=== PATIENT | male | born 1945 | race Caucasian/White ===

== ENCOUNTER → 2016-12-31 | Outpatient (CLI) | payer MEDICARE ==
[2016-12-31 10:59] LABS: Basophils # (A) 0.1 k/uL (0-0.2); Basophils % (A) 1 %; CH 30.6; CHCM 34.5; Eosinophils # (A) 0.2 k/uL (0-0.7); Eosinophils % (A) 4 %; HDW 2.33; HGB 15.4 gm/dL (13.0-17.5); Luc # (Auto) 0.17; Luc % (Auto) 3; Lymphocytes # (A) 1.1 k/uL (1.0-4.8); Lymphocytes % (A) 19 %; MCH 30.5 pg (25.0-35.0); MCHC 34.2 g/dL (31.0-37.0); MCV 89.2 fL (80.0-100.0); Mean Platelet Volume 7.3; Monocytes # (A) 0.4 k/uL (0-1.0); Monocytes % (A) 7 %; Neutrophils # (A) 3.7 k/uL (1.3-7.7); Neutrophils % (A) 67 %; RBC 5.04 m/uL (4.30-5.90); RDW 12.9 % (11.5-15.5); WBC 5.6 k/uL (3.8-10.6); WBC (Perox) 5.95
[2016-12-31 11:05] LABS: ALT 33 U/L (21-72); AST 22 U/L (17-59); Alkaline Phosphatase 58 U/L (38-126); Anion Gap 9 mmol/L; Blood Urea Nitrogen 11 mg/dL (9-20); Calcium 10.1 mg/dL (8.4-10.2); Carbon Dioxide 31 mmol/L (22-30); Chloride 96 mmol/L (98-107); Cholesterol 110 mg/dL (<200); Glucose 114 mg/dL (74-99); HDL Cholesterol 57 mg/dL (40-60); Non-African American GFR(MDRD) >60 (>60 ml/min/1.73 sqM); Potassium 4.5 mmol/L (3.5-5.1); Sodium 136 mmol/L (137-145); Total Bilirubin 1.1 mg/dL (0.2-1.3); Total Protein 7.2 g/dL (6.3-8.2); Triglycerides 71 mg/dL (<150)
== END ==
LOC: LABWHC1 08:38
PROVIDERS: ATTEND Internal Medicine
DX: E78.5 Hyperlipidemia, unspecified (principal); I10 Essential (primary) hypertension
CPT/HCPCS: 36415; 80053; 80061; 84439; 84443; 85025

== ENCOUNTER → 2017-02-15 | Outpatient (CLI) | payer MEDICARE ==
--- NOTE | 2017-02-15 12:53 | FL ---
EXAMINATION: Cervical and Thoracic Esophagram DATE OF EXAM: 02/15/2017 10:35 AM CLINICAL INDICATION: 71-year-old male with trouble swallowing. History of stroke one year ago. Laryng ectomy for head and neck cancer 12 years ago. Patient with similar complaints one year ago status pos t dilatation of the cricopharyngeus and multiple Botox injections. COMPARISON: 03/25/2016 Total Fluoroscopy Time: 2.6 minutes FINDINGS: The patient has a stoma. A plastic cap is present overlying. There is a focal somewhat irregular fill ing defect seen at the level of the plastic button along the anterior wall of the cervical esophagus opposite the C7 level which warrants further evaluation with direct visualization. In addition, there is severe hypertrophy of the cricopharyngeus opposite the C4-C5 level. This result s in a relative obstruction causing prominent pooling of contrast in the hypopharyngeal region. Repea lorne swallows allows for gradual passage of contrast. The thoracic esophagus was evaluated with the contrast that was administered for the cervical portion and shows normal course and caliber without suspicious filling defect. The GE junction region is not well distended limiting its evaluation. Air-contrast and prone drinking for the thoracic esophagus w as not performed due to the relative obstruction. IMPRESSION: 1. Status post laryngectomy with a tracheal stoma. A plastic cap is present here. At the level of the cap, there is a focal filling defect along the anterior wall of the cervical esophagus which warrant s direct visualization. This could represent an area of chronic ulceration or scar tissue. Mass shoul d be excluded. 2. Severe cricopharyngeus hypertrophy causing relative obstruction even to the passage of thick bariu m causing progressive pooling in the hypopharynx. Repeated swallows allows for gradual clearance. 3. The thoracic esophagus appears grossly unremarkable. The GE junction region was not well evaluated due to the relative obstruction proximally.
== END | disposition home or self-care (01) ==
LOC: LABWHC1 09:20
PROVIDERS: ATTEND Otolaryngology Otolaryngic Allergy
DX: J39.2 Other diseases of pharynx (principal); R13.10 Dysphagia, unspecified; Z98.890 Other specified postprocedural states
CPT/HCPCS: 74220

== ENCOUNTER → 2018-03-02 | Outpatient (CLI) | payer MEDICARE ==
--- NOTE | 2018-03-02 16:16 | US ---
EXAMINATION TYPE: US venous doppler duplex LE RT DATE OF EXAM: 03/02/2018 4:00 PM COMPARISON: NONE CLINICAL HISTORY: I82.A21 CHR EMBOLISM AND THROMBOSIS OF RT AXILLARY. varicose veins in lower right l eg, no h/o dvt SIDE PERFORMED: Right TECHNIQUE: The lower extremity deep venous system is examined utilizing real time linear array sonog tomas with graded compression, doppler sonography and color-flow sonography. VESSELS IMAGED: External Iliac Vein (EIV) Common Femoral Vein Deep Femoral Vein Greater Saphenous Vein * Femoral Vein Popliteal Vein Small Saphenous Vein * Proximal Calf Veins (* superficial vessels) Grayscale, color doppler, spectral doppler imaging performed of the deep veins of the lower extremiti es. There is normal flow, compressibility, vascular waveforms. Right Leg: Appears negative for DVT IMPRESSION: No evidence for DVT at this time.
== END | disposition home or self-care (01) ==
LOC: RADUSWWP 15:36
PROVIDERS: ATTEND Family Medicine
DX: I82.421 Acute embolism and thrombosis of right iliac vein (principal)

== ENCOUNTER → 2018-12-08 | Outpatient (CLI) | payer MEDICARE ==
--- NOTE | 2018-12-08 16:04 | CT ---
EXAMINATION TYPE: CT chest w con DATE OF EXAM: 12/08/2018 COMPARISON: None HISTORY: 73-year-old male Hemoptysis. TECHNIQUE: Contiguous axial scanning of the chest after the administration of 100 mL of Isovue M300. Coronal/sagittal reconstructions performed. CT DLP: 537.4mGycm. Automatic exposure control utilized for a dose reduction. FINDINGS: Tracheostomy cannula is present. Heart upper limits of normal in size without pericardial effusion. Aorta normal caliber with conventional arch vessel branching anatomy. Large caliber to the main right and left pulmonary arteries 2.9 and 3.2 cm, respectively, suggesting underlying pulmonary hypertension. Prominent but nonenlarged left axillary lymph nodes measuring up t o 9 mm short axis. No thoracic lymphadenopathy by size criteria. Evaluation of the lungs shows medial biapical pleural parenchymal scarring possibly due to prior radi ation treatment. [id number] diffuse bronchial wall thickening is noted 7 mm right basilar pulmonary nodule, axial image 42. No consolidation or pleural effusion. Small hiatal hernia. Hypodense lesions in the right kidney probably represent cysts but are inadequat mandi characterized. 5 mm calculus nonobstructive in the upper pole of each kidney. Additional 7 mm gal lstone noted. 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 IMPRESSION: 1. Query prior radiation therapy to the neck given tracheostomy and some medial biapical fibrosis. 2. Mild to moderate diffuse bronchial wall thickening can be seen with bronchitis or asthma. 3. 7 mm right basilar pulmonary nodule. A 6-12 month and then an 18-24 month follow-up exams are bernardo mmended. 4. Nonobstructive nephrolithiasis and cholelithiasis. Small hiatal hernia.
== END ==
LOC: RADCTMAIN 13:10
PROVIDERS: ATTEND Family Medicine
DX: M79.89 Other specified soft tissue disorders (principal); K44.9 Diaphragmatic hernia without obstruction or gangrene; J98.8 Other specified respiratory disorders; R91.1 Solitary pulmonary nodule; Z92.3 Personal history of irradiation
CPT/HCPCS: 71260; Q9967

== ENCOUNTER 2019-04-12 22:30 | Emergency (ER) | payer MEDICARE ==
[2019-04-12] MEDS ORDERED: SODIUM CHLORIDE 0.9% 1,000 ML IV STA (22:44)
[2019-04-12] MEDS ORDERED: MORPHINE SULFATE 4 MG/ML SYRINGE IV STA (22:44)
--- NOTE | 2019-04-12 22:45 | ED ---
Abdominal Pain HPI - General Chief Complaint: Abdominal Pain Stated Complaint: Back Pain Source: patient, RN notes reviewed, old records reviewed Mode of arrival: ambulatory Limitations: no limitations - History of Present Illness Initial Comments: This is a 73-year-old male the ER for evaluation. Patient Brenning of back pain and right-sided flank pain. He has history of kidney stones feels 7. Nausea vomiting no diarrhea. No traumas. No fevers. No anterior abdominal pain. No modifying symptoms for pain. Symptoms on and off for a day MD Complaint: abdominal pain, flank pain (Right sided) -: days(s) Location: R flank Radiation: R flank Severity: moderate Quality: stabbing Consistency: intermittent Improves With: nothing Worsens With: nothing Associated Symptoms: nausea - Related Data Home Medications Medication Instructions Recorded Confirmed Cholecalciferol [Vitamin D3] 800 unit PO DAILY 01/27/16 04/12/19 Hydrochlorothiazide 12.5 mg PO DAILY 01/27/16 04/12/19 Levothyroxine Sodium [Synthroid] 88 mcg PO DAILY 01/27/16 04/12/19 Lisinopril [Prinivil] 5 mg PO DAILY 01/27/16 04/12/19 amLODIPine [Norvasc] 2.5 mg PO DAILY 01/27/16 04/12/19 Atorvastatin [Lipitor] 20 mg PO DAILY 04/12/19 04/12/19 Glycopyrrolate [Robinul] 1 mg PO DAILY 04/12/19 04/12/19 Previous Rx's Medication Instructions Recorded Aspirin EC [Ecotrin Low Dose] 81 mg PO DAILY #30 tablet. 01/30/16 Naproxen [Naprosyn] 500 mg PO Q12HR PRN #30 tab 04/13/19 Ondansetron Odt [Zofran ODT] 4 mg PO Q8HR PRN #10 tab 04/13/19 Allergies Allergy/AdvReac Type Severity Reaction Status Date / Time No Known Allergies Allergy Verified 04/12/19 23:05 Review of Systems ROS Statement: Those systems with pertinent positive or pertinent negative responses have been documented in the HPI. ROS Other: All systems not noted in ROS Statement are negative. Past Medical History Past Medical History: Cancer, Hypertension Additional Past Medical History / Comment(s): esophageal varices History of Any Multi-Drug Resistant Organisms: None Reported Additional Past Surgical History / Comment(s): Tracheostomy, dilation of esophageal varices. Past Anesthesia/Blood Transfusion Reactions: No Reported Reaction Past Psychological History: No Psychological Hx Reported Smoking Status: Former smoker Past Alcohol Use History: None Reported - Past Family History Father Family Medical History: No Reported History General Exam Limitations: no limitations General appearance: alert, in no apparent distress Head exam: Present: atraumatic, normocephalic, normal inspection Eye exam: Present: normal appearance, PERRL, EOMI. Absent: scleral icterus, conjunctival injection, periorbital swelling ENT exam: Present: normal exam, mucous membranes moist Neck exam: Present: normal inspection. Absent: tenderness, meningismus, lymphadenopathy Respiratory exam: Present: normal lung sounds bilaterally. Absent: respiratory distress, wheezes, rales, rhonchi, stridor Cardiovascular Exam: Present: regular rate, normal rhythm, normal heart sounds. Absent: systolic murmur, diastolic murmur, rubs, gallop, clicks GI/Abdominal exam: Present: soft, normal bowel sounds. Absent: distended, tenderness, guarding, rebound, rigid Extremities exam: Present: normal inspection, full ROM, normal capillary refill. Absent: tenderness, pedal edema, joint swelling, calf tenderness Back exam: Present: normal inspection Neurological exam: Present: alert, oriented X3, CN II-XII intact Psychiatric exam: Present: normal affect, normal mood Skin exam: Present: warm, dry, intact, normal color. Absent: rash Course Vital Signs 04/12/19 04/12/19 04/13/19 22:34 23:07 01:32 Temperature 98.1 F 98.3 F Pulse Rate 69 80 Respiratory 20 18 18 Rate Blood Pressure 177/81 140/74 O2 Sat by Pulse 95 97 Oximetry Medical Decision Making - Medical Decision Making 73 male the ER for evaluation of abdominal pain flank pain. Positive right-sided kidney stone, which she with pain control hydration, patient can be discharged - Lab Data Result diagrams: 04/12/19 22:54 04/12/19 22:54 Lab Results 04/12/19 04/12/19 04/12/19 Range/Units 22:54 22:54 22:54 WBC 14.4 H (3.8-10.6) k/uL RBC 4.87 (4.30-5.90) m/uL Hgb 14.6 (13.0-17.5) gm/dL Hct 43.2 (39.0-53.0) % MCV 88.8 (80.0-100.0) fL MCH 30.1 (25.0-35.0) pg MCHC 33.9 (31.0-37.0) g/dL RDW 13.3 (11.5-15.5) % Plt Count 251 (150-450) k/uL Neutrophils % 87 % Lymphocytes % 5 % Monocytes % 6 % Eosinophils % 1 % Basophils % 0 % Neutrophils # 12.4 H (1.3-7.7) k/uL Lymphocytes # 0.7 L (1.0-4.8) k/uL Monocytes # 0.9 (0-1.0) k/uL Eosinophils # 0.2 (0-0.7) k/uL Basophils # 0.0 (0-0.2) k/uL Sodium 135 L (137-145) mmol/L Potassium 3.7 (3.5-5.1) mmol/L Chloride 95 L (98-107) mmol/L Carbon Dioxide 27 (22-30) mmol/L Anion Gap 13 mmol/L BUN 16 (9-20) mg/dL Creatinine 1.20 (0.66-1.25) mg/dL Est GFR (CKD-EPI)AfAm 70 (>60 ml/min/1.73 sqM) Est GFR (CKD-EPI)NonAf 61 (>60 ml/min/1.73 sqM) Glucose 200 H (74-99) mg/dL Plasma Lactic Acid Uche 1.1 (0.7-2.0) mmol/L Calcium 9.7 (8.4-10.2) mg/dL Total Bilirubin 1.1 (0.2-1.3) mg/dL AST 26 (17-59) U/L ALT 24 (21-72) U/L Alkaline Phosphatase 75 (38-126) U/L Creatine Kinase 162 (55-170) U/L Total Protein 7.4 (6.3-8.2) g/dL Albumin 4.7 (3.5-5.0) g/dL Amylase 43 (30-110) U/L Lipase 46 (23-300) U/L Urine Color Urine Appearance (Clear) Urine pH (5.0-8.0) Ur Specific Leo (1.001-1.035) Urine Protein (Negative) Urine Glucose (UA) (Negative) Urine Ketones (Negative) Urine Blood (Negative) Urine Nitrite (Negative) Urine Bilirubin (Negative) Urine Urobilinogen (<2.0) mg/dL Ur Leukocyte Esterase (Negative) Urine RBC (0-5) /hpf Urine WBC (0-5) /hpf Ur Squamous Epith Cells (0-4) /hpf Urine Mucus (None) /hpf 04/12/19 Range/Units 23:28 WBC (3.8-10.6) k/uL RBC (4.30-5.90) m/uL Hgb (13.0-17.5) gm/dL Hct (39.0-53.0) % MCV (80.0-100.0) fL MCH (25.0-35.0) pg MCHC (31.0-37.0) g/dL RDW (11.5-15.5) % Plt Count (150-450) k/uL Neutrophils % % Lymphocytes % % Monocytes % % Eosinophils % % Basophils % % Neutrophils # (1.3-7.7) k/uL Lymphocytes # (1.0-4.8) k/uL Monocytes # (0-1.0) k/uL Eosinophils # (0-0.7) k/uL Basophils # (0-0.2) k/uL Sodium (137-145) mmol/L Potassium (3.5-5.1) mmol/L Chloride (98-107) mmol/L Carbon Dioxide (22-30) mmol/L Anion Gap mmol/L BUN (9-20) mg/dL Creatinine (0.66-1.25) mg/dL Est GFR (CKD-EPI)AfAm (>60 ml/min/1.73 sqM) Est GFR (CKD-EPI)NonAf (>60 ml/min/1.73 sqM) Glucose (74-99) mg/dL Plasma Lactic Acid Uche (0.7-2.0) mmol/L Calcium (8.4-10.2) mg/dL Total Bilirubin (0.2-1.3) mg/dL AST (17-59) U/L ALT (21-72) U/L Alkaline Phosphatase (38-126) U/L Creatine Kinase (55-170) U/L Total Protein (6.3-8.2) g/dL Albumin (3.5-5.0) g/dL Amylase (30-110) U/L Lipase (23-300) U/L Urine Color Yellow Urine Appearance Clear (Clear) Urine pH 7.0 (5.0-8.0) Ur Specific Leo 1.013 (1.001-1.035) Urine Protein Negative (Negative) Urine Glucose (UA) 1+ H (Negative) Urine Ketones Trace H (Negative) Urine Blood Small H (Negative) Urine Nitrite Negative (Negative) Urine Bilirubin Negative (Negative) Urine Urobilinogen <2.0 (<2.0) mg/dL Ur Leukocyte Esterase Negative (Negative) Urine RBC 79 H (0-5) /hpf Urine WBC 1 (0-5) /hpf Ur Squamous Epith Cells <1 (0-4) /hpf Urine Mucus Rare H (None) /hpf - Radiology Data Radiology results: report reviewed (CT of pelvis shows breath right-sided ureterolithiasis), image reviewed Disposition Clinical Impression: Kidney stone on right side Disposition: HOME SELF-CARE Condition: Good Instructions (If sedation given, give patient instructions): Kidney Stones (ED) Prescriptions: Naproxen [Naprosyn] 500 mg PO Q12HR PRN #30 tab PRN Reason: Pain Ondansetron Odt [Zofran ODT] 4 mg PO Q8HR PRN #10 tab PRN Reason: nausea/vomiting Is patient prescribed a controlled substance at d/c from ED?: No Referrals: Ester Dumont DO [Primary Care Provider] - 1-2 days
[2019-04-12 23:08] VITALS: RESP 18
[2019-04-12 23:34] LABS: Basophils % (A) 0 %; Eosinophils # (A) 0.2 k/uL (0-0.7); Eosinophils % (A) 1 %; HCT 43.2 % (39.0-53.0); HGB 14.6 gm/dL (13.0-17.5); Lymphocytes # (A) 0.7 k/uL (1.0-4.8); Lymphocytes % (A) 5 %; MCH 30.1 pg (25.0-35.0); MCHC 33.9 g/dL (31.0-37.0); MCV 88.8 fL (80.0-100.0); Mean Platelet Volume 6.4; Monocytes # (A) 0.9 k/uL (0-1.0); Monocytes % (A) 6 %; Neutrophils # (A) 12.4 k/uL (1.3-7.7); Neutrophils % (A) 87 %; Platelet Count 251 k/uL (150-450); RBC 4.87 m/uL (4.30-5.90); RDW 13.3 % (11.5-15.5); WBC 14.4 k/uL (3.8-10.6)
[2019-04-12 23:48] LABS: Appearance,Urine Clear (Clear); Bilirubin,Urine Negative (Negative); Blood,Urine Small (Negative); Color,Urine Yellow; Glucose,Urine (UA) 1+ (Negative); Ketones,Urine Trace (Negative); Leukocyte Esterase,Urine Negative (Negative); Mucus,Urine Rare /hpf; Nitrite,Urine Negative (Negative); Protein,Urine Negative (Negative); RBC,Urine 79 /hpf (0-5); Specific Gravity,Urine 1.013 (1.001-1.035); Squamous Epithelial Cell,Urine <1 /hpf (0-4); Urobilinogen,Urine <2.0 mg/dL (<2.0); WBC,Urine 1 /hpf (0-5)
[2019-04-12 23:55] LABS: Albumin 4.7 g/dL (3.5-5.0); Calcium 9.7 mg/dL (8.4-10.2); Potassium 3.7 mmol/L (3.5-5.1); Total Bilirubin 1.1 mg/dL (0.2-1.3); Total Protein 7.4 g/dL (6.3-8.2)
--- NOTE | 2019-04-13 00:40 | CT ---
EXAM: CT Abdomen and Pelvis With Intravenous Contrast CLINICAL HISTORY: Trauma TECHNIQUE: Axial computed tomography images of the abdomen and pelvis with intravenous contrast. CTDI is 0.085, 0.085, 10.1, 11.2 mGy and DLP is 888.5 mGy-cm. This CT exam was performed using one or more of the following dose reduction techniques: automated exposure control, adjustment of the mA and/or kV according to patient size, and/or use of iterative reconstruction technique. COMPARISON: No relevant prior studies available. FINDINGS: Lung bases: Unremarkable. No mass. No consolidation. ABDOMEN: Liver: Unremarkable. Gallbladder and bile ducts: Gallstones. Pancreas: Unremarkable. Spleen: Unremarkable. Adrenals: Unremarkable. Kidneys and ureters: 3 mm calculus within the proximal right ureter which causes mild hydronephrosis and delayed nephrogram. There are additional nonobstructing calculi and cysts within both kidneys. Stomach and bowel: Noninflamed colonic diverticulosis. PELVIS: Appendix: Appendix is unremarkable. Bladder: Unremarkable. Reproductive: Unremarkable as visualized. ABDOMEN and PELVIS: Intraperitoneal space: Unremarkable. Bones/joints: No acute fracture. No dislocation. Soft tissues: Unremarkable. Vasculature: Vascular calcifications. No abdominal aortic aneurysm. Lymph nodes: Unremarkable. IMPRESSION: 1. 3 mm calculus within the proximal right ureter which causes mild hydronephrosis and delayed nephrogram. 2. There are additional nonobstructing calculi and cysts within both kidneys.
[2019-04-13] MEDS ORDERED: ACET/COD 300 MG/30 MG STARTER PACK 6 TAB BTL PO STA (01:00)
[2019-04-13] MEDS ORDERED: TAMSULOSIN 0.4 MG CAP.ER.24H PO STA (01:00)
[2019-04-13] MEDS ORDERED: KETOROLAC 30 MG/ML 1 ML VIAL IVP STA (01:00)
[2019-04-13 01:35] VITALS: BP 140/74; PULSE 80; TEMP 98.3
== END 2019-04-13 01:35 | disposition home or self-care (01) ==
LOC: EC 22:30
DX: N20.0 Calculus of kidney (principal); I10 Essential (primary) hypertension; Z79.899 Other long term (current) drug therapy; Z79.890 Hormone replacement therapy; Z87.891 Personal history of nicotine dependence; Z85.9 Personal history of malignant neoplasm, unspecified
CPT/HCPCS: 36415; 80053; 82150; 82550; 83605; 83690; 85025; 81001; 87086; 74177; 99285; 96374; 96375; 96361; J2270; J1885

== ENCOUNTER → 2022-07-09 | Outpatient (CLI) | payer MEDICARE ==
[2022-07-09 14:28] LABS: Basophils # (A) 0.04 X 10*3/uL (0.00-0.10); Basophils % (A) 0.6 %; Eosinophils # (A) 0.12 X 10*3/uL (0.04-0.35); Eosinophils % (A) 1.8 %; HCT 45.3 % (39.6-50.0); HGB 15.5 g/dL (13.0-17.0); Immature Grans, Automated 0.1 %; Lymphocytes # (A) 1.57 X 10*3/uL (0.90-5.00); Lymphocytes % (A) 23.5 %; MCH 30.9 pg (27.0-32.0); MCHC 34.2 g/dL (32.0-37.0); MCV 90.4 fL (80.0-97.0); Mean Platelet Volume 9.4 fL (9.5-12.2); Monocytes # (A) 0.76 X 10*3/uL (0.20-1.00); Monocytes % (A) 11.4 %; NRBC Per 100 WBC 0 /100 WBCS (0.0-0.0); Neutrophils # (A) 4.18 X 10*3/uL (1.80-7.70); Neutrophils % (A) 62.6 %; Platelet Count 257 X 10*3/uL (140-440); RBC 5.01 X 10*6/uL (4.40-5.60); RDW 13.3 % (11.5-14.5); WBC 6.68 X 10*3/uL (4.50-10.00)
[2022-07-09 14:37] LABS: Anion Gap 9.3 mmol/L (10.00-18.00); Carbon Dioxide 28.7 mmol/L (20.0-27.5)
== END | disposition home or self-care (01) ==
LOC: LABPAT 11:00
PROVIDERS: ATTEND Orthopaedic Surgery
DX: Z01.812 Encounter for preprocedural laboratory examination (principal); G56.01 Carpal tunnel syndrome, right upper limb
CPT/HCPCS: 36415; 80051; 85025

== ENCOUNTER 2022-07-23 14:16 | Day surgery (SDC) | payer MEDICARE ==
[2022-07-22 13:12] VITALS: BMI 27.3
--- NOTE | 2022-07-23 02:21 | HP ---
HISTORY AND PHYSICAL DATE OF SURGERY: 07/23/2022. HISTORY OF PRESENT ILLNESS: Noé Lima is a 76-year-old patient, seen with progressive symptomatic right carpal tunnel syndrome. After treatment options have been discussed with him, he elected to proceed with decompression of right median nerve. Consent regarding the procedure was obtained. PAST MEDICAL HISTORY: Hypertension, hypothyroidism. PAST SURGICAL HISTORY: Tracheostomy and facial surgery. DAILY MEDICATIONS: 1. Hydrochlorothiazide. 2. Lisinopril. 3. Synthroid. 4. Amlodipine. 5. Atorvastatin. ALLERGIES: None reported. SOCIAL HISTORY: He denies tobacco use. PHYSICAL EVALUATION OF THE RIGHT HAND: He has a positive carpal compression and carpal Tinel's exacerbating numbness and tingling throughout the median nerve distribution. There is some early thenar atrophy of the muscle. There is good perfusion distally with a good radial pulse present. RADIOGRAPHS: Reveal some diffuse osteoarthritic changes. A previous EMG reveals severe carpal tunnel syndrome. IMPRESSION: 1. Right carpal tunnel syndrome. 2. Hypertension. 3. Hypothyroidism. PLAN: Decompression of right median nerve. MMODL / IJN: [id number] /
[~2022-07-23 14:16] MED LIST: DEXAMETHASONE SOD PHOSPHATE 4 MG/ML 1 ML VIAL IV ONE; HYDROmorphone 0.5 MG/0.5 ML SYRINGE IVP PRN; LACTATED RINGERS 1,000 ML IV SCH; LIDOCAINE 1% (10MG/ML) FOR IV START INTRADERMA PRN; MIDAZOLAM 2 MG/2 ML VIAL IV PRN; ONDANSETRON 4 MG/2 ML VIAL IVP ONE
[2022-07-23 15:30] VITALS: RESP 16; TEMP 98.2
[2022-07-23 15:49] LABS: Glucose,Whole Blood 105 mg/dL (70-110)
[2022-07-23] MEDS ORDERED: MIDAZOLAM 2 MG/2 ML VIAL ONE (16:41)
[2022-07-23] MEDS ORDERED: PROPOFOL 10 MG/ML 20 ML VIAL IV ONE (16:41)
[2022-07-23] MEDS ORDERED: fentaNYL (PF) 50 MCG/ML 2 ML AMP ONE (16:41)
[2022-07-23] MEDS ORDERED: BUPIVACAINE (PF) 0.25% 30 ML VIAL SQ ONE (16:56)
--- NOTE | 2022-07-23 17:15 | P.OP ---
Date of Procedure: 07/23/22 Preoperative Diagnosis: Right carpal tunnel syndrome Postoperative Diagnosis: Right carpal tunnel syndrome Procedure(s) Performed: Decompression right median nerve Anesthesia: MAC, local Surgeon: Alfie Joseph Estimated Blood Loss (ml): 0 Pathology: none sent Condition: stable Disposition: PACU Indications for Procedure: 76-year-old gentleman seen with symptomatic right carpal tunnel syndrome. After treatment options were discussed, he elected to proceed with decompression right median nerve. Operative Findings: See description of procedure Description of Procedure: Patient was taken to the operative suite. He received preoperative IV antibiotics. Well-padded tourniquet placed proximal right upper extremity. The right upper extremity was prepped and draped in the normal sterile orthopedic fashion. He received IV sedation by the department of anesthesia. The proposed incision site was infiltrated with 10 mL of quarter percent plain Marcaine. Once sufficient local analgesia was noted we elevated the extremity and insufflated tourniquet to 250. I now made an incision beginning at the distal volar wrist crease extending distally approximately 3 cm in line with the fourth metacarpal sharply through skin. We dissected down through the palmar fascia to the transverse carpal ligament. I now made a small incision through the central portion of the transverse carpal ligament. I completely released proximally and distally with blunt Metzenbaums. I noted complete release of the transverse carpal ligament and good decompression of the nerve. We had good hemostasis. We applied sterile dressings. The tourniquet was released and immediate capillary refill noted. Web roll and a loose Coban were applied. Patient was awakened and transferred to recovery stable condition having tolerated well.
[2022-07-23 18:08] VITALS: BP 158/80; PULSE 60
== END 2022-07-23 17:50 | disposition home or self-care (01) ==
LOC: OR 14:16
PROVIDERS: ATTEND Orthopaedic Surgery
DX: G56.01 Carpal tunnel syndrome, right upper limb (principal); I10 Essential (primary) hypertension; E03.9 Hypothyroidism, unspecified; Z93.0 Tracheostomy status; Z98.890 Other specified postprocedural states; Z85.89 Personal history of malignant neoplasm of other organs and systems; Z79.890 Hormone replacement therapy; Z79.899 Other long term (current) drug therapy; Z86.73 Personal history of transient ischemic attack (TIA), and cerebral infarction without residual deficits
CPT/HCPCS: 64721; J2250; J1100; J0690; J2405; J3010; J2704

== ENCOUNTER → 2023-05-28 | Outpatient (CLI) | payer MEDICARE ==
--- NOTE | 2023-05-28 11:59 | MR ---
EXAMINATION TYPE: MR brain wo con DATE OF EXAM: 05/28/2023 COMPARISON: CT brain 01/28/2016 HISTORY: Dizziness. TECHNIQUE: T1-weighted sagittal, T2, FLAIR, and diffusion axial, and T2 coronal coronal views of the brain are submitted. FINDINGS: There is no evidence of acute ischemia. There is any area of encephalomalacia involving the right parietal temporal lobe compatible ischemia. Adjacent increased signal FLAIR imaging likely on the basis of reactive iliopsoas. There is scattered an mild areas of abnormal signal within the deep white matter most typical of barrington te microvascular ischemia. There is moderate sinusitis and bilateral mild chronic mastoiditis. Orbits are symmetric. There appears to be signal within the distal right ICA signal void suggestive of chronic thrombosis. Craniocervical junction is maintained. Sella turcica are normal. Moderate generalized degenerative ch lia. IMPRESSION: 1. No acute intracranial process moderate generalized degenerative change in areas of remote ischemia \encephalomalacia. 2. Moderate changes of chronic sinusitis. 3. Mild bilateral mastoiditis. 4. 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
== END | disposition home or self-care (01) ==
LOC: RADMRIMAIN 10:20
PROVIDERS: ATTEND Family Medicine
DX: J32.9 Chronic sinusitis, unspecified (principal); I63.341 Cerebral infarction due to thrombosis of right cerebellar artery; H70.13 Chronic mastoiditis, bilateral; R42 Dizziness and giddiness
CPT/HCPCS: 70551

== ENCOUNTER 2023-12-17 01:17 | Inpatient (IN) | payer MEDICARE ==
--- NOTE | 2023-12-17 01:45 | ED ---
Fever HPI - General Chief Complaint: Altered Mental Status Stated Complaint: FALL Time Seen by Provider: 12/17/23 01:27 Source: EMS, RN notes reviewed, old records reviewed Mode of arrival: EMS Limitations: altered mental status - History of Present Illness Initial Comments: This is a 78-year-old male to the ER for evaluation of fever. Patient has morgan re fever here in the emergency room. Not feeling well cough and congestion for unknown amount time. Patient is unable to provide history secondary to inability to speak MD Complaint: fever, malaise, weakness -: hour(s) Temperature Source: subjective Associated Symptoms: chills, rigors Treatments Prior to Arrival: none - Related Data Home Medications Medication Instructions Recorded Confirmed Levothyroxine Sodium [Synthroid] 88 mcg PO DAILY 01/27/16 12/17/23 Glycopyrrolate [Robinul] 2 mg PO TID 04/12/19 12/17/23 Cholecalciferol [Vitamin D3 (25 25 mcg PO DAILY 12/17/23 12/17/23 Mcg = 1000 Iu)] Cyclobenzaprine [Flexeril] 5 mg PO TID 12/17/23 12/17/23 Previous Rx's Medication Instructions Recorded Aspirin EC [Ecotrin Low Dose] 81 mg PO DAILY #30 tablet. 01/30/16 Atorvastatin [Lipitor] 40 mg PO HS tab 12/19/23 cefTRIAXone [Rocephin] 2 gm IVPB Q12HR each 12/19/23 Allergies Allergy/AdvReac Type Severity Reaction Status Date / Time No Known Allergies Allergy Verified 12/17/23 08:00 Review of Systems ROS Statement: Those systems with pertinent positive or pertinent negative responses have been documented in the HPI. ROS Other: All systems not noted in ROS Statement are negative. Past Medical History Past Medical History: Cancer, Hypertension Additional Past Medical History / Comment(s): esophageal varices History of Any Multi-Drug Resistant Organisms: None Reported Additional Past Surgical History / Comment(s): Tracheostomy, dilation of esophageal varices. Past Anesthesia/Blood Transfusion Reactions: No Reported Reaction Past Psychological History: No Psychological Hx Reported Smoking Status: Former smoker - Past Family History Father Family Medical History: No Reported History, Unable to Obtain General Exam Limitations: altered mental status General appearance: alert, in no apparent distress Head exam: Present: atraumatic, normocephalic, normal inspection Eye exam: Present: normal appearance, PERRL, EOMI. Absent: scleral icterus, conjunctival injection, periorbital swelling ENT exam: Present: normal exam, mucous membranes moist Neck exam: Present: normal inspection. Absent: tenderness, meningismus, lymphadenopathy Respiratory exam: Present: normal lung sounds bilaterally. Absent: respiratory distress, wheezes, rales, rhonchi, stridor Cardiovascular Exam: Present: regular rate, normal rhythm, normal heart sounds. Absent: systolic murmur, diastolic murmur, rubs, gallop, clicks GI/Abdominal exam: Present: soft, normal bowel sounds. Absent: distended, te nderness, guarding, rebound, rigid Extremities exam: Present: normal inspection, full ROM, normal capillary refill. Absent: tenderness, pedal edema, joint swelling, calf tenderness Back exam: Present: normal inspection Neurological exam: Present: alert, oriented X3, CN II-XII intact Psychiatric exam: Present: normal affect, normal mood Skin exam: Present: warm, dry, intact, normal color. Absent: rash Course Vital Signs 12/17/23 12/17/23 12/17/23 01:23 02:04 03:00 Temperature 101.6 F H Pulse Rate 124 H 122 H 102 H Respiratory 18 20 24 Rate Blood Pressure 147/81 154/91 124/70 O2 Sat by Pulse 94 L 94 L 92 L Oximetry 12/17/23 12/17/23 12/17/23 05:00 06:40 08:20 Temperature 98.7 F 98.1 F Pulse Rate 95 92 Respiratory 26 H 22 Rate Blood Pressure 111/72 O2 Sat by Pulse 90 L Oximetry 12/17/23 12/17/23 12/17/23 08:30 08:40 08:50 Temperature Pulse Rate 85 92 Respiratory 9 L 15 35 H Rate Blood Pressure O2 Sat by Pulse Oximetry 12/17/23 12/17/23 12/17/23 09:00 09:10 09:20 Temperature Pulse Rate 86 90 90 Respiratory 32 H 9 L 24 Rate Blood Pressure O2 Sat by Pulse Oximetry 12/17/23 12/17/23 12/17/23 09:30 09:40 09:50 Temperature 98.4 F Pulse Rate 89 91 Respiratory 29 H 33 H 18 Rate Blood Pressure 127/82 O2 Sat by Pulse 92 L Oximetry 12/17/23 12/17/2324 10:00 10:10 10:20 Temperature Pulse Rate 92 89 105 H Respiratory 16 36 H 19 Rate Blood Pressure 127/82 127/82 127/82 O2 Sat by Pulse Oximetry 12/17/23 12/17/23 12/17/23 10:30 10:40 10:50 Temperature Pulse Rate 89 95 Respiratory 23 28 H 23 Rate Blood Pressure 127/82 127/82 127/82 O2 Sat by Pulse Oximetry 12/17/23 12/17/23 12/17/23 11:00 11:10 11:20 Temperature Pulse Rate 100 103 H 96 Respiratory 22 25 H 22 Rate Blood Pressure 127/82 127/82 O2 Sat by Pulse Oximetry 12/17/23 12/17/23 12/17/23 11:30 11:40 11:50 Temperature Pulse Rate 107 H Respiratory 35 H Rate Blood Pressure 127/82 127/82 127/82 O2 Sat by Pulse Oximetry 12/17/23 12/17/23 12/17/23 12:00 12:11 12:20 Temperature Pulse Rate Respiratory Rate Blood Pressure 127/82 127/82 127/82 O2 Sat by Pulse Oximetry 12/17/23 12/17/23 12/17/23 12:30 12:40 12:42 Temperature 98.4 F Pulse Rate Respiratory Rate Blood Pressure 127/82 127/82 O2 Sat by Pulse Oximetry 12/17/23 12/17/23 12/17/23 12:50 13:00 13:10 Temperature Pulse Rate Respiratory Rate Blood Pressure 127/82 127/82 127/82 O2 Sat by Pulse Oximetry 12/17/23 12/17/23 12/17/23 13:20 13:30 13:40 Temperature Pulse Rate Respiratory Rate Blood Pressure 127/82 127/82 127/82 O2 Sat by Pulse Oximetry 12/17/23 12/17/23 12/17/23 13:50 14:00 14:09 Temperature 101.6 F H Pulse Rate 95 Respiratory 26 H Rate Blood Pressure 127/82 127/82 166/95 O2 Sat by Pulse 92 L Oximetry - Reevaluation(s) Reevaluation #1: 12/17/23 01:45 Medical records reviewed Reevaluation #2: Patient symptoms are improved here in the ER with improved vital signs, symptom control Reevaluation #3: Patient informed of results and questions answered Reevaluation #4: Was pt. sent in by a medical professional or institution (, PA, [employer], urgent care, hospital, or senior care...) When possible be specific @ -no Did you speak to anyone other than the patient for history (EMS, parent, family, police, friend...)? What history was obtained from this source @ -no Did you review nursing and triage notes (agree or disagree)? Why? @ -agree Are old charts reviewed (outside hosp., previous admission, EMS record, old EKG, old radiological studies, urgent care reports/EKG's, senior care records)? Report findings @ -yes Differential Diagnosis (chest pain, altered mental status, abdominal pain women, abdominal pain men, vaginal bleeding, weakness, fever, dyspnea, syncope, headache, dizziness, GI bleed, back pain, seizure, CVA, palpatations, mental health, musculoskeletal)? @ -prior EKG interpreted by me (3pts min.). @ -yes X-rays interpreted by me (1pt min.). @ -yes negative for acute disease CT interpreted by me (1pt min.). @ -no U/S interpreted by me (1pt. min.). @ -no What testing was considered but not performed or refused? (CT, X-rays, U/S, l abs)? Why? @ -none What meds were considered but not given or refused? Why? @ -none Did you discuss the management of the patient with other professionals (professionals i.e. , [facility], [employer], lab, RT, psych nurse, social media marketer, family living educator, teacher, community reinvestment act officer, case monitor)? Give summary @ -no Was smoking cessation discussed for >3mins.? @ -no Was critical care preformed (if so, how long)? @ -yes31 Were there social determinants of health that impacted care today? How? (Homelessness, low income, unemployed, alcoholism, drug addiction, transportation, low edu. Level, literacy, decrease access to med. care, long term, rehab)? @ -none Was there de-escalation of care discussed even if they declined (Discuss DNR or withdrawal of care, Hospice)? DNR status @ -no What co-morbidities impacted this encounter? (DM, HTN, Smoking, COPD, CAD, Cancer, CVA, ARF, Chemo, Hep., AIDS, mental health diagnosis, sleep apnea, morbid obesity)? @ -none Was patient admitted / discharged? Hospital course, mention meds given and route, prescriptions, significant lab abnormalities, going to OR and other pertinent info. @ - 78 male to be admitted with a fall, multiple falls tonight with fever and weakness. Likely cause of sepsis. No cause of fever found, patient will be admitted for IV antibiotics and further evaluation of severe weakness persisting and increasing weakness Admitted Undiagnosed new problem with uncertain prognosis? @ -no Drug Therapy requiring intensive monitoring for toxicity (Heparin, Nitro, Insulin, Cardizem)? @ -no Were any procedures done? @ -no Diagnosis/symptom? @ -Fever, weakness, suspect underlying pneumonia Acute, or Chronic, or Acute on Chronic? @ -Acute Uncomplicated (without systemic symptoms) or Complicated (systemic symptoms)? @ -Complicated Side effects of treatment? @ -no Exacerbation, Progression, or Severe Exacerbation? @ -exacerbation Poses a threat to life or bodily function? How? (Chest pain, USA, PA, pneumonia, PE, COPD, DKA, ARF, appy, cholecystitis, CVA, Diverticulitis, Homicidal, Suicidal, threat to staff... and all critical care pts) @ -yes Reevaluation #5: Differential Fever: Pneumonia, viral URI, endocarditis, myocarditis, pericarditis, otitis, sinusitis, peritonsillar Abscess, retropharyngeal Abscess, epiglottitis, peritonitis, appendicitis, Chrissy cystitis, diverticulitis, hepatitis, colitis, UTI, PID, TOA, pyelonephritis, prostatitis, epididymitis, meningitis, encephalitis, pulmonary embolism, CVA, thyroid storm, pancreatitis, adrenal crisis, cavernous sinus thrombosis, this is not meant to be an all-inclusive list. - Consultations Consultation #1: Spoke with admitting physicians who agreed to admit this patient Procedures - Sepsis Sepsis Focused Exam #1 Time Sepsis Criteria Met: 04:00 Sepsis Focused Exam Date: 12/17/23 Sepsis Focused Exam Time: 07:00 Sepsis Focused Exam Complete: Yes Vital Signs & RN Notes Reviewed: Yes Capillary Refill: < 2 Seconds: Fingers, Toes Peripheral Pulses: Normal: Radial (R), Radial (L), Posterior Tibialis (R), Posterior Tibialis (L), Dorsalis Pedis (R), Dorsalis Pedis (L) Skin Color: Normal for Patient, Ashsara Respiratory Exam: normal lung sounds Cardiovascular Exam: tachycardia Medical Decision Making - Medical Decision Making 78 male to be admitted with a fall, multiple falls tonight with fever and weakness. No cause of fever found, patient will be admitted for IV antibiotics and further evaluation of severe weakness persisting and increasing weakness - Lab Data Result diagrams: 12/20/23 04:11 12/20/23 04:11 Lab Results 12/17/23 12/17/23 12/17/23 Range/Units 01:48 01:48 01:48 WBC 13.8 H (3.8-10.6) k/uL RBC 4.07 L (4.30-5.90) m/uL Hgb 12.2 L (13.0-17.5) gm/dL Hct 35.5 L (39.0-53.0) % MCV 87.3 (80.0-100.0) fL MCH 30.0 (25.0-35.0) pg MCHC 34.4 (31.0-37.0) g/dL RDW 13.0 (11.5-15.5) % Plt Count 320 (150-450) k/uL MPV 8.3 Neutrophils % 91 % Lymphocytes % 1 % Monocytes % 7 % Eosinophils % 0 % Basophils % 0 % Neutrophils # 12.6 H (1.3-7.7) k/uL Lymphocytes # 0.2 L (1.0-4.8) k/uL Monocytes # 0.9 (0-1.0) k/uL Eosinophils # 0.0 (0-0.7) k/uL Basophils # 0.0 (0-0.2) k/uL Sample Site ABG pH (7.35-7.45) ABG pCO2 (35-45) mmHg ABG pO2 (83-108) mmHg ABG HCO3 (21-25) mmol/L ABG Total CO2 (19-24) mmol/L ABG O2 Saturation (94-97) % ABG Base Excess mmol/L Mohinder Test FiO2 % Sodium 130 L (137-145) mmol/L Potassium 4.3 (3.5-5.1) mmol/L Chloride 96 L (98-107) mmol/L Carbon Dioxide 21 L (22-30) mmol/L Anion Gap 13 mmol/L BUN 16 (9-20) mg/dL Creatinine 0.81 (0.66-1.25) mg/dL Est GFR (CKD-EPI)AfAm >90 (>60 ml/min/1.73 sqM) Est GFR (CKD-EPI)NonAf 86 (>60 ml/min/1.73 sqM) Glucose 223 H (74-99) mg/dL POC Glucose (mg/dL) (70-110) mg/dL POC Glu Kitchen Assistant ID Lactic Ac Sepsis Rflx Plasma Lactic Acid [place]che (0.7-2.0) mmol/L Calcium 8.8 (8.4-10.2) mg/dL Phosphorus 2.9 (2.5-4.5) mg/dL Magnesium 1.9 (1.6-2.3) mg/dL Total Bilirubin 1.3 (0.2-1.3) mg/dL AST 88 H (17-59) U/L ALT 135 H (4-49) U/L Alkaline Phosphatase 113 (38-126) U/L Ammonia (<30) umol/L Total Protein 7.2 (6.3-8.2) g/dL Albumin 3.7 (3.5-5.0) g/dL Procalcitonin (0.02-0.09) ng/mL Urine Color Light Yellow Urine Appearance Clear (Clear) Urine pH 5.5 (5.0-8.0) Ur Specific [place] 1.014 (1.001-1.035) Urine Protein Trace H (Negative) Urine Glucose (UA) 1+ H (Negative) Urine Ketones 1+ H (Negative) Urine Blood Trace H (Negative) Urine Nitrite Negative (Negative) Urine Bilirubin Negative (Negative) Urine Urobilinogen <2.0 (<2.0) mg/dL Ur Leukocyte Esterase Negative (Negative) Urine RBC 4 (0-5) /hpf Urine WBC 6 H (0-5) /hpf Ur Squamous Epith Cells <1 (0-4) /hpf Urine Bacteria Rare H (None) /hpf Hyaline Casts 13 H (0-2) /lpf Urine Mucus Rare H (None) /hpf Influenza Type A (PCR) (Not Detectd) Influenza Type B (PCR) (Not Detectd) RSV (PCR) (Not Detectd) SARS-CoV-2 (PCR) (Not Detectd) 12/17/23 12/17/23 12/17/23 Range/Units 01:48 01:48 02:29 WBC (3.8-10.6) k/uL RBC (4.30-5.90) m/uL Hgb (13.0-17.5) gm/dL Hct (39.0-53.0) % MCV (80.0-100.0) fL MCH (25.0-35.0) pg MCHC (31.0-37.0) g/dL RDW (11.5-15.5) % Plt Count (150-450) k/uL MPV Neutrophils % % Lymphocytes % % Monocytes % % Eosinophils % % Basophils % % Neutrophils # (1.3-7.7) k/uL Lymphocytes # (1.0-4.8) k/uL Monocytes # (0-1.0) k/uL Eosinophils # (0-0.7) k/uL Basophils # (0-0.2) k/uL Sample Site ABG pH (7.35-7.45) ABG pCO2 (35-45) mmHg ABG pO2 (83-108) mmHg ABG HCO3 (21-25) mmol/L ABG Total CO2 (19-24) mmol/L ABG O2 Saturation (94-97) % ABG Base Excess mmol/L Mohinder Test FiO2 % Sodium (137-145) mmol/L Potassium (3.5-5.1) mmol/L Chloride (98-107) mmol/L Carbon Dioxide (22-30) mmol/L Anion Gap mmol/L BUN (9-20) mg/dL Creatinine (0.66-1.25) mg/dL Est GFR (CKD-EPI)AfAm (>60 ml/min/1.73 sqM) Est GFR (CKD-EPI)NonAf (>60 ml/min/1.73 sqM) Glucose (74-99) mg/dL POC Glucose (mg/dL) (70-110) mg/dL POC Glu Kitchen Assistant ID Lactic Ac Sepsis Rflx Y Plasma Lactic Acid Uche 3.2 H* (0.7-2.0) mmol/L Calcium (8.4-10.2) mg/dL Phosphorus (2.5-4.5) mg/dL Magnesium (1.6-2.3) mg/dL Total Bilirubin (0.2-1.3) mg/dL AST (17-59) U/L ALT (4-49) U/L Alkaline Phosphatase (38-126) U/L Ammonia (<30) umol/L Total Protein (6.3-8.2) g/dL Albumin (3.5-5.0) g/dL Procalcitonin (0.02-0.09) ng/mL Urine Color Urine Appearance (Clear) Urine pH (5.0-8.0) Ur Specific [place] (1.001-1.035) Urine Protein (Negative) Urine Glucose (UA) (Negative) Urine Ketones (Negative) Urine Blood (Negative) Urine Nitrite (Negative) Urine Bilirubin (Negative) Urine Urobilinogen (<2.0) mg/dL Ur Leukocyte Esterase (Negative) Urine RBC (0-5) /hpf Urine WBC (0-5) /hpf Ur Squamous Epith Cells (0-4) /hpf Urine Bacteria (None) /hpf Hyaline Casts (0-2) /lpf Urine Mucus (None) /hpf Influenza Type A (PCR) Not Detected (Not Detectd) Influenza Type B (PCR) Not Detected (Not Detectd) RSV (PCR) Not Detected (Not Detectd) SARS-CoV-2 (PCR) Not Detected (Not Detectd) 12/17/23 12/17/23 12/17/23 Range/Units 05:15 09:33 15:18 WBC (3.8-10.6) k/uL RBC (4.30-5.90) m/uL Hgb (13.0-17.5) gm/dL Hct (39.0-53.0) % MCV (80.0-100.0) fL MCH (25.0-35.0) pg MCHC (31.0-37.0) g/dL RDW (11.5-15.5) % Plt Count (150-450) k/uL MPV Neutrophils % % Lymphocytes % % Monocytes % % Eosinophils % % Basophils % % Neutrophils # (1.3-7.7) k/uL Lymphocytes # (1.0-4.8) k/uL Monocytes # (0-1.0) k/uL Eosinophils # (0-0.7) k/uL Basophils # (0-0.2) k/uL Sample Site ABG pH (7.35-7.45) ABG pCO2 (35-45) mmHg ABG pO2 (83-108) mmHg ABG HCO3 (21-25) mmol/L ABG Total CO2 (19-24) mmol/L ABG O2 Saturation (94-97) % ABG Base Excess mmol/L Mohinder Test FiO2 % Sodium (137-145) mmol/L Potassium (3.5-5.1) mmol/L Chloride (98-107) mmol/L Carbon Dioxide (22-30) mmol/L Anion Gap mmol/L BUN (9-20) mg/dL Creatinine (0.66-1.25) mg/dL Est GFR (CKD-EPI)AfAm (>60 ml/min/1.73 sqM) Est GFR (CKD-EPI)NonAf (>60 ml/min/1.73 sqM) Glucose (74-99) mg/dL POC Glucose (mg/dL) 189 H (70-110) mg/dL POC Glu Kitchen Assistant ID Roopa Castellano Lactic Ac Sepsis Rflx Plasma Lactic Acid Uche 1.5 (0.7-2.0) mmol/L Calcium (8.4-10.2) mg/dL Phosphorus (2.5-4.5) mg/dL Magnesium (1.6-2.3) mg/dL Total Bilirubin (0.2-1.3) mg/dL AST (17-59) U/L ALT (4-49) U/L Alkaline Phosphatase (38-126) U/L Ammonia (<30) umol/L Total Protein (6.3-8.2) g/dL Albumin (3.5-5.0) g/dL Procalcitonin 0.43 H (0.02-0.09) ng/mL Urine Color Urine Appearance (Clear) Urine pH (5.0-8.0) Ur Specific [place] (1.001-1.035) Urine Protein (Negative) Urine Glucose (UA) (Negative) Urine Ketones (Negative) Urine Blood (Negative) Urine Nitrite (Negative) Urine Bilirubin (Negative) Urine Urobilinogen (<2.0) mg/dL Ur Leukocyte Esterase (Negative) Urine RBC (0-5) /hpf Urine WBC (0-5) /hpf Ur Squamous Epith Cells (0-4) /hpf Urine Bacteria (None) /hpf Hyaline Casts (0-2) /lpf Urine Mucus (None) /hpf Influenza Type A (PCR) (Not Detectd) Influenza Type B (PCR) (Not Detectd) RSV (PCR) (Not Detectd) SARS-CoV-2 (PCR) (Not Detectd) 12/17/23 12/17/23 12/17/23 Range/Units 15:31 15:51 18:27 WBC (3.8-10.6) k/uL RBC (4.30-5.90) m/uL Hgb (13.0-17.5) gm/dL Hct (39.0-53.0) % MCV (80.0-100.0) fL MCH (25.0-35.0) pg MCHC (31.0-37.0) g/dL RDW (11.5-15.5) % Plt Count (150-450) k/uL MPV Neutrophils % % Lymphocytes % % Monocytes % % Eosinophils % % Basophils % % Neutrophils # (1.3-7.7) k/uL Lymphocytes # (1.0-4.8) k/uL Monocytes # (0-1.0) k/uL Eosinophils # (0-0.7) k/uL Basophils # (0-0.2) k/uL Sample Site rrad ABG pH 7.48 H (7.35-7.45) ABG pCO2 31 L (35-45) mmHg ABG pO2 67 L (83-108) mmHg ABG HCO3 23 (21-25) mmol/L ABG Total CO2 24 (19-24) mmol/L ABG O2 Saturation 94.0 (94-97) % ABG Base Excess -0.4 mmol/L Mohinder Test Yes FiO2 40 % Sodium (137-145) mmol/L Potassium (3.5-5.1) mmol/L Chloride (98-107) mmol/L Carbon Dioxide (22-30) mmol/L Anion Gap mmol/L BUN (9-20) mg/dL Creatinine (0.66-1.25) mg/dL Est GFR (CKD-EPI)AfAm (>60 ml/min/1.73 sqM) Est GFR (CKD-EPI)NonAf (>60 ml/min/1.73 sqM) Glucose (74-99) mg/dL POC Glucose (mg/dL) 184 H (70-110) mg/dL POC Glu Kitchen Assistant ID Yeni Miller Lactic Ac Sepsis Rflx Plasma Lactic Acid Uche (0.7-2.0) mmol/L Calcium (8.4-10.2) mg/dL Phosphorus (2.5-4.5) mg/dL Magnesium (1.6-2.3) mg/dL Total Bilirubin (0.2-1.3) mg/dL AST (17-59) U/L ALT (4-49) U/L Alkaline Phosphatase (38-126) U/L Ammonia 9 (<30) umol/L Total Protein (6.3-8.2) g/dL Albumin (3.5-5.0) g/dL Procalcitonin (0.02-0.09) ng/mL Urine Color Urine Appearance (Clear) Urine pH (5.0-8.0) Ur Specific [place] (1.001-1.035) Urine Protein (Negative) Urine Glucose (UA) (Negative) Urine Ketones (Negative) Urine Blood (Negative) Urine Nitrite (Negative) Urine Bilirubin (Negative) Urine Urobilinogen (<2.0) mg/dL Ur Leukocyte Esterase (Negative) Urine RBC (0-5) /hpf Urine WBC (0-5) /hpf Ur Squamous Epith Cells (0-4) /hpf Urine Bacteria (None) /hpf Hyaline Casts (0-2) /lpf Urine Mucus (None) /hpf Influenza Type A (PCR) (Not Detectd) Influenza Type B (PCR) (Not Detectd) RSV (PCR) (Not Detectd) SARS-CoV-2 (PCR) (Not Detectd) - EKG Data -: EKG Interpreted by Me (EKG is sinus tachycardia 117 OH 161 QRS 106 QTc 303) Critical Care Time Critical Care Time: Yes Total Critical Care Time: 31 Disposition Clinical Impression: Altered mental status, Fever, Weakness, Urinary retention, History of throat cancer, Sepsis, Pneumonia Disposition: ADMITTED IP TO THIS HOSP Condition: Fair Is patient prescribed a controlled substance at d/c from ED?: No Time of Disposition: 06:00
[2023-12-17] MEDS: ACETAMINOPHEN IV (For NPO) 1,000 MG in EMPTY BAG 1 BAG IVPB ONE (02:00)
[2023-12-17] MEDS: SODIUM CHLORIDE 0.9% 1,000 ML IV STA (02:01)
[2023-12-17] MEDS: SODIUM CHLORIDE 0.9% 500 ML 500 ML IV STA (02:01)
[2023-12-17 02:16] LABS: ALT 135 U/L (4-49); AST 88 U/L (17-59); African American GFR (CKD) >90 (>60 ml/min/1.73 sqM); Albumin 3.7 g/dL (3.5-5.0); Alkaline Phosphatase 113 U/L (38-126); Anion Gap 13 mmol/L; Blood Urea Nitrogen 16 mg/dL (9-20); Calcium 8.8 mg/dL (8.4-10.2); Carbon Dioxide 21 mmol/L (22-30); Chloride 96 mmol/L (98-107); Glucose 223 mg/dL (74-99); Magnesium 1.9 mg/dL (1.6-2.3); Non-African American GFR(CKD) 86 (>60 ml/min/1.73 sqM); Phosphorus 2.9 mg/dL (2.5-4.5); Sodium 130 mmol/L (137-145); Total Bilirubin 1.3 mg/dL (0.2-1.3); Total Protein 7.2 g/dL (6.3-8.2)
--- NOTE | 2023-12-17 02:21 | XR ---
EXAMINATION TYPE: XR chest 1V portable DATE OF EXAM: 12/17/2023 COMPARISON: Chest CT December 08, 2018 HISTORY: Chest pain TECHNIQUE: Single frontal view of the chest is obtained. FINDINGS: There is some chronic parenchymal changes bilaterally without suspicious focal air space o pacity, pleural effusion, or pneumothorax seen. Cardiomegaly is redemonstrated. Osseous structures ar e intact. IMPRESSION: Cardiomegaly without acute pulmonary process.
[2023-12-17 02:26] LABS: Potassium 4.3 mmol/L (3.5-5.1)
[2023-12-17 02:44] LABS: Basophils % (A) 0 %; Eosinophils % (A) 0 %; HCT 35.5 % (39.0-53.0); HGB 12.2 gm/dL (13.0-17.5); Lymphocytes # (A) 0.2 k/uL (1.0-4.8); Lymphocytes % (A) 1 %; MCHC 34.4 g/dL (31.0-37.0); MCV 87.3 fL (80.0-100.0); Mean Platelet Volume 8.3; Monocytes # (A) 0.9 k/uL (0-1.0); Monocytes % (A) 7 %; Neutrophils # (A) 12.6 k/uL (1.3-7.7); Neutrophils % (A) 91 %; Platelet Count 320 k/uL (150-450); RBC 4.07 m/uL (4.30-5.90); WBC 13.8 k/uL (3.8-10.6)
[2023-12-17] MEDS: IBUPROFEN IV 800 MG in SODIUM CHLORIDE 0.9% 250 ML IV ONE (02:45)
[2023-12-17 03:25] LABS: Appearance,Urine Clear (Clear); Bacteria,Urine Rare /hpf; Bilirubin,Urine Negative (Negative); Blood,Urine Trace (Negative); Color,Urine Light Yellow; Glucose,Urine (UA) 1+ (Negative); Hyaline Casts,Urine 13 /lpf (0-2); Ketones,Urine 1+ (Negative); Leukocyte Esterase,Urine Negative (Negative); Mucus,Urine Rare /hpf; Nitrite,Urine Negative (Negative); PH, Urine 5.5 (5.0-8.0); Protein,Urine Trace (Negative); RBC,Urine 4 /hpf (0-5); Specific Gravity,Urine 1.014 (1.001-1.035); Squamous Epithelial Cell,Urine <1 /hpf (0-4); Urobilinogen,Urine <2.0 mg/dL (<2.0); WBC,Urine 6 /hpf (0-5)
[2023-12-17] MEDS ORDERED: ONDANSETRON 4 MG/2 ML VIAL IVP PRN (06:05)
[2023-12-17] MEDS ORDERED: NALOXONE 0.4 MG/ML 1 ML VIAL IV PRN (06:05)
[2023-12-17] MEDS: AZITHROMYCIN 500 MG in SODIUM CHLORIDE 0.9% 250 ML IVPB STA (06:58)
[2023-12-17] MEDS: SODIUM CHLORIDE 0.9% 1,000 ML IV SCH (07:05)
[2023-12-17] MEDS: GLYCOPYRROLATE 1 MG TAB PO SCH (09:50)
[2023-12-17] MEDS: LISINOPRIL-HCTZ 20-25 MG 1 EACH TAB PO SCH (09:50)
[2023-12-17] MEDS: amLODIPine 5 MG TAB PO SCH (09:50)
[2023-12-17] MEDS: LEVOTHYROXINE 88 MCG TAB PO SCH (09:50)
--- NOTE | 2023-12-17 10:14 | P.CNPUL ---
History of Present Illness Consult date: 12/17/23 Requesting physician: James Betancur Reason for consult: dyspnea Chief complaint: Fever, weakness History of present illness: This is a 78-year-old male patient with a known history of hypertension, hypothyroidism, diabetes mellitus and previous throat cancer status post permanent tracheostomy tube placement. Proximally 1 week ago at [facility] he had undergone dilatation for esophageal stricture. Since that time he has not had a bowel movement and has had difficulty in urination. Yesterday he was having significant weakness and felt 2 times. He also was found to have a fever. Was brought in to the hospital here early this morning. White count 13.8. Hemoglobin 12.2. Sodium 130. Potassium 4.4. Bicarb 21. BUN 16. Creatinine 0.81. Glucose 223. Initial lactic acid 3.2, currently 1.5. AST 88. ALT 135. Urinalysis with trace protein 1+ glucose. 1+ ketones high WBCs and rare bacteria. Viral screen was negative. Chest x-ray revealed cardiomegaly but no acute cardiopulmonary process. He is seen today in consultation in the emergency department. He is currently sitting up on the stretcher. Awake and alert. Denies any worsening shortness of breath, cough or congestion. His main complaint was of a headache which seems to have improved. He has been initiated on ceftriaxone and azithromycin. Normal saline at 130 MLS per hour. He received 1500 mL of fluid resuscitation with normal saline. He received Tylenol for his fever and is currently afebrile. Hemodynamically stable. Maintaining O2 saturation in the 90s on room air. Review of Systems REVIEW OF SYSTEMS: CONSTITUTIONAL: Positive for generalized weakness, falls. Denies any recent significant weight loss or weight gain. EYES: Denies change in vision. EARS, NOSE, MOUTH, THROAT: Positive for headaches, denies sore throat. CARDIOVASCULAR: Denies chest pain, palpitations or syncopal episodes. RESPIRATORY: Denies shortness of breath, cough, congestion or hemoptysis. GASTROINTESTINAL: Positive for constipation, denies abdominal pain GENITOURINARY: Positive for urinary retention. MUSKULOSKELETAL: Denies pain, denies swelling. INTEGUMENTARY: Denies rash, denies eczema. NEUROLOGICAL: Denies recent memory loss, no recent seizure activity. PSYCHIATRIC: Denies anxiety, denies depression. HEMATOLOGIC/LYMPHATIC: Denies anemia, denies enlarged lymph nodes. Past Medical History Past Medical History: Cancer, Hypertension Additional Past Medical History / Comment(s): esophageal varices History of Any Multi-Drug Resistant Organisms: None Reported Additional Past Surgical History / Comment(s): Tracheostomy, dilation of esophageal varices. Past Anesthesia/Blood Transfusion Reactions: No Reported Reaction Past Psychological History: No Psychological Hx Reported Smoking Status: Former smoker - Past Family History Father Family Medical History: No Reported History, Unable to Obtain Medications and Allergies Home Medications Medication Instructions Recorded Confirmed Type Levothyroxine Sodium [Synthroid] 88 mcg PO DAILY 01/27/16 12/17/23 History amLODIPine [Norvasc] 5 mg PO DAILY 01/27/16 12/17/23 History Aspirin EC [Ecotrin Low Dose] 81 mg PO DAILY #30 tablet. 01/30/16 12/17/23 Rx Glycopyrrolate [Robinul] 2 mg PO TID 04/12/19 12/17/23 History Cholecalciferol [Vitamin D3 (25 25 mcg PO DAILY 12/17/23 12/17/23 History Mcg = 1000 Iu)] Cyclobenzaprine [Flexeril] 5 mg PO TID 12/17/23 12/17/23 History Hydrocodone/Acetaminophen 15 ml PO Q6H 12/17/23 12/17/23 History [Hydrocodone/Acetaminophen 7.5-325/15 ML] Ibuprofen [Motrin] 600 mg PO TID 12/17/23 12/17/23 History Lisinopril/Hydrochlorothiazide 1 tab PO DAILY 12/17/23 12/17/23 History [Zestoretic 20-25] Omeprazole [PriLOSEC] 40 mg PO DAILY 12/17/23 12/17/23 History Allergies Allergy/AdvReac Type Severity Reaction Status Date / Time No Known Allergies Allergy Verified 12/17/23 08:00 Physical Exam Vitals: Vital Signs Temp Pulse Resp BP Pulse Ox 12/17/23 09:50 98.4 F 92 16 127/82 92 L 12/17/23 06:40 98.1 F 12/17/23 05:00 98.7 F 95 26 H 111/72 90 L 12/17/23 03:00 102 H 24 124/70 92 L 12/17/23 02:04 122 H 20 154/91 94 L 12/17/23 01:23 101.6 F H 124 H 18 147/81 94 L Intake and Output 12/16/23 12/17/23 12/17/23 22:59 06:59 14:59 Output Total 300 200 Balance -300 -200 Output: Urine 300 200 Uretheral (Rizzo) 300 200 Other: Weight 63.503 kg GENERAL EXAM: Alert, pleasant, 78-year-old male, voicing responses, on room air, comfortable in no apparent distress. HEAD: Normocephalic. EYES: Normal reaction of pupils, equal size. NOSE: Clear with pink turbinates. THROAT: No erythema or exudates. NECK: No masses, no JVD. Tracheotomy in place. CHEST: No chest wall deformity. LUNGS: Equal air entry with no crackles, wheeze, rhonchi or dullness. CVS: S1 and S2 normal with no audible murmur, regular rhythm. ABDOMEN: No hepatosplenomegaly, normal bowel sounds, no guarding or rigidity. SPINE: No scoliosis or deformity SKIN: No rashes CENTRAL NERVOUS SYSTEM: No focal deficits, tone is normal in all 4 extremities. EXTREMITIES: There is no peripheral edema. No clubbing, no cyanosis. Peripheral pulses are intact. Results - Laboratory Findings CBC and BMP: 12/17/23 01:48 12/17/23 01:48 Abnormal lab findings: Abnormal Labs 12/17/23 12/17/23 12/17/23 01:48 01:48 01:48 WBC 13.8 H RBC 4.07 L Hgb 12.2 L Hct 35.5 L Neutrophils # 12.6 H Lymphocytes # 0.2 L Sodium 130 L Chloride 96 L Carbon Dioxide 21 L Glucose 223 H Plasma Lactic Acid Uche AST 88 H ALT 135 H Urine Protein Trace H Urine Glucose (UA) 1+ H Urine Ketones 1+ H Urine Blood Trace H Urine WBC 6 H Urine Bacteria Rare H Hyaline Casts 13 H Urine Mucus Rare H 12/17/23 01:48 WBC RBC Hgb Hct Neutrophils # Lymphocytes # Sodium Chloride Carbon Dioxide Glucose Plasma Lactic Acid Uche 3.2 H* AST ALT Urine Protein Urine Glucose (UA) Urine Ketones Urine Blood Urine WBC Urine Bacteria Hyaline Casts Urine Mucus - Diagnostic Findings Chest x-ray: image reviewed Assessment and Plan Assessment: Generalized weakness and falls of unclear etiology Febrile illness of unclear etiology, possible urinary tract infection Constipation Recent esophageal dilatation at [facility] 1 week ago History of throat cancer, remains with tracheotomy History of hypothyroidism Hypertension Diabetes mellitus Former smoker, mainly cigars Plan: The patient was seen and evaluated Chest x-ray, labs and medications reviewed Chest x-ray reveals no acute pulmonary process Stable and on room air Currently on ceftriaxone and azithromycin Check a procalcitonin Continue fluid resuscitation We will continue to follow and make further recommendations based on his clinical status I have personally seen and examined the patient, performed the documentation and the assessment and plan as written. Number of minutes spent on the visit: 20.
[2023-12-17] MEDS: PANTOPRAZOLE 40 MG/10 ML VIAL IVP SCH (13:43)
[2023-12-17 15:20] LABS: Glucose,Whole Blood 189 mg/dL (70-110)
[2023-12-17 15:34] LABS: Glucose,Whole Blood 184 mg/dL (70-110)
[2023-12-17 15:58] LABS: ABG Base Excess -0.4 mmol/L; ABG HCO3 23 mmol/L (21-25); ABG PCO2 31 mmHg (35-45); ABG PH 7.48 (7.35-7.45); ABG PO2 67 mmHg (83-108); ABG TCO2 24 mmol/L (19-24); Allen Test Performed? Yes
[2023-12-17] MEDS: polyethylene glycoL 3350 17 GM POWD.PACK PO SCH (16:34)
[2023-12-17] MEDS: PIPERACILLIN-TAZOBACTAM 3.375 GM in SODIUM CHLORIDE 0.9% 100 ML IVPB SCH (17:05)
[2023-12-17] MEDS: ACETAMINOPHEN IV (For NPO) 1,000 MG in EMPTY BAG 1 BAG IVPB PRN (17:57)
[2023-12-17] MEDS ORDERED: VANCOMYCIN IV PER PHARMACY 1 EACH MISC MISCELLANE PRN (18:12)
[2023-12-17] MEDS: FUROSEMIDE 10 MG/ML 4 ML VIAL IV STA (18:30)
[2023-12-17] MEDS: VANCOMYCIN 1,250 MG in SODIUM CHLORIDE 0.9% 250 ML IVPB SCH (19:00)
[2023-12-17 20:08] LABS: Glucose,Whole Blood 173 mg/dL (70-110)
[2023-12-17] MEDS: DILTIAZEM DRIP BOLUS FROM BAG 1 MG SOLN IV ONE (20:13)
[2023-12-17] MEDS: DILTIAZEM 125 MG in SODIUM CHLORIDE 0.9% 100 ML IV SCH (20:18)
[2023-12-17 20:33] LABS: ABG Base Excess -0.6 mmol/L; ABG HCO3 23 mmol/L (21-25); ABG PCO2 29 mmHg (35-45); ABG TCO2 24 mmol/L (19-24); Allen Test Performed? Yes
--- NOTE | 2023-12-17 20:35 | P.HPIM ---
History of Present Illness H&P Date: 12/17/23 Chief Complaint: fever, weakness Noé Lima is a 78 year old male with PMH of hypertension, hypothyroidism, diabetes mellitus and previous throat cancer s/p radiation and permanent tracheostomy. Approximately 1 week ago at [facility] he underwent EGD with dilation for his longstanding esophageal stricture. He has been constipated since this procedure and had been having difficulty urinating, but denies any fevers or respiratory issues earlier in the week. Pt's reports yesterday she noticed he fell two times and hit his head and was noted with fever at home so was brought in to the hospital. On presentation WBC 13.8 Hemoglobin 12.2, Na 130 K 4.4. BUN 16. Creatinine 0.81. Glucose 223. Initial lactic acid 3.2, currently 1.5. LFTs are unremarkable. Urinalysis with trace protein 1+ glucose. 1+ ketones high WBCs and rare bacteria. Viral screen was negative. Chest x-ray revealed cardiomegaly, no acute cardiopulmonary process. Pt currently denies chest pain, shortness of breath. Pt with increasing O2 requirements subsequently today, with 40% FiO2 via trach collar in addition to tachycardia. Review of Systems All systems: negative Constitutional: Reports fever, Reports lethargy, Reports malaise, Denies chills Eyes: denies blurred vision, denies pain Ears, nose, mouth and throat: Denies headache, Denies sore throat Cardiovascular: Denies chest pain, Denies shortness of breath Respiratory: Denies cough Gastrointestinal: Denies abdominal pain, Denies diarrhea, Denies nausea, Denies vomiting Musculoskeletal: Denies myalgias Integumentary: Denies pruritus, Denies rash Neurological: Denies numbness, Denies weakness Psychiatric: Denies anxiety, Denies depression Endocrine: Denies fatigue, Denies weight change Past Medical History Past Medical History: Cancer, Hypertension Additional Past Medical History / Comment(s): esophageal varices History of Any Multi-Drug Resistant Organisms: None Reported Additional Past Surgical History / Comment(s): Tracheostomy, dilation of esophageal varices. Past Anesthesia/Blood Transfusion Reactions: No Reported Reaction Past Psychological History: No Psychological Hx Reported Smoking Status: Former smoker - Past Family History Father Family Medical History: No Reported History, Unable to Obtain Medications and Allergies Home Medications Medication Instructions Recorded Confirmed Type Levothyroxine Sodium [Synthroid] 88 mcg PO DAILY 01/27/16 12/17/23 History amLODIPine [Norvasc] 5 mg PO DAILY 01/27/16 12/17/23 History Aspirin EC [Ecotrin Low Dose] 81 mg PO DAILY #30 tablet. 01/30/16 12/17/23 Rx Glycopyrrolate [Robinul] 2 mg PO TID 04/12/19 12/17/23 History Cholecalciferol [Vitamin D3 (25 25 mcg PO DAILY 12/17/23 12/17/23 History Mcg = 1000 Iu)] Cyclobenzaprine [Flexeril] 5 mg PO TID 12/17/23 12/17/23 History Hydrocodone/Acetaminophen 15 ml PO Q6H 12/17/23 12/17/23 History [Hydrocodone/Acetaminophen 7.5-325/15 ML] Ibuprofen [Motrin] 600 mg PO TID 12/17/23 12/17/23 History Lisinopril/Hydrochlorothiazide 1 tab PO DAILY 12/17/23 12/17/23 History [Zestoretic 20-25] Omeprazole [PriLOSEC] 40 mg PO DAILY 12/17/23 12/17/23 History Allergies Allergy/AdvReac Type Severity Reaction Status Date / Time No Known Allergies Allergy Verified 12/17/23 08:00 Physical Exam Vitals: Vital Signs Temp Pulse Pulse Resp BP BP Pulse Ox 12/17/23 20:04 111 H 97/65 10 L 12/17/23 19:25 99.2 F 32 L 28 H 111/77 91 L 12/17/23 18:45 98.4 F 91 L 12/17/23 17:48 100.3 F H 114 H 27 H 161/102 91 L 12/17/23 17:13 100.7 F H 123 H 34 H 12/17/23 15:10 12/17/23 14:48 100.5 F H 122 H 32 H 168/97 80 L 12/17/23 14:09 101.6 F H 95 26 H 166/95 92 L 12/17/23 12:42 98.4 F 12/17/23 09:50 98.4 F 92 16 127/82 92 L 12/17/23 06:40 98.1 F 12/17/23 05:00 98.7 F 95 26 H 111/72 90 L 12/17/23 03:00 102 H 24 124/70 92 L 12/17/23 02:04 122 H 20 154/91 94 L 12/17/23 01:23 101.6 F H 124 H 18 147/81 94 L FiO2 12/17/23 20:04 40 12/17/23 19:25 40 12/17/23 18:45 12/17/23 17:48 12/17/23 17:13 12/17/23 15:10 40 12/17/23 14:48 12/17/23 14:09 12/17/23 12:42 12/17/23 09:50 12/17/23 06:40 12/17/23 05:00 12/17/23 03:00 12/17/23 02:04 12/17/23 01:23 Intake and Output 12/17/23 12/17/23 12/17/23 06:59 14:59 22:59 Output Total 300 200 Balance -300 -200 Output: Urine 300 200 Uretheral (Rizzo) 300 200 Other: Voiding Method Indwelling Catheter Weight 63.503 kg Gen: well developed, well nourished male in mild distress. On RA HEENT: Trach collar in place. No JVD CV: RRR, no murmur Lungs: Normal effort, wheezing noted. No rales Abd: soft, nontender Ext: pulses 2+, no cynanosis, clubbing or edema Skin: warm and dry neuro: AAOx3, no focal deficit Results CBC & Chem 7: 12/17/23 01:48 12/17/23 01:48 Labs: Abnormal Lab Results - Last 24 Hours (Table) 12/17/23 12/17/23 12/17/23 Range/Units 01:48 01:48 01:48 WBC 13.8 H (3.8-10.6) k/uL RBC 4.07 L (4.30-5.90) m/uL Hgb 12.2 L (13.0-17.5) gm/dL Hct 35.5 L (39.0-53.0) % Neutrophils # 12.6 H (1.3-7.7) k/uL Lymphocytes # 0.2 L (1.0-4.8) k/uL ABG pH (7.35-7.45) ABG pCO2 (35-45) mmHg ABG pO2 (83-108) mmHg Sodium 130 L (137-145) mmol/L Chloride 96 L (98-107) mmol/L Carbon Dioxide 21 L (22-30) mmol/L Glucose 223 H (74-99) mg/dL POC Glucose (mg/dL) (70-110) mg/dL Plasma Lactic Acid Uche (0.7-2.0) mmol/L AST 88 H (17-59) U/L ALT 135 H (4-49) U/L Procalcitonin (0.02-0.09) ng/mL Urine Protein Trace H (Negative) Urine Glucose (UA) 1+ H (Negative) Urine Ketones 1+ H (Negative) Urine Blood Trace H (Negative) Urine WBC 6 H (0-5) /hpf Urine Bacteria Rare H (None) /hpf Hyaline Casts 13 H (0-2) /lpf Urine Mucus Rare H (None) /hpf 12/17/23 12/17/23 12/17/23 Range/Units 01:48 09:33 15:18 WBC (3.8-10.6) k/uL RBC (4.30-5.90) m/uL Hgb (13.0-17.5) gm/dL Hct (39.0-53.0) % Neutrophils # (1.3-7.7) k/uL Lymphocytes # (1.0-4.8) k/uL ABG pH (7.35-7.45) ABG pCO2 (35-45) mmHg ABG pO2 (83-108) mmHg Sodium (137-145) mmol/L Chloride (98-107) mmol/L Carbon Dioxide (22-30) mmol/L Glucose (74-99) mg/dL POC Glucose (mg/dL) 189 H (70-110) mg/dL Plasma Lactic Acid Uche 3.2 H* (0.7-2.0) mmol/L AST (17-59) U/L ALT (4-49) U/L Procalcitonin 0.43 H (0.02-0.09) ng/mL Urine Protein (Negative) Urine Glucose (UA) (Negative) Urine Ketones (Negative) Urine Blood (Negative) Urine WBC (0-5) /hpf Urine Bacteria (None) /hpf Hyaline Casts (0-2) /lpf Urine Mucus (None) /hpf 12/17/23 12/17/23 12/17/23 Range/Units 15:31 15:51 20:07 WBC (3.8-10.6) k/uL RBC (4.30-5.90) m/uL Hgb (13.0-17.5) gm/dL Hct (39.0-53.0) % Neutrophils # (1.3-7.7) k/uL Lymphocytes # (1.0-4.8) k/uL ABG pH 7.48 H (7.35-7.45) ABG pCO2 31 L (35-45) mmHg ABG pO2 67 L (83-108) mmHg Sodium (137-145) mmol/L Chloride (98-107) mmol/L Carbon Dioxide (22-30) mmol/L Glucose (74-99) mg/dL POC Glucose (mg/dL) 184 H 173 H (70-110) mg/dL Plasma Lactic Acid Uche (0.7-2.0) mmol/L AST (17-59) U/L ALT (4-49) U/L Procalcitonin (0.02-0.09) ng/mL Urine Protein (Negative) Urine Glucose (UA) (Negative) Urine Ketones (Negative) Urine Blood (Negative) Urine WBC (0-5) /hpf Urine Bacteria (None) /hpf Hyaline Casts (0-2) /lpf Urine Mucus (None) /hpf Assessment and Plan Plan: Severe sepsis, unknown source. Fever, tachycardia, elevated procalcitonin. Continue zosyn, add vancomycin. ID consultation. Obtain CT chest/abd/pelvis Constipation, consider fecal impaction. Miralax PO, consider enema Acute hypoxic respiratory failure, secondary to sepsis. Pulmonology consulted, continue glycopyrrolate for secretions History of throat cancer History of recent esophageal dilation T2DM. Accucheck and sliding scale insulin
[2023-12-17 20:36] LABS: ABG PO2 57 mmHg (83-108)
--- NOTE | 2023-12-17 20:36 | P.CONS ---
History of Present Illness - Reason for Consult Consult date: 12/17/23 - History of Present Illness Patient is a 78-year-old male with a past medical history significant for hypertension hypothyroidism, diabetes mellitus did have a history of throat cancer status post pulmonary tracheostomy tube placement, patient apparently a week ago underwent a dilatation of his esophageal stricture with the patient was having difficulty swallowing and the patient did went for 1 week follow-up visit and apparently patient was doing well patient has been brought to the hospital by EMS after the patient did have a fall at home and was unable to get him up this was the second fall within a few hours initial almost from the bed and she was able to help him back to the chair next time he fell in the kitchen and was very weak patient was felt to be warm patient was brought into the hospital on arrival to the ER the patient did have a fever of 101.6 F patient was tachycardic but not hypotensive mildly hypoxic currently on a trach collar patient did have a white count of 13.8 with a left shift creatinine was normal liver isms mildly elevated urine was not significantly positive tested negative for influenza RSV and COVID patient did have a chest x-ray cardiomegaly without acute pulmonary process patient was started on Rocephin and Zithromax infectious disease was consulted for further management of antibiotic therapy patient the time my evaluation is awake but nonverbal history provided mostly by the at the bedside who mention those 2 falls the patient noted to be warm patient did have a congested cough and wheezy but not bring up any sputum no clear history of nausea vomiting choking the food abdominal pain or diarrhea hide the patient is constipated and did not had a bowel movement for the last few days patient also noticed to be in urinary retention requiring Rizzo catheter placement however he is not significantly positive Past Medical History Past Medical History: Cancer, Hypertension Additional Past Medical History / Comment(s): esophageal varices History of Any Multi-Drug Resistant Organisms: None Reported Additional Past Surgical History / Comment(s): Tracheostomy, dilation of esophageal varices. Past Anesthesia/Blood Transfusion Reactions: No Reported Reaction Past Psychological History: No Psychological Hx Reported Smoking Status: Former smoker - Past Family History Father Family Medical History: No Reported History, Unable to Obtain Medications and Allergies Home Medications Medication Instructions Recorded Confirmed Type Levothyroxine Sodium [Synthroid] 88 mcg PO DAILY 01/27/16 12/17/23 History amLODIPine [Norvasc] 5 mg PO DAILY 01/27/16 12/17/23 History Aspirin EC [Ecotrin Low Dose] 81 mg PO DAILY #30 tablet. 01/30/16 12/17/23 Rx Glycopyrrolate [Robinul] 2 mg PO TID 04/12/19 12/17/23 History Cholecalciferol [Vitamin D3 (25 25 mcg PO DAILY 12/17/23 12/17/23 History Mcg = 1000 Iu)] Cyclobenzaprine [Flexeril] 5 mg PO TID 12/17/23 12/17/23 History Hydrocodone/Acetaminophen 15 ml PO Q6H 12/17/23 12/17/23 History [Hydrocodone/Acetaminophen 7.5-325/15 ML] Ibuprofen [Motrin] 600 mg PO TID 12/17/23 12/17/23 History Lisinopril/Hydrochlorothiazide 1 tab PO DAILY 12/17/23 12/17/23 History [Zestoretic 20-25] Omeprazole [PriLOSEC] 40 mg PO DAILY 12/17/23 12/17/23 History Allergies Allergy/AdvReac Type Severity Reaction Status Date / Time No Known Allergies Allergy Verified 12/17/23 08:00 Physical Exam Vitals: Vital Signs Temp Pulse Resp BP Pulse Ox 12/17/23 09:50 98.4 F 92 16 127/82 92 L 12/17/23 06:40 98.1 F 12/17/23 05:00 98.7 F 95 26 H 111/72 90 L 12/17/23 03:00 102 H 24 124/70 92 L 12/17/23 02:04 122 H 20 154/91 94 L 12/17/23 01:23 101.6 F H 124 H 18 147/81 94 L Intake and Output 12/16/23 12/17/23 12/17/23 22:59 06:59 14:59 Output Total 300 200 Balance -300 -200 Output: Urine 300 200 Uretheral (Rizzo) 300 200 Other: Weight 63.503 kg Results CBC & Chem 7: 12/18/23 06:24 12/18/23 06:24 Labs: Abnormal Lab Results - Last 24 Hours (Table) 12/17/23 12/17/23 12/17/23 Range/Units 01:48 01:48 01:48 WBC 13.8 H (3.8-10.6) k/uL RBC 4.07 L (4.30-5.90) m/uL Hgb 12.2 L (13.0-17.5) gm/dL Hct 35.5 L (39.0-53.0) % Neutrophils # 12.6 H (1.3-7.7) k/uL Lymphocytes # 0.2 L (1.0-4.8) k/uL Sodium 130 L (137-145) mmol/L Chloride 96 L (98-107) mmol/L Carbon Dioxide 21 L (22-30) mmol/L Glucose 223 H (74-99) mg/dL Plasma Lactic Acid Uche (0.7-2.0) mmol/L AST 88 H (17-59) U/L ALT 135 H (4-49) U/L Urine Protein Trace H (Negative) Urine Glucose (UA) 1+ H (Negative) Urine Ketones 1+ H (Negative) Urine Blood Trace H (Negative) Urine WBC 6 H (0-5) /hpf Urine Bacteria Rare H (None) /hpf Hyaline Casts 13 H (0-2) /lpf Urine Mucus Rare H (None) /hpf 12/17/23 Range/Units 01:48 WBC (3.8-10.6) k/uL RBC (4.30-5.90) m/uL Hgb (13.0-17.5) gm/dL Hct (39.0-53.0) % Neutrophils # (1.3-7.7) k/uL Lymphocytes # (1.0-4.8) k/uL Sodium (137-145) mmol/L Chloride (98-107) mmol/L Carbon Dioxide (22-30) mmol/L Glucose (74-99) mg/dL Plasma Lactic Acid Uche 3.2 H* (0.7-2.0) mmol/L AST (17-59) U/L ALT (4-49) U/L Urine Protein (Negative) Urine Glucose (UA) (Negative) Urine Ketones (Negative) Urine Blood (Negative) Urine WBC (0-5) /hpf Urine Bacteria (None) /hpf Hyaline Casts (0-2) /lpf Urine Mucus (None) /hpf Assessment and Plan Plan: 1patient presented to hospital with sepsis in this patient who did have a fever tachycardia elevated white count source is likely pneumonia concerning for possible aspiration pneumonitis in this patient recently did esophageal dilatation for stricture the initial chest x-ray reported no significant normality patient abdominal was soft on examination and urine was not significantly positive 2- will discontinue Rocephin and Zithromax 3-start the patient on Zosyn 3.37 g. Every 8 hour 4-We will check inflammatory markers and try to obtain a sputum We will follow on clinical condition and cultures to further adjust medication if needed Thank you for this consultation we will follow the patient along with you Dictation was produced using [employer] dictation software. please excuse any grammatical, word or spelling errors. Time with Patient: Greater than 30
[2023-12-17 21:15] LABS: Glucose,Whole Blood 204 mg/dL (70-110)
--- NOTE | 2023-12-17 21:22 | XR ---
EXAM: XR chest 1V portable CLINICAL INDICATION:Male, 78 years old with history of Resp distress; [facility] COMPARISON: Earlier today 2:09 AM and before TECHNIQUE: Chest single view. FINDINGS: Assessment is limited by patient rotation. Lines/tubes/devices: EKG leads and other extrinsic structures overlie the chest. Cardiomediastinum: Cardiac silhouette appears mildly enlarged. Mediastinum is accentuated by the degree of rotation, otherwise appears stable. Vasculature: Increased pulmonary vascular congestion. Lungs/pleura: Increased interstitial opacities and patchy airspace opacities in the bilateral lungs, with relative sparing of the left upper lobe. There is increased blunting of the costophrenic angles. No evidence o f pneumothorax. Bones/soft tissues: Bony thorax appears grossly intact as seen. Degenerative changes of the spine and shoulders. IMPRESSION: 1. Cardiomegaly. 2. Increased pulmonary vascular congestion, bilateral interstitial and airspace opacities, and enlar ging small bilateral pleural effusions, most likely related to CHF. Correlate clinically and follow-u p to exclude superimposed pneumonia.
--- NOTE | 2023-12-17 21:38 | CT ---
EXAMINATION TYPE: CT brain wo con CT DLP: 1177.4 mGycm, Automated exposure control for dose reduction was used. DATE OF EXAM: 12/17/2023 9:09 PM COMPARISON: None. CLINICAL INDICATION:Male, 78 years old with history of AMS, AMS, sepsis, hx stroke TECHNIQUE: Brain: Axial CT images of the brain were obtained with coronal and sagittal reformats created and rev iewed. Contrast used: None. Oral contrast used: None. FINDINGS: Moderate to large area of encephalomalacia on the right in the MCA territory involving the frontopari etal and temporal lobes, consistent with remote infarct/insult. There is mild/moderate generalized br ain atrophy and mild to moderate chronic microvascular ischemic white matter changes. No acute intracranial hemorrhage, CT signs of acute infarct, midline shift, or mass effect. No extra- axial fluid collections. Visualized osseous structures appear intact. There is a moderate sized air-fluid level in the left ma xillary sinus. IMPRESSION: 1. No CT evidence of an acute intracranial abnormality. 2. Atrophy and chronic microvascular ischemic white matter changes. 3. Remote right MCA territory infarct. 4. Air-fluid level in left maxillary sinus, correlate for acute on chronic sinus disease.
--- NOTE | 2023-12-17 22:15 | CT ---
EXAMINATION TYPE: CT chest abdomen wo con CT DLP: 805.9 mGycm, Automated exposure control for dose reduction was used. DATE OF EXAM: 12/17/2023 9:09 PM COMPARISON: Chest x-rays earlier today CLINICAL INDICATION:Male, 78 years old with history of sepsis; PHH, sepsis TECHNIQUE: Multiple axial images of the chest, abdomen, and pelvis were obtained without contrast. Tw o-dimensional coronal and sagittal reconstructions were obtained. Contrast used: mL of , Oral contrast used: without Oral Contrast FINDINGS: Examinations limited without contrast. CHEST: LUNGS/ PLEURA: Small to moderate bilateral pleural effusions with adjacent compressive atelectasis. A dditional patchy airspace opacities throughout the aerated lungs are also present. There is mild diff use interstitial line thickening. No evidence of pneumothorax. AIRWAY: A tracheostomy tube is present within the trachea the lower neck. Distal to this, there is he terogeneous material likely mucous secretions seen throughout the trachea. The main stem bronchi are clear. Bronchi distally taper into areas of consolidated lung bilaterally. No visualized pneumothorax . LOWER NECK: Thyroid not clearly seen. A few vascular calcifications.. MEDIASTINUM: No gross evidence of adenopathy. HEART: Mild cardiomegaly. Mild to moderate coronary artery calcification and/or stents. No appreciabl e pericardial effusion. Prominent pericardial fat. VASCULATURE: Mild atherosclerotic calcifications of the aorta and branches. Ascending aorta is about 3.3 CM, descending is about 2.8 CM. Pulmonary trunk measures about 2.9 CM. Vessels otherwise not fur ther assessed without contrast. SOFT TISSUES/LYMPH NODES: Mild bilateral gynecomastia-like changes. No evidence of axillary adenopath y. MUSCULOSKELETAL: Mild to moderate diffuse osseous degenerative changes. No acute abnormality. OTHER: Tiny bubbles of gas in the left chest subclavian region, could be due to venous access attempt . No other significant finding. ABDOMEN: ABDOMEN LIVER: Appears enlarged measuring 18.6 cm in the mid axillary plane. Small calcified granuloma on the left, otherwise unremarkable. GALLBLADDER AND BILE DUCTS: Small gallstone is seen. No secondary signs of acute cholecystitis. PANCREAS: No acute abnormality. A couple of small gas-filled structures near the pancreatic head, are judged likely related to duodenal diverticula. SPLEEN: Unremarkable. ADRENAL GLANDS: Mild thickening and nodularity, can be seen with hyperplasia and/or adenomatoid will es.. KIDNEYS AND URETERS: Some limitation by motion. There is perinephric stranding bilaterally. An approx imately 4.9 mm calculus is seen in the left upper pole and on multiplanar assessment it seems another similar sized calcification is present inferiorly. Punctate calculi are also suggested in the lower pole of the left kidney. GI TRACT: Stomach and small bowel are nondistended, there is no evidence of obstruction. What seems t o be the appendix appears within normal limits. Moderate colonic stool burden without focal acute abn ormality seen. PERITONEUM/RETROPERITONEUM: No evidence of pneumoperitoneum or free fluid. VASCULATURE: Moderate atherosclerotic calcifications are present throughout the abdominal aorta and i ts branches. MUSCULOSKELETAL: Moderate degenerative changes of the SI joints and throughout the lumbar spine. No a cute fracture is seen. LYMPH NODES: No evidence of enlarged nodes by CT. SOFT TISSUES/ABDOMINAL WALL: Unremarkable OTHER: No other significant finding. IMPRESSION: 1. Nonobstructing left intrarenal calculi. 2. Mild hepatomegaly. 3. Cholelithiasis. 4. Tracheostomy tube in place. Heterogeneous material within the trachea distally may represent muco us secretions, with aspiration also considered. 5. Mild cardiomegaly, with lung findings suggesting moderate CHF as described. Superimposed infectio n could be present, correlate and follow-up clinically.
[2023-12-17] MEDS: HEPARIN SODIUM 1,000 UN/ML (10ML VL) IV ONE (22:35)
[2023-12-17] MEDS: HEPARIN SOD,PORK IN 0.45% NACL 25,000 UNIT in 0.45% NACL 1 250ML.BAG IV SCH (22:36)
[2023-12-17] MEDS: METOPROLOL TARTRATE 5 MG/5 ML VIAL IVP PRN (23:30)
[2023-12-18 01:05] LABS: INR 1.2 (<1.2); Partial Thromboplastin Time 41.5 sec (22.0-30.0); Prothrombin Time 13.1 sec (10.0-12.5)
[2023-12-18 01:08] LABS: Basophils # (A) 0.1 k/uL (0-0.2); Basophils % (A) 0 %; Eosinophils # (A) 0.1 k/uL (0-0.7); Eosinophils % (A) 1 %; HGB 13.5 gm/dL (13.0-17.5); Lymphocytes # (A) 0.6 k/uL (1.0-4.8); Lymphocytes % (A) 2 %; MCH 28.7 pg (25.0-35.0); MCHC 32.2 g/dL (31.0-37.0); MCV 89.4 fL (80.0-100.0); Mean Platelet Volume 8.3; Monocytes # (A) 1.2 k/uL (0-1.0); Monocytes % (A) 5 %; Neutrophils # (A) 24.4 k/uL (1.3-7.7); Neutrophils % (A) 92 %; Platelet Count 425 k/uL (150-450); WBC 26.6 k/uL (3.8-10.6)
[2023-12-18] MEDS: HEPARIN SODIUM 1,000 UN/ML (10ML VL) IV PRN (01:44)
[2023-12-18] MEDS ORDERED: AZITHROMYCIN 500 MG in SODIUM CHLORIDE 0.9% 250 ML IVPB SCH (06:00)
[2023-12-18 06:48] LABS: Basophils % (A) 0 %; Eosinophils # (A) 0.2 k/uL (0-0.7); Eosinophils % (A) 1 %; HCT 38.5 % (39.0-53.0); HGB 12.5 gm/dL (13.0-17.5); Lymphocytes # (A) 0.3 k/uL (1.0-4.8); Lymphocytes % (A) 1 %; MCH 28.5 pg (25.0-35.0); MCHC 32.6 g/dL (31.0-37.0); MCV 87.6 fL (80.0-100.0); Monocytes # (A) 0.9 k/uL (0-1.0); Monocytes % (A) 4 %; Neutrophils # (A) 23.7 k/uL (1.3-7.7); Neutrophils % (A) 94 %; Platelet Count 391 k/uL (150-450); RBC 4.39 m/uL (4.30-5.90); WBC 25.3 k/uL (3.8-10.6)
[2023-12-18 07:00] LABS: ALT 87 U/L (4-49); AST 52 U/L (17-59); African American GFR (CKD) >90 (>60 ml/min/1.73 sqM); Albumin 2.9 g/dL (3.5-5.0); Alkaline Phosphatase 129 U/L (38-126); Anion Gap 7 mmol/L; Blood Urea Nitrogen 19 mg/dL (9-20); Calcium 8.3 mg/dL (8.4-10.2); Carbon Dioxide 21 mmol/L (22-30); Chloride 105 mmol/L (98-107); Glucose 173 mg/dL (74-99); Non-African American GFR(CKD) 83 (>60 ml/min/1.73 sqM); Phosphorus 3.2 mg/dL (2.5-4.5); Potassium 3.3 mmol/L (3.5-5.1); Sodium 133 mmol/L (137-145); Total Protein 5.8 g/dL (6.3-8.2)
[2023-12-18 07:03] LABS: INR 1.1 (<1.2); Partial Thromboplastin Time 31.7 sec (22.0-30.0); Prothrombin Time 11.8 sec (10.0-12.5)
[2023-12-18 08:18] LABS: C Reactive Protein 35.4 mg/dL (<1.0)
--- NOTE | 2023-12-18 09:25 | P.CRDCN ---
History of Present Illness Consult date: 12/18/23 History of present illness: History of Present Illness: The patient is a 78-year-old male status post tracheostomy with a history of hypertension, diabetes, prior throat malignancy who underwent esophageal stricture dilatation recently and presented to the hospital with symptoms of progressive fatigue having problem with his bowel movement. Yesterday he went in atrial fibrillation with rapid ventricle response, became less responsive and was transferred to the ICU. He continues to be in atrial fibrillation with controlled ventricular response at this time. His chest x-ray is suggestive of aspiration pneumonia. According to the note he was awake and alert on presentation, is quite somnolent not answering questions at this time. Reviewing his records he has a prior history of hypertension and diabetes. His procalcitonin is elevated and he has significant leukocytosis. He had an echocardiogram in 2016 that showed a preserved systolic function with mild mitral and tricuspid regurgitation. He has a history of hypertension, he is nondiabetic Medications: Norvasc 5 mg daily, lisinopril HCT 20-25 mg daily, aspirin once a day, Synthroid, Prilosec, Flexeril Review of Systems: Could not be obtained, the patient is somnolent Physical Examination: 78-year-old male somnolent not answering questions trach collar noted,Blood pressure 104/70, Heart rate 104 Head: [Normocephalic.] Eyes: [Sclerae nonicteric.] Neck: [Good carotid upstroke, no bruit, no jugular venous distention. Tracheostomy noted] Lungs: Bilateral rhonchi Heart: [Irregular rate and rhythm, S1-S2, no S3, no rub. Systolic ejection murmur.] Abdomen: [Soft nontender, positive bowel sounds no organomegaly.] Extremities: [No edema, intact distal pulses.] Labs: WBC 25.3, hemoglobin 12.5, potassium 3.3, BUN 19, creatinine 1.9, chest x-ray reveals bilateral infiltrate EKG: Atrial fibrillation with nonspecific ST-T wave changes Impression: 1. Respiratory failure with evidence of possible aspiration pneumonia and sepsis 2. Atrial fibrillation with rapid ventricular response 3. History of throat malignancy and permanent tracheostomy 4. Post recent esophageal dilatation 5. History of hypertension 6. Change in mental status most likely related to his sepsis Plan: 1. Continue IV Cardizem and IV heparin for now 2. Obtain an echocardiogram with Doppler 3. Treatment of pneumonia per pulmonary service and infectious disease 4. Depending on his progress further recommendations will be made 5. Prognosis is guarded 6. Thank you for this consult we will follow with. Past Medical History Past Medical History: Cancer, Hypertension Additional Past Medical History / Comment(s): esophageal varices History of Any Multi-Drug Resistant Organisms: None Reported Additional Past Surgical History / Comment(s): Tracheostomy, dilation of esophageal varices. Past Anesthesia/Blood Transfusion Reactions: No Reported Reaction Past Psychological History: No Psychological Hx Reported Smoking Status: Former smoker - Past Family History Father Family Medical History: No Reported History, Unable to Obtain Medications and Allergies Home Medications Medication Instructions Recorded Confirmed Type Levothyroxine Sodium [Synthroid] 88 mcg PO DAILY 01/27/16 12/17/23 History amLODIPine [Norvasc] 5 mg PO DAILY 01/27/16 12/17/23 History Aspirin EC [Ecotrin Low Dose] 81 mg PO DAILY #30 tablet. 01/30/16 12/17/23 Rx Glycopyrrolate [Robinul] 2 mg PO TID 04/12/19 12/17/23 History Cholecalciferol [Vitamin D3 (25 25 mcg PO DAILY 12/17/23 12/17/23 History Mcg = 1000 Iu)] Cyclobenzaprine [Flexeril] 5 mg PO TID 12/17/23 12/17/23 History Hydrocodone/Acetaminophen 15 ml PO Q6H 12/17/23 12/17/23 History [Hydrocodone/Acetaminophen 7.5-325/15 ML] Ibuprofen [Motrin] 600 mg PO TID 12/17/23 12/17/23 History Lisinopril/Hydrochlorothiazide 1 tab PO DAILY 12/17/23 12/17/23 History [Zestoretic 20-25] Omeprazole [PriLOSEC] 40 mg PO DAILY 12/17/23 12/17/23 History Allergies Allergy/AdvReac Type Severity Reaction Status Date / Time No Known Allergies Allergy Verified 12/17/23 08:00 Physical Exam Vitals: Vital Signs Temp Pulse Pulse Resp BP BP Pulse Ox 12/18/23 07:38 92 L 12/18/23 07:00 104 H 28 H 104/77 92 L 12/18/23 06:50 112 H 23 104/77 91 L 12/18/23 06:40 71 37 H 104/77 92 L 12/18/23 06:30 108 H 32 H 104/73 92 L 12/18/23 06:20 110 H 32 H 104/73 93 L 12/18/23 06:10 122 H 32 H 104/73 92 L 12/18/23 06:00 99.2 F 113 H 30 H 129/99 92 L 12/18/23 05:50 122 H 34 H 129/99 92 L 12/18/23 05:40 121 H 34 H 129/99 91 L 12/18/23 05:30 134 H 33 H 118/78 92 L 12/18/23 05:20 117 H 32 H 118/78 92 L 12/18/23 05:10 121 H 33 H 118/78 92 L 12/18/23 05:00 118 H 28 H 116/83 91 L 12/18/23 04:50 124 H 22 116/83 92 L 12/18/23 04:40 117 H 31 H 116/83 91 L 12/18/23 04:30 138 H 32 H 105/95 92 L 12/18/23 04:20 122 H 32 H 105/95 92 L 12/18/23 04:10 115 H 24 105/95 91 L 12/18/23 04:00 99.9 F H 109 H 33 H 123/89 92 L 12/18/23 03:50 121 H 33 H 123/89 92 L 12/18/23 03:40 123 H 35 H 123/89 92 L 12/18/23 03:30 122 H 31 H 125/87 93 L 12/18/23 03:20 125 H 32 H 125/87 93 L 12/18/23 03:10 151 H 31 H 125/87 94 L 12/18/23 03:00 129 H 33 H 116/83 93 L 12/18/23 02:50 125 H 31 H 116/83 91 L 12/18/23 02:40 121 H 31 H 116/83 92 L 12/18/23 02:30 137 H 31 H 121/84 91 L 12/18/23 02:20 140 H 32 H 121/84 91 L 12/18/23 02:10 131 H 25 H 121/84 91 L 12/18/23 02:00 129 H 32 H 121/97 92 L 12/18/23 01:50 147 H 32 H 121/97 92 L 12/18/23 01:40 128 H 34 H 121/97 91 L 12/18/23 01:30 137 H 34 H 137/97 92 L 12/18/23 01:20 141 H 33 H 137/97 93 L 12/18/23 01:10 120 H 32 H 137/97 93 L 12/18/23 01:00 135 H 31 H 124/100 93 L 12/18/23 00:50 134 H 31 H 124/100 92 L 12/18/23 00:40 109 H 30 H 124/100 92 L 12/18/23 00:30 123 H 31 H 105/83 92 L 12/18/23 00:20 108 H 18 105/83 92 L 12/18/23 00:10 104 H 32 H 105/83 92 L 12/18/23 00:04 109 H 30 H 105/83 92 L 12/18/23 00:00 99.7 F H 97 24 91 L 12/17/23 23:50 98 30 H 118/84 91 L 12/17/23 23:40 103 H 30 H 118/84 91 L 12/17/23 23:30 123 H 31 H 109/92 94 L 12/17/23 23:20 130 H 31 H 109/92 94 L 12/17/23 23:10 123 H 31 H 109/92 93 L 12/17/23 23:00 124 H 26 H 110/75 94 L 12/17/23 22:50 120 H 28 H 110/75 93 L 12/17/23 22:40 120 H 24 110/75 95 12/17/23 22:30 98.5 F 125 H 20 107/75 94 L 12/17/23 22:20 113 H 28 H 101/86 96 12/17/23 22:10 118 H 29 H 101/86 96 12/17/23 22:00 129 H 24 101/86 95 12/17/23 21:50 123 H 20 101/86 94 L 12/17/23 21:45 125 H 12/17/23 21:40 115 H 29 H 101/86 95 12/17/23 21:30 125 H 24 101/86 95 12/17/23 21:20 108 H 18 101/86 93 L 12/17/23 21:10 126 H 23 89 L 12/17/23 21:09 125 H 26 H 89 L 12/17/23 20:15 12/17/23 20:04 111 H 97/65 10 L 12/17/23 19:25 99.2 F 32 L 28 H 111/77 91 L 12/17/23 18:45 98.4 F 91 L 12/17/23 17:48 100.3 F H 114 H 27 H 161/102 91 L 12/17/23 17:13 100.7 F H 123 H 34 H 12/17/23 15:10 12/17/23 14:48 100.5 F H 122 H 32 H 168/97 80 L 12/17/23 14:09 101.6 F H 95 26 H 166/95 92 L 12/17/23 14:00 127/82 12/17/23 13:50 127/82 12/17/23 13:40 127/82 12/17/23 13:30 127/82 12/17/23 13:20 127/82 12/17/23 13:10 127/82 12/17/23 13:00 127/82 12/17/23 12:50 127/82 12/17/23 12:42 98.4 F 12/17/23 12:40 127/82 12/17/23 12:30 127/82 12/17/23 12:20 127/82 12/17/23 12:11 127/82 12/17/23 12:00 127/82 12/17/23 11:50 127/82 12/17/23 11:40 127/82 12/17/23 11:30 107 H 35 H 127/82 12/17/23 11:20 96 22 127/82 12/17/23 11:10 103 H 25 H 127/82 12/17/23 11:00 100 22 12/17/23 10:50 95 23 127/82 12/17/23 10:40 28 H 127/82 12/17/23 10:30 89 23 127/82 12/17/23 10:20 105 H 19 127/82 12/17/23 10:10 89 36 H 127/82 12/17/23 10:00 92 16 127/82 12/17/23 09:50 98.4 F 91 18 127/82 92 L 12/17/23 09:40 33 H 12/17/23 09:30 89 29 H 12/17/23 09:20 90 24 12/17/23 09:10 90 9 L FiO2 12/18/23 07:38 90 12/18/23 07:00 12/18/23 06:50 12/18/23 06:40 12/18/23 06:30 12/18/23 06:20 12/18/23 06:10 12/18/23 06:00 12/18/23 05:50 12/18/23 05:40 12/18/23 05:30 12/18/23 05:20 12/18/23 05:10 12/18/23 05:00 12/18/23 04:50 12/18/23 04:40 12/18/23 04:30 12/18/23 04:20 12/18/23 04:10 12/18/23 04:00 90 12/18/23 03:50 12/18/23 03:40 12/18/23 03:30 12/18/23 03:20 12/18/23 03:10 12/18/23 03:00 12/18/23 02:50 12/18/23 02:40 12/18/23 02:30 12/18/23 02:20 12/18/23 02:10 12/18/23 02:00 12/18/23 01:50 12/18/23 01:40 12/18/23 01:30 12/18/23 01:20 12/18/23 01:10 12/18/23 01:00 12/18/23 00:50 12/18/23 00:40 12/18/23 00:30 12/18/23 00:20 12/18/23 00:10 12/18/23 00:04 12/18/23 00:00 90 12/17/23 23:50 12/17/23 23:40 12/17/23 23:30 12/17/23 23:20 12/17/23 23:10 12/17/23 23:00 12/17/23 22:50 12/17/23 22:40 12/17/23 22:30 90 12/17/23 22:20 12/17/23 22:10 12/17/23 22:00 12/17/23 21:50 12/17/23 21:45 12/17/23 21:40 12/17/23 21:30 12/17/23 21:20 12/17/23 21:10 12/17/23 21:09 12/17/23 20:15 60 12/17/23 20:04 40 12/17/23 19:25 40 12/17/23 18:45 12/17/23 17:48 12/17/23 17:13 12/17/23 15:10 40 12/17/23 14:48 12/17/23 14:09 12/17/23 14:00 12/17/23 13:50 12/17/23 13:40 12/17/23 13:30 12/17/23 13:20 12/17/23 13:10 12/17/23 13:00 12/17/23 12:50 12/17/23 12:42 12/17/23 12:40 12/17/23 12:30 12/17/23 12:20 12/17/23 12:11 12/17/23 12:00 12/17/23 11:50 12/17/23 11:40 12/17/23 11:30 12/17/23 11:20 12/17/23 11:10 12/17/23 11:00 12/17/23 10:50 12/17/23 10:40 12/17/23 10:30 12/17/23 10:20 12/17/23 10:10 12/17/23 10:00 12/17/23 09:50 12/17/23 09:40 12/17/23 09:30 12/17/23 09:20 12/17/23 09:10 Intake and Output 12/17/23 12/18/23 12/18/23 22:59 06:59 14:59 Intake Total 265.003 68.154 Output Total 900 750 40 Balance -900 -484.997 28.154 Intake: IV 160 20 IV Fluid 160 20 Intake, IV Titration 105.003 48.154 Amount Diltiazem 125 mg In 81 Sodium Chloride 0.9% 100 ml @ 10 MG/HR 10 mls/hr IV .[id number] [facility] Rx#: [id number] Heparin Sod,Pork in 0.45% 24.003 48.154 NaCl 25,000 unit In 0.45 % NaCl 1 250ml.bag @ 12 UNITS/KG/HR 7.62 mls/hr IV .Q24H [facility] Rx#: [id number] Output: Urine 900 750 40 Other: Voiding Method Indwelling Catheter Indwelling Catheter Weight 63.503 kg 78.9 kg Results 12/18/23 06:24 12/18/23 06:24 Cardiac Enzymes 12/18/23 Range/Units 06:24 AST 52 (17-59) U/L Coagulation 12/18/23 12/18/23 12/18/23 Range/Units 00:35 06:24 06:24 PT 13.1 H 11.8 (10.0-12.5) sec APTT 41.5 H 31.7 H 31.6 H (22.0-30.0) sec CBC 12/18/23 12/18/23 Range/Units 00:35 06:24 WBC 26.6 H 25.3 H (3.8-10.6) k/uL RBC 4.70 4.39 (4.30-5.90) m/uL Hgb 13.5 12.5 L (13.0-17.5) gm/dL Hct 42.0 38.5 L (39.0-53.0) % Plt Count 425 391 (150-450) k/uL Comprehensive Metabolic Panel 12/18/23 Range/Units 06:24 Sodium 133 L (137-145) mmol/L Potassium 3.3 L (3.5-5.1) mmol/L Chloride 105 (98-107) mmol/L Carbon Dioxide 21 L (22-30) mmol/L BUN 19 (9-20) mg/dL Creatinine 0.90 (0.66-1.25) mg/dL Glucose 173 H (74-99) mg/dL Calcium 8.3 L (8.4-10.2) mg/dL AST 52 (17-59) U/L ALT 87 H (4-49) U/L Alkaline Phosphatase 129 H (38-126) U/L Total Protein 5.8 L (6.3-8.2) g/dL Albumin 2.9 L (3.5-5.0) g/dL Current Medications Generic Name Dose Route Start Last Admin Trade Name Freq PRN Reason Stop Dose Admin Glycopyrrolate 2 mg 12/17/23 09:00 12/17/23 22:43 Glycopyrrolate 1 Mg Tab PO Not Given TID [facility] Heparin Sodium (Porcine) 0 unit 12/17/23 21:45 12/18/23 07:11 Heparin Sodium 1,000 Un/Ml (10ml Vl) IV 3,900 unit PER PROTOCOL PRN Administration Low PTT Protocol Piperacillin Sod/Tazobactam 100 mls @ 25 mls/hr 12/17/23 16:00 12/18/23 08:57 Sod 3.375 gm/ Sodium Chloride IVPB 25 mls/hr Q8HR [facility] Administration Protocol Acetaminophen 1,000 mg/ IV 100 mls @ 400 mls/hr 12/17/23 14:56 12/17/23 17:57 Solution IVPB 12/18/23 14:57 400 mls/hr Q6HR PRN Administration Fever Vancomycin HCl 1,250 mg/ 250 mls @ 125 mls/hr 12/17/23 19:00 12/18/23 06:48 Sodium Chloride IVPB 125 mls/hr Q12H [facility] Administration Diltiazem HCl 125 mg/ Sodium 125 mls @ 10 mls/hr 12/17/23 20:00 12/18/23 04: 24 Chloride IV 10 mg/hr .[id number] [facility] 10 mls/hr Administration 10 MG/HR Heparin Sodium/Sodium Chloride 250 mls @ 7.62 mls/hr 12/17/23 21:45 12/18/23 07:10 25,000 unit/ Sodium Chloride IV 17 units/kg/hr .Q24H [facility] 10.796 mls/hr Titration Protocol 12 UNITS/KG/HR Levothyroxine Sodium 88 mcg 12/17/23 09:00 12/18/23 04:25 Levothyroxine 88 Mcg Tab PO Not Given DAILY@0630 [facility] Metoprolol Tartrate 5 mg 12/17/23 22:54 12/17/23 23:30 Metoprolol Tartrate 5 Mg/5 Ml Vial IVP 5 mg Q8HR PRN Administration Heart Rate - HIGH Naloxone HCl 0.2 mg 12/17/23 06:05 Naloxone 0.4 Mg/Ml 1 Ml Vial IV Q2M PRN Opioid Reversal Ondansetron HCl 4 mg 12/17/23 06:05 Ondansetron 4 Mg/2 Ml Vial IVP Q8HR PRN Nausea And Vomiting Pantoprazole Sodium 40 mg 12/17/23 11:15 12/18/23 08:58 Pantoprazole 40 Mg/10 Ml Vial IVP 40 mg DAILY [facility] Administration Polyethylene Glycol 17 gm 12/17/23 11:15 12/17/23 16:34 Polyethylene Glycol 3350 17 Gm Powd.Pack PO Not Given DAILY [facility] Intake and Output 12/17/23 12/18/23 12/18/23 22:59 06:59 14:59 Intake Total 265.003 68.154 Output Total 900 750 40 Balance -900 -484.997 28.154 Intake: IV 160 20 IV Fluid 160 20 Intake, IV Titration 105.003 48.154 Amount Diltiazem 125 mg In 81 Sodium Chloride 0.9% 100 ml @ 10 MG/HR 10 mls/hr IV .[id number] [facility] Rx#: [id number] Heparin Sod,Pork in 0.45% 24.003 48.154 NaCl 25,000 unit In 0.45 % NaCl 1 250ml.bag @ 12 UNITS/KG/HR 7.62 mls/hr IV .Q24H [facility] Rx#: [id number] Output: Urine 900 750 40 Other: Voiding Method Indwelling Catheter Indwelling Catheter Weight 63.503 kg 78.9 kg 12/18/23 06:24 12/18/23 06:24
[2023-12-18] MEDS ORDERED: Potassium Replacement Protocol 1 EACH MISC MISCELLANE PRN ×2 (09:42→20:14)
[2023-12-18] MEDS: POTASSIUM CHLORIDE 10 MEQ in WATER FOR INJECTION 1 100ML.BAG IVPB SCH ×2 (10:40→20:26)
[2023-12-18] MEDS: MAGNESIUM SULFATE-D5W PMX 1 GM in DEXTROSE/WATER 1 100ML.BAG IVPB SCH (10:41)
--- NOTE | 2023-12-18 11:03 | XR ---
EXAMINATION TYPE: XR chest 1V DATE OF EXAM: 12/18/2023 5:18 AM CLINICAL INDICATION:Male, 78 years old with history of Assess lung status; [facility] COMPARISON: 12/17/2023 and before TECHNIQUE: XR chest 1V Portable AP radiograph of the chest.. FINDINGS: Lines/tubes/devices: EKG leads and other extrinsic structures overlie the chest. Cardiomediastinum: Cardiac silhouette appears stable, mildly enlarged. Mediastinum appears grossly unremarkable. Vasculature: Slightly increased bilateral hilar opacities with increased pulmonary vascular congestio n. Lungs/pleura: Diffuse patchy airspace opacities and increased interstitial opacities in the bilateral lungs, overal l appear slightly worsened. Similar blunting of the right costophrenic angle and improved blunting of the left costophrenic angle compared to prior. No visualized pneumothorax. Bones/soft tissues: Bony thorax appears grossly unchanged as seen. Degenerative changes of the spine and shoulders. IMPRESSION: 1. Cardiomegaly. 2. Worsening pulmonary vascular congestion, bilateral perihilar and diffuse bilateral pulmonary inte rstitial and airspace opacities, may relate to moderate to severe CHF with superimposed infectious/in flammatory process also considered. 3. Small to moderate right pleural effusion, stable. Decreased, small left pleural effusion.
[2023-12-18 11:31] LABS: NT-Pro-B-Type Natriuretic Pept 29800 pg/mL
--- NOTE | 2023-12-18 11:32 | P.PN ---
Subjective Progress Note Date: 12/18/23 This is a 78-year-old male patient with a known history of hypertension, hypothyroidism, diabetes mellitus and previous throat cancer status post permanent tracheostomy tube placement. Proximally 1 week ago at [facility] he had undergone dilatation for esophageal stricture. Since that time he has not had a bowel movement and has had difficulty in urination. Yesterday he was having significant weakness and felt 2 times. He also was found to have a fever. Was brought in to the hospital here early this morning. White count 13.8. Hemoglobin 12.2. Sodium 130. Potassium 4.4. Bicarb 21. BUN 16. Creatinine 0.81. Glucose 223. Initial lactic acid 3.2, currently 1.5. AST 88. ALT 135. Urinalysis with trace protein 1+ glucose. 1+ ketones high WBCs and rare bacteria. Viral screen was negative. Chest x-ray revealed cardiomegaly but no acute cardiopulmonary process. He is seen today in consultation in the emergency department. He is currently sitting up on the stretcher. Awake and alert. Denies any worsening shortness of breath, cough or congestion. His main complaint was of a headache which seems to have improved. He has been initiated on ceftriaxone and azithromycin. Normal saline at 130 MLS per hour. He received 1500 mL of fluid resuscitation with normal saline. He received Tylenol for his fever and is currently afebrile. Hemodynamically stable. Maintaining O2 saturation in the 90s on room air. The patient is seen today December 18, 2023 in follow-up in the intensive care unit. Yesterday, as the day progressed, he became more obtunded and unresponsive. CT scan of the brain revealed no acute intracranial abnormality. There is evidence of atrophy and chronic microvascular ischemic white matter changes. Remote right MCA territory infarct. Air-fluid level in the left maxillary sinus, possible acute versus chronic sinus disease. CT scan of the chest and abdomen revealed a nonobstructing left intrarenal calculi. Mild hepatomegaly. Cholelithiasis. Tracheostomy tube in place. Mucus in the distal trachea. Possible aspiration. Mild cardiomegaly with lung findings suggesting of moderate congestive heart failure. Cannot rule out underlying infection. White count 25.3. Hemoglobin 12.5. Platelets 391. Sodium 133. Potassium 3.3. Bicarb 21. BUN 19. Creatinine 0.90. Glucose 173. Arterial blood gases revealed a PaO2 of 57, pCO2 of 29 and a pH of 7.50 on 60% FiO2. He is currently on trach collar at 90% FiO2. Today's chest x-ray reveals cardiomegaly with worsening pulmonary vascular congestion, bilateral perihilar and diffuse bila teral pulmonary interstitial and airspace opacities. Suggestive of moderate to severe CHF with superimposed infectious/inflammatory process. Small to moderate right pleural effusion. Small left pleural effusion. Blood cultures positive for Streptococcus pneumoniae. He is currently on vancomycin and Zosyn. He is also in atrial fibrillation with a rapid ventricular response. He is on a Cardizem drip at 10 mg/h. Heparin drip per weight-based protocol. Normal saline at 20 mL/h. He received Lasix 40 mg IVP x 1. Currently in a -1.5 L balance. Objective - Vital Signs Vital signs: Vital Signs Temp 98.2 F 12/18/23 08:00 Pulse 96 12/18/23 11:00 Resp 24 12/18/23 11:00 BP 98/70 12/18/23 11:00 Pulse Ox 93 L 12/18/23 11:00 FiO2 90 12/18/23 11:00 Intake & Output 12/17/23 12/18/23 12/18/23 18:59 06:59 18:59 Intake Total 265.003 428.154 Output Total 200 1650 145 Balance -200 -1384.997 283.154 Weight 63.503 kg 78.9 kg Intake: IV 160 80 IV Fluid 160 80 Intake, IV Titration 105.003 348.154 Amount Diltiazem 125 mg In 81 Sodium Chloride 0.9% 100 ml @ 10 MG/HR 10 mls/hr IV .[id number] REYNA Rx#: [id number] Heparin Sod,Pork in 0.45% 24.003 48.154 NaCl 25,000 unit In 0.45 % NaCl 1 250ml.bag @ 12 UNITS/KG/HR 7.62 mls/hr IV .Q24H REYNA Rx#: [id number] Magnesium Sulfate-D5w Pmx 100 1 gm In Dextrose/Water 1 100ml.bag @ 100 mls/hr IVPB Q1H REYNA Rx#: [id number] Piperacillin-Tazobactam 3 100 .375 gm In Sodium Chloride 0.9% 100 ml @ 25 mls/hr IVPB Q8HR REYNA Rx# :[id number] Potassium Chloride 10 meq 100 In Water For Injection 1 100ml.bag @ 100 mls/hr IVPB Q1H REYNA Rx#: [id number] Output: Urine 200 1650 145 Uretheral (Rizzo) 200 Other: Voiding Method Indwelling Catheter Indwelling Catheter Indwelling Catheter - Exam GENERAL EXAM: Obtunded, 78-year-old male, on 90% FiO2 via trach collar. HEAD: Normocephalic. EYES: Normal reaction of pupils, equal size. NOSE: Clear with pink turbinates. THROAT: No erythema or exudates. NECK: No masses, no JVD. Tracheotomy in place. CHEST: No chest wall deformity. LUNGS: Equal air entry with bilateral scattered rhonchi, crackles. CVS: S1 and S2 normal with no audible murmur, regular rhythm. ABDOMEN: No hepatosplenomegaly, normal bowel sounds, no guarding or rigidity. SPINE: No scoliosis or deformity SKIN: No rashes CENTRAL NERVOUS SYSTEM: Obtunded, tone is normal in all 4 extremities. EXTREMITIES: There is trace peripheral edema. No clubbing, no cyanosis. Peripheral pulses are intact. - Labs CBC & Chem 7: 12/18/23 06:24 12/18/23 06:24 Labs: Abnormal Lab Results - Last 24 Hours (Table) 12/17/23 12/17/23 12/17/23 Range/Units 09:33 15:18 15:31 WBC (3.8-10.6) k/uL Hgb (13.0-17.5) gm/dL Hct (39.0-53.0) % Neutrophils # (1.3-7.7) k/uL Lymphocytes # (1.0-4.8) k/uL Monocytes # (0-1.0) k/uL PT (10.0-12.5) sec INR (<1.2) APTT (22.0-30.0) sec ABG pH (7.35-7.45) ABG pCO2 (35-45) mmHg ABG pO2 (83-108) mmHg ABG O2 Saturation (94-97) % Sodium (137-145) mmol/L Potassium (3.5-5.1) mmol/L Carbon Dioxide (22-30) mmol/L Glucose (74-99) mg/dL POC Glucose (mg/dL) 189 H 184 H (70-110) mg/dL Calcium (8.4-10.2) mg/dL ALT (4-49) U/L Alkaline Phosphatase (38-126) U/L C-Reactive Protein (<1.0) mg/dL Total Protein (6.3-8.2) g/dL Albumin (3.5-5.0) g/dL Procalcitonin 0.43 H (0.02-0.09) ng/mL 12/17/23 12/17/23 12/17/23 Range/Units 15:51 20:07 20:28 WBC (3.8-10.6) k/uL Hgb (13.0-17.5) gm/dL Hct (39.0-53.0) % Neutrophils # (1.3-7.7) k/uL Lymphocytes # (1.0-4.8) k/uL Monocytes # (0-1.0) k/uL PT (10.0-12.5) sec INR (<1.2) APTT (22.0-30.0) sec ABG pH 7.48 H 7.50 H (7.35-7.45) ABG pCO2 31 L 29 L (35-45) mmHg ABG pO2 67 L 57 L* (83-108) mmHg ABG O2 Saturation 92.0 L (94-97) % Sodium (137-145) mmol/L Potassium (3.5-5.1) mmol/L Carbon Dioxide (22-30) mmol/L Glucose (74-99) mg/dL POC Glucose (mg/dL) 173 H (70-110) mg/dL Calcium (8.4-10.2) mg/dL ALT (4-49) U/L Alkaline Phosphatase (38-126) U/L C-Reactive Protein (<1.0) mg/dL Total Protein (6.3-8.2) g/dL Albumin (3.5-5.0) g/dL Procalcitonin (0.02-0.09) ng/mL 12/17/23 12/18/23 12/18/23 Range/Units 21:14 00:35 00:35 WBC 26.6 H (3.8-10.6) k/uL Hgb (13.0-17.5) gm/dL Hct (39.0-53.0) % Neutrophils # 24.4 H (1.3-7.7) k/uL Lymphocytes # 0.6 L (1.0-4.8) k/uL Monocytes # 1.2 H (0-1.0) k/uL PT 13.1 H (10.0-12.5) sec INR 1.2 H (<1.2) APTT 41.5 H (22.0-30.0) sec ABG pH (7.35-7.45) ABG pCO2 (35-45) mmHg ABG pO2 (83-108) mmHg ABG O2 Saturation (94-97) % Sodium (137-145) mmol/L Potassium (3.5-5.1) mmol/L Carbon Dioxide (22-30) mmol/L Glucose (74-99) mg/dL POC Glucose (mg/dL) 204 H (70-110) mg/dL Calcium (8.4-10.2) mg/dL ALT (4-49) U/L Alkaline Phosphatase (38-126) U/L C-Reactive Protein (<1.0) mg/dL Total Protein (6.3-8.2) g/dL Albumin (3.5-5.0) g/dL Procalcitonin (0.02-0.09) ng/mL 12/18/23 12/18/23 12/18/23 Range/Units 06:24 06:24 06:24 WBC 25.3 H (3.8-10.6) k/uL Hgb 12.5 L (13.0-17.5) gm/dL Hct 38.5 L (39.0-53.0) % Neutrophils # 23.7 H (1.3-7.7) k/uL Lymphocytes # 0.3 L (1.0-4.8) k/uL Monocytes # (0-1.0) k/uL PT (10.0-12.5) sec INR (<1.2) APTT 31.7 H (22.0-30.0) sec ABG pH (7.35-7.45) ABG pCO2 (35-45) mmHg ABG pO2 (83-108) mmHg ABG O2 Saturation (94-97) % Sodium 133 L (137-145) mmol/L Potassium 3.3 L (3.5-5.1) mmol/L Carbon Dioxide 21 L (22-30) mmol/L Glucose 173 H (74-99) mg/dL POC Glucose (mg/dL) (70-110) mg/dL Calcium 8.3 L (8.4-10.2) mg/dL ALT 87 H (4-49) U/L Alkaline Phosphatase 129 H (38-126) U/L C-Reactive Protein 35.4 H (<1.0) mg/dL Total Protein 5.8 L (6.3-8.2) g/dL Albumin 2.9 L (3.5-5.0) g/dL Procalcitonin (0.02-0.09) ng/mL 12/18/23 Range/Units 06:24 WBC (3.8-10.6) k/uL Hgb (13.0-17.5) gm/dL Hct (39.0-53.0) % Neutrophils # (1.3-7.7) k/uL Lymphocytes # (1.0-4.8) k/uL Monocytes # (0-1.0) k/uL PT (10.0-12.5) sec INR (<1.2) APTT 31.6 H (22.0-30.0) sec ABG pH (7.35-7.45) ABG pCO2 (35-45) mmHg ABG pO2 (83-108) mmHg ABG O2 Saturation (94-97) % Sodium (137-145) mmol/L Potassium (3.5-5.1) mmol/L Carbon Dioxide (22-30) mmol/L Glucose (74-99) mg/dL POC Glucose (mg/dL) (70-110) mg/dL Calcium (8.4-10.2) mg/dL ALT (4-49) U/L Alkaline Phosphatase (38-126) U/L C-Reactive Protein (<1.0) mg/dL Total Protein (6.3-8.2) g/dL Albumin (3.5-5.0) g/dL Procalcitonin (0.02-0.09) ng/mL Microbiology - Last 24 Hours (Table) 12/17/23 03:05 Blood Culture Gram Stain - Preliminary Blood Blood Culture - Preliminary Streptococcus pneumoniae Assessment and Plan Assessment: Altered mental status secondary to bacteremia Bacteremia secondary to Streptococcus pneumoniae Febrile illness secondary to above Acute hypoxemic respiratory failure secondary to suspected systolic versus diastolic congestive heart failure, possible aspiration pneumonia Respiratory alkalosis secondary to above Atrial fibrillation with rapid ventricular response Recent esophageal dilatation at [facility] 1 week ago History of throat cancer, remains with tracheotomy Hypothyroidism Hypertension Diabetes mellitus Former smoker, mainly cigars Plan: The patient was seen and evaluated Chest x-ray, ABGs, microbiology, labs and medications reviewed CT scan of the chest, CT scan of the brain reviewed On vancomycin and Zosyn Obtain a proBNP May require more diuretics Remains on a heparin drip Remains on a Cardizem drip Currently on 90% FiO2 via trach collar Titrate the FiO2 as tolerated Condition is guarded We will continue to follow I have personally seen and examined the patient, performed the documentation and the assessment and plan as written. Number of minutes spent on the visit: 10.
[2023-12-18] MEDS: FUROSEMIDE 10 MG/ML 4 ML VIAL IV STA (12:31)
--- NOTE | 2023-12-18 13:20 | P.PN ---
Subjective Progress Note Date: 12/18/23 * 78 year old male with PMH of hypertension, hypothyroidism, diabetes mellitus and previous throat cancer s/p radiation and permanent tracheostomy. * Approximately 1 week ago at [facility] he underwent EGD with dilation for his longstanding esophageal stricture. He has been constipated since this procedure and had been having difficulty urinating, but denies any fevers or respiratory issues earlier in the week. Pt's reports she noticed he fell two times and hit his head and was noted with fever at home so was brought in to the hospital. * On presentation WBC 13.8 Hemoglobin 12.2, Na 130 K 4.4. BUN 16. Creatinine 0.81. Glucose 223. Initial lactic acid 3.2, currently 1.5. LFTs are u nremarkable. Urinalysis with trace protein 1+ glucose. 1+ ketones high WBCs and rare bacteria. * Viral screen was negative. Chest x-ray revealed cardiomegaly, no acute cardiopulmonary process. Pt with increasing O2 requirements subsequently with 40% FiO2 via trach collar in addition to tachycardia. * 12/18/2023. Patient seen and evaluated bedside, patient in medical ICU, patient on oxygen through trach collar 90% FiO2 10 L PHYSICAL EXAMINATION: GENERAL: The patient is alert and oriented x 0 , ill appearance, trach in place HEENT: Pupils are round and equally reacting to light. CARDIOVASCULAR: S1 and S2 present. Irregular tachycardia noted PULMONARY: Chest is clear to auscultation, no wheezing or crackles. ABDOMEN: Soft, nontender, nondistended, normoactive bowel sounds. No palpable organomegaly. MUSCULOSKELETAL: No joint swelling or deformity. EXTREMITIES: No cyanosis, clubbing, or pedal edema. NEUROLOGICAL: Oriented Assessment and plan * Acute hypoxemic respiratory failure with aspiration pneumonia * Sepsis secondary to pneumonia * Atrial fibrillation with rapid ventricle response * History of throat cancer s/p tracheostomy in place * Acute metabolic encephalopathy * esophageal stricture s/p dilatation prior to admission 1 week ago * In regards to sepsis from pneumonia continue patient on Zosyn and vancomycin continue management and medical ICU. Consultation obtained from infectious disease * Regards to atrial fibrillation with rapid monitor response continue Cardizem drip continue patient on IV heparin cardiology following * In regards to sepsis blood cultures ordered,, continue fluid resuscitation * In regards to history of hypertension continue to hold lisinopril hydrochlorothiazide * Regards to acute encephalopathy, likely metabolic in origin however will need to rule out CVA, neurology on consult * Remains n.p.o. secondary to encephalopathy Objective - Vital Signs Vital signs: Vital Signs Temp 98.2 F 12/18/23 08:00 Pulse 110 H 12/18/23 09:00 Resp 24 12/18/23 09:00 BP 91/64 12/18/23 09:00 Pulse Ox 92 L 12/18/23 09:00 FiO2 90 12/18/23 09:00 Intake & Output 12/17/23 12/18/23 12/18/23 18:59 06:59 18:59 Intake Total 265.003 208.154 Output Total 200 1650 100 Balance -200 -1384.997 108.154 Weight 63.503 kg 78.9 kg Intake: IV 160 60 IV Fluid 160 60 Intake, IV Titration 105.003 148.154 Amount Diltiazem 125 mg In 81 Sodium Chloride 0.9% 100 ml @ 10 MG/HR 10 mls/hr IV .[id number] REYNA Rx#: [id number] Heparin Sod,Pork in 0.45% 24.003 48.154 NaCl 25,000 unit In 0.45 % NaCl 1 250ml.bag @ 12 UNITS/KG/HR 7.62 mls/hr IV .Q24H REYNA Rx#: [id number] Piperacillin-Tazobactam 3 100 .375 gm In Sodium Chloride 0.9% 100 ml @ 25 mls/hr IVPB Q8HR REYNA Rx# :[id number] Output: Urine 200 1650 100 Uretheral (Rizzo) 200 Other: Voiding Method Indwelling Catheter Indwelling Catheter Indwelling Catheter - Labs CBC & Chem 7: 12/18/23 06:24 12/18/23 06:24 Labs: Abnormal Lab Results - Last 24 Hours (Table) 12/17/23 12/17/23 12/17/23 Range/Units 09:33 15:18 15:31 WBC (3.8-10.6) k/uL Hgb (13.0-17.5) gm/dL Hct (39.0-53.0) % Neutrophils # (1.3-7.7) k/uL Lymphocytes # (1.0-4.8) k/uL Monocytes # (0-1.0) k/uL PT (10.0-12.5) sec INR (<1.2) APTT (22.0-30.0) sec ABG pH (7.35-7.45) ABG pCO2 (35-45) mmHg ABG pO2 (83-108) mmHg ABG O2 Saturation (94-97) % Sodium (137-145) mmol/L Potassium (3.5-5.1) mmol/L Carbon Dioxide (22-30) mmol/L Glucose (74-99) mg/dL POC Glucose (mg/dL) 189 H 184 H (70-110) mg/dL Calcium (8.4-10.2) mg/dL ALT (4-49) U/L Alkaline Phosphatase (38-126) U/L C-Reactive Protein (<1.0) mg/dL Total Protein (6.3-8.2) g/dL Albumin (3.5-5.0) g/dL Procalcitonin 0.43 H (0.02-0.09) ng/mL 12/17/23 12/17/23 12/17/23 Range/Units 15:51 20:07 20:28 WBC (3.8-10.6) k/uL Hgb (13.0-17.5) gm/dL Hct (39.0-53.0) % Neutrophils # (1.3-7.7) k/uL Lymphocytes # (1.0-4.8) k/uL Monocytes # (0-1.0) k/uL PT (10.0-12.5) sec INR (<1.2) APTT (22.0-30.0) sec ABG pH 7.48 H 7.50 H (7.35-7.45) ABG pCO2 31 L 29 L (35-45) mmHg ABG pO2 67 L 57 L* (83-108) mmHg ABG O2 Saturation 92.0 L (94-97) % Sodium (137-145) mmol/L Potassium (3.5-5.1) mmol/L Carbon Dioxide (22-30) mmol/L Glucose (74-99) mg/dL POC Glucose (mg/dL) 173 H (70-110) mg/dL Calcium (8.4-10.2) mg/dL ALT (4-49) U/L Alkaline Phosphatase (38-126) U/L C-Reactive Protein (<1.0) mg/dL Total Protein (6.3-8.2) g/dL Albumin (3.5-5.0) g/dL Procalcitonin (0.02-0.09) ng/mL 12/17/23 12/18/23 12/18/23 Range/Units 21:14 00:35 00:35 WBC 26.6 H (3.8-10.6) k/uL Hgb (13.0-17.5) gm/dL Hct (39.0-53.0) % Neutrophils # 24.4 H (1.3-7.7) k/uL Lymphocytes # 0.6 L (1.0-4.8) k/uL Monocytes # 1.2 H (0-1.0) k/uL PT 13.1 H (10.0-12.5) sec INR 1.2 H (<1.2) APTT 41.5 H (22.0-30.0) sec ABG pH (7.35-7.45) ABG pCO2 (35-45) mmHg ABG pO2 (83-108) mmHg ABG O2 Saturation (94-97) % Sodium (137-145) mmol/L Potassium (3.5-5.1) mmol/L Carbon Dioxide (22-30) mmol/L Glucose (74-99) mg/dL POC Glucose (mg/dL) 204 H (70-110) mg/dL Calcium (8.4-10.2) mg/dL ALT (4-49) U/L Alkaline Phosphatase (38-126) U/L C-Reactive Protein (<1.0) mg/dL Total Protein (6.3-8.2) g/dL Albumin (3.5-5.0) g/dL Procalcitonin (0.02-0.09) ng/mL 12/18/23 12/18/23 12/18/23 Range/Units 06:24 06:24 06:24 WBC 25.3 H (3.8-10.6) k/uL Hgb 12.5 L (13.0-17.5) gm/dL Hct 38.5 L (39.0-53.0) % Neutrophils # 23.7 H (1.3-7.7) k/uL Lymphocytes # 0.3 L (1.0-4.8) k/uL Monocytes # (0-1.0) k/uL PT (10.0-12.5) sec INR (<1.2) APTT 31.7 H (22.0-30.0) sec ABG pH (7.35-7.45) ABG pCO2 (35-45) mmHg ABG pO2 (83-108) mmHg ABG O2 Saturation (94-97) % Sodium 133 L (137-145) mmol/L Potassium 3.3 L (3.5-5.1) mmol/L Carbon Dioxide 21 L (22-30) mmol/L Glucose 173 H (74-99) mg/dL POC Glucose (mg/dL) (70-110) mg/dL Calcium 8.3 L (8.4-10.2) mg/dL ALT 87 H (4-49) U/L Alkaline Phosphatase 129 H (38-126) U/L C-Reactive Protein 35.4 H (<1.0) mg/dL Total Protein 5.8 L (6.3-8.2) g/dL Albumin 2.9 L (3.5-5.0) g/dL Procalcitonin (0.02-0.09) ng/mL 12/18/23 Range/Units 06:24 WBC (3.8-10.6) k/uL Hgb (13.0-17.5) gm/dL Hct (39.0-53.0) % Neutrophils # (1.3-7.7) k/uL Lymphocytes # (1.0-4.8) k/uL Monocytes # (0-1.0) k/uL PT (10.0-12.5) sec INR (<1.2) APTT 31.6 H (22.0-30.0) sec ABG pH (7.35-7.45) ABG pCO2 (35-45) mmHg ABG pO2 (83-108) mmHg ABG O2 Saturation (94-97) % Sodium (137-145) mmol/L Potassium (3.5-5.1) mmol/L Carbon Dioxide (22-30) mmol/L Glucose (74-99) mg/dL POC Glucose (mg/dL) (70-110) mg/dL Calcium (8.4-10.2) mg/dL ALT (4-49) U/L Alkaline Phosphatase (38-126) U/L C-Reactive Protein (<1.0) mg/dL Total Protein (6.3-8.2) g/dL Albumin (3.5-5.0) g/dL Procalcitonin (0.02-0.09) ng/mL Microbiology - Last 24 Hours (Table) 12/17/23 03:05 Blood Culture Gram Stain - Preliminary Blood
--- NOTE | 2023-12-18 13:29 | P.CNNES ---
History of Present Illness Consult date: 12/18/23 Requesting physician: James Betancur Reason for Consult: ams History of Present Illness: This is a 78-year-old gentleman who presents because of a fall and a fever. History is obtained from patient's daughter was at bedside as well as the patient nurse. According to the daughter she patient fell it seems that the patient fell twice. No seizure-like activity noted. No focal weakness. It seems that the patient has underlying history of previous throat cancer status post radiation as well as tracheostomy about 1820 years ago and about a week ago patient had the esophageal stricture and had dilation. Patient was having difficulty swallowing recently and not feeling well. Yesterday and he was really confused and not responding. Today he responding to the daughter. Per the nurse it seems that the patient has underlying aspiration pneumonia and getting antibiotic. Also patient was in A. fib with RVR recently during his hospital visit and is on heparin drip back. As well as felt the long was pulmonary congestion According to the daughter they're unaware the patient has any underlying history of A. fib prior to this. Of note, per daughter the patient has underlying history of right MCA stroke with residual mild left facial droop. Some of the work-up during this hospital visit consisted of: On initial presentation temperature is 101.6F and currently it was controlled. White blood cell on initial presentation was 13.8 and the is trended up most recent is 25.3 predominantly neutrophilic. Ammonia level is 9 TSH is 1.090 Sodium is 133, calcium is 8.3, phosphorus 3.2 magnesium 2.0 Blood cultures positive for strep pneumo. Chest x-rays reported as cardiomegaly. Worsening pulmonary vascular congestion, bilateral peripheral and diffuse bilateral pulmonary interstitial and airspace opacity may relate to moderate to severe congestive heart failure was superimposed infection/inflammatory process also considered CT of the head is reported as no CT evidence of acute intracranial abnormality. Atrophy and chronic microvascular ischemic white matter changes. Remote right MCA infarct. Air-fluid level left maxillary sinus correlates for acute or chronic sinus disease. Review of Systems Review of system is limited with apparent positive and negative as per HPI. Past Medical History Past Medical History: Cancer, Hypertension Additional Past Medical History / Comment(s): esophageal varices History of Any Multi-Drug Resistant Organisms: None Reported Additional Past Surgical History / Comment(s): Tracheostomy, dilation of esophageal varices. Past Anesthesia/Blood Transfusion Reactions: No Reported Reaction Past Psychological History: No Psychological Hx Reported Smoking Status: Former smoker - Past Family History Father Family Medical History: No Reported History, Unable to Obtain Medications and Allergies Home Medications Medication Instructions Recorded Confirmed Type Levothyroxine Sodium [Synthroid] 88 mcg PO DAILY 01/27/16 12/17/23 History amLODIPine [Norvasc] 5 mg PO DAILY 01/27/16 12/17/23 History Aspirin EC [Ecotrin Low Dose] 81 mg PO DAILY #30 tablet. 01/30/16 12/17/23 Rx Glycopyrrolate [Robinul] 2 mg PO TID 04/12/19 12/17/23 History Cholecalciferol [Vitamin D3 (25 25 mcg PO DAILY 12/17/23 12/17/23 History Mcg = 1000 Iu)] Cyclobenzaprine [Flexeril] 5 mg PO TID 12/17/23 12/17/23 History Hydrocodone/Acetaminophen 15 ml PO Q6H 12/17/23 12/17/23 History [Hydrocodone/Acetaminophen 7.5-325/15 ML] Ibuprofen [Motrin] 600 mg PO TID 12/17/23 12/17/23 History Lisinopril/Hydrochlorothiazide 1 tab PO DAILY 12/17/23 12/17/23 History [Zestoretic 20-25] Omeprazole [PriLOSEC] 40 mg PO DAILY 12/17/23 12/17/23 History Allergies Allergy/AdvReac Type Severity Reaction Status Date / Time No Known Allergies Allergy Verified 12/17/23 08:00 Physical Examination - Vital Signs Vital Signs: Vital Signs Temp Pulse Pulse Resp BP BP Pulse Ox 12/18/23 13:00 109 H 28 H 107/82 90 L 12/18/23 12:30 111 H 22 117/83 90 L 12/18/23 12:00 128 H 24 104/80 90 L 12/18/23 11:30 90 22 97/75 98 12/18/23 11:00 96 24 98/70 93 L 12/18/23 10:30 102 H 26 H 93/62 93 L 12/18/23 10:00 105 H 24 96/69 93 L 12/18/23 09:30 108 H 18 93/64 93 L 12/18/23 09:00 110 H 24 91/64 92 L 12/18/23 08:30 105 H 26 H 98/63 91 L 12/18/23 08:00 98.2 F 98 19 106/71 92 L 12/18/23 07:38 92 L 12/18/23 07:30 116 H 18 97/71 92 L 12/18/23 07:00 104 H 28 H 104/77 92 L 12/18/23 06:50 112 H 23 104/77 91 L 12/18/23 06:40 71 37 H 104/77 92 L 12/18/23 06:30 108 H 32 H 104/73 92 L 12/18/23 06:20 110 H 32 H 104/73 93 L 12/18/23 06:10 122 H 32 H 104/73 92 L 12/18/23 06:00 99.2 F 113 H 30 H 129/99 92 L 12/18/23 05:50 122 H 34 H 129/99 92 L 12/18/23 05:40 121 H 34 H 129/99 91 L 12/18/23 05:30 134 H 33 H 118/78 92 L 12/18/23 05:20 117 H 32 H 118/78 92 L 12/18/23 05:10 121 H 33 H 118/78 92 L 12/18/23 05:00 118 H 28 H 116/83 91 L 12/18/23 04:50 124 H 22 116/83 92 L 12/18/23 04:40 117 H 31 H 116/83 91 L 12/18/23 04:30 138 H 32 H 105/95 92 L 12/18/23 04:20 122 H 32 H 105/95 92 L 12/18/23 04:10 115 H 24 105/95 91 L 12/18/23 04:00 99.9 F H 109 H 33 H 123/89 92 L 12/18/23 03:50 121 H 33 H 123/89 92 L 12/18/23 03:40 123 H 35 H 123/89 92 L 12/18/23 03:30 122 H 31 H 125/87 93 L 12/18/23 03:20 125 H 32 H 125/87 93 L 12/18/23 03:10 151 H 31 H 125/87 94 L 12/18/23 03:00 129 H 33 H 116/83 93 L 12/18/23 02:50 125 H 31 H 116/83 91 L 12/18/23 02:40 121 H 31 H 116/83 92 L 12/18/23 02:30 137 H 31 H 121/84 91 L 12/18/23 02:20 140 H 32 H 121/84 91 L 12/18/23 02:10 131 H 25 H 121/84 91 L 12/18/23 02:00 129 H 32 H 121/97 92 L 12/18/23 01:50 147 H 32 H 121/97 92 L 12/18/23 01:40 128 H 34 H 121/97 91 L 12/18/23 01:30 137 H 34 H 137/97 92 L 12/18/23 01:20 141 H 33 H 137/97 93 L 12/18/23 01:10 120 H 32 H 137/97 93 L 12/18/23 01:00 135 H 31 H 124/100 93 L 12/18/23 00:50 134 H 31 H 124/100 92 L 12/18/23 00:40 109 H 30 H 124/100 92 L 12/18/23 00:30 123 H 31 H 105/83 92 L 12/18/23 00:20 108 H 18 105/83 92 L 12/18/23 00:10 104 H 32 H 105/83 92 L 12/18/23 00:04 109 H 30 H 105/83 92 L 12/18/23 00:00 99.7 F H 97 24 91 L 12/17/23 23:50 98 30 H 118/84 91 L 12/17/23 23:40 103 H 30 H 118/84 91 L 12/17/23 23:30 123 H 31 H 109/92 94 L 12/17/23 23:20 130 H 31 H 109/92 94 L 12/17/23 23:10 123 H 31 H 109/92 93 L 12/17/23 23:00 124 H 26 H 110/75 94 L 12/17/23 22:50 120 H 28 H 110/75 93 L 12/17/23 22:40 120 H 24 110/75 95 12/17/23 22:30 98.5 F 125 H 20 107/75 94 L 12/17/23 22:20 113 H 28 H 101/86 96 12/17/23 22:10 118 H 29 H 101/86 96 12/17/23 22:00 129 H 24 101/86 95 12/17/23 21:50 123 H 20 101/86 94 L 12/17/23 21:45 125 H 12/17/23 21:40 115 H 29 H 101/86 95 12/17/23 21:30 125 H 24 101/86 95 12/17/23 21:20 108 H 18 101/86 93 L 12/17/23 21:10 126 H 23 89 L 12/17/23 21:09 125 H 26 H 89 L 12/17/23 20:15 12/17/23 20:04 111 H 97/65 10 L 12/17/23 19:25 99.2 F 32 L 28 H 111/77 91 L 12/17/23 18:45 98.4 F 91 L 12/17/23 17:48 100.3 F H 114 H 27 H 161/102 91 L 12/17/23 17:13 100.7 F H 123 H 34 H 12/17/23 15:10 12/17/23 14:48 100.5 F H 122 H 32 H 168/97 80 L 12/17/23 14:09 101.6 F H 95 26 H 166/95 92 L 12/17/23 14:00 127/82 12/17/23 13:50 127/82 12/17/23 13:40 127/82 12/17/23 13:30 127/82 12/17/23 13:20 127/82 12/17/23 13:10 127/82 FiO2 12/18/23 13:00 90 12/18/23 12:30 12/18/23 12:00 90 12/18/23 11:30 12/18/23 11:00 90 12/18/23 10:30 12/18/23 10:00 90 12/18/23 09:30 12/18/23 09:00 90 12/18/23 08:30 12/18/23 08:00 90 12/18/23 07:38 90 12/18/23 07:30 12/18/23 07:00 12/18/23 06:50 12/18/23 06:40 12/18/23 06:30 12/18/23 06:20 12/18/23 06:10 12/18/23 06:00 12/18/23 05:50 12/18/23 05:40 12/18/23 05:30 12/18/23 05:20 12/18/23 05:10 12/18/23 05:00 12/18/23 04:50 12/18/23 04:40 12/18/23 04:30 12/18/23 04:20 12/18/23 04:10 12/18/23 04:00 90 12/18/23 03:50 12/18/23 03:40 12/18/23 03:30 12/18/23 03:20 12/18/23 03:10 12/18/23 03:00 12/18/23 02:50 12/18/23 02:40 12/18/23 02:30 12/18/23 02:20 12/18/23 02:10 12/18/23 02:00 12/18/23 01:50 12/18/23 01:40 12/18/23 01:30 12/18/23 01:20 12/18/23 01:10 12/18/23 01:00 12/18/23 00:50 12/18/23 00:40 12/18/23 00:30 12/18/23 00:20 12/18/23 00:10 12/18/23 00:04 12/18/23 00:00 90 12/17/23 23:50 12/17/23 23:40 12/17/23 23:30 12/17/23 23:20 12/17/23 23:10 12/17/23 23:00 12/17/23 22:50 12/17/23 22:40 12/17/23 22:30 90 12/17/23 22:20 12/17/23 22:10 12/17/23 22:00 12/17/23 21:50 12/17/23 21:45 12/17/23 21:40 12/17/23 21:30 12/17/23 21:20 12/17/23 21:10 12/17/23 21:09 12/17/23 20:15 60 12/17/23 20:04 40 12/17/23 19:25 40 12/17/23 18:45 12/17/23 17:48 12/17/23 17:13 12/17/23 15:10 40 12/17/23 14:48 12/17/23 14:09 12/17/23 14:00 12/17/23 13:50 12/17/23 13:40 12/17/23 13:30 12/17/23 13:20 12/17/23 13:10 Intake and Output 12/17/23 12/18/23 12/18/23 22:59 06:59 14:59 Intake Total 265.003 688.154 Output Total 900 750 210 Balance -900 -484.997 478.154 Intake: IV 160 40 IV Fluid 160 40 Intake, IV Titration 105.003 648.154 Amount Diltiazem 125 mg In 81 Sodium Chloride 0.9% 100 ml @ 10 MG/HR 10 mls/hr IV .[id number] RE[facility] Rx#: [id number] Heparin Sod,Pork in 0.45% 24.003 48.154 NaCl 25,000 unit In 0.45 % NaCl 1 250ml.bag @ 12 UNITS/KG/HR 7.62 mls/hr IV .Q24H REYNA Rx#: [id number] Magnesium Sulfate-D5w Pmx 200 1 gm In Dextrose/Water 1 100ml.bag @ 100 mls/hr IVPB Q1H RE[facility]NA Rx#: [id number] Piperacillin-Tazobactam 3 100 .375 gm In Sodium Chloride 0.9% 100 ml @ 25 mls/hr IVPB Q8HR [facility] Rx# :[id number] Potassium Chloride 10 meq 300 In Water For Injection 1 100ml.bag @ 100 mls/hr IVPB Q1H RE[facility]NA Rx#: [id number] Output: Urine 900 750 210 Other: Voiding Method Indwelling Catheter Indwelling Catheter Indwelling Catheter Weight 63.503 kg 78.9 kg GENERAL: The patient is lying in bed and is not in acute distress. HENT: Trach. Supple neck NEUROLOGICAL: Limited. Drowsy but is awakeable to voice. She was following simple commands (with his daughter instructing things to do: Sticking of the tongue, we'll going bilateral toes, squeezing hands) Patient briefly open his eyes. Primary gaze is midline. The pupils are round equal reactive to light. The pupils are around 3 molars bilaterally. He was able to look to the right and left without any nystagmus or any difficulty. Did not appreciate any drastic facial weakness. Per the daughter patient has underlying left lower facial weakness from old stroke but there is limitation because of his cooperation Motor the strength is hard to assess because his cooperation is able to squeeze bilateral hands and wiggle both toes Plantars are mute bilaterally Results - Laboratory Findings CBC and BMP: 12/18/23 06:24 12/18/23 06:24 Abnormal Lab Findings: Abnormal Labs 12/17/23 12/17/23 12/17/23 01:48 01:48 01:48 WBC 13.8 H RBC 4.07 L Hgb 12.2 L Hct 35.5 L Neutrophils # 12.6 H Lymphocytes # 0.2 L Monocytes # PT INR APTT ABG pH ABG pCO2 ABG pO2 ABG O2 Saturation Sodium 130 L Potassium Chloride 96 L Carbon Dioxide 21 L Glucose 223 H POC Glucose (mg/dL) Plasma Lactic Acid Uche Calcium AST 88 H ALT 135 H Alkaline Phosphatase C-Reactive Protein Total Protein Albumin Procalcitonin Urine Protein Trace H Urine Glucose (UA) 1+ H Urine Ketones 1+ H Urine Blood Trace H Urine WBC 6 H Urine Bacteria Rare H Hyaline Casts 13 H Urine Mucus Rare H 12/17/23 12/17/23 12/17/23 01:48 09:33 15:18 WBC RBC Hgb Hct Neutrophils # Lymphocytes # Monocytes # PT INR APTT ABG pH ABG pCO2 ABG pO2 ABG O2 Saturation Sodium Potassium Chloride Carbon Dioxide Glucose POC Glucose (mg/dL) 189 H Plasma Lactic Acid Uche 3.2 H* Calcium AST ALT Alkaline Phosphatase C-Reactive Protein Total Protein Albumin Procalcitonin 0.43 H Urine Protein Urine Glucose (UA) Urine Ketones Urine Blood Urine WBC Urine Bacteria Hyaline Casts Urine Mucus 12/17/23 12/17/23 12/17/23 15:31 15:51 20:07 WBC RBC Hgb Hct Neutrophils # Lymphocytes # Monocytes # PT INR APTT ABG pH 7.48 H ABG pCO2 31 L ABG pO2 67 L ABG O2 Saturation Sodium Potassium Chloride Carbon Dioxide Glucose POC Glucose (mg/dL) 184 H 173 H Plasma Lactic Acid Uche Calcium AST ALT Alkaline Phosphatase C-Reactive Protein Total Protein Albumin Procalcitonin Urine Protein Urine Glucose (UA) Urine Ketones Urine Blood Urine WBC Urine Bacteria Hyaline Casts Urine Mucus 12/17/23 12/17/23 12/18/23 20:28 21:14 00:35 WBC 26.6 H RBC Hgb Hct Neutrophils # 24.4 H Lymphocytes # 0.6 L Monocytes # 1.2 H PT INR APTT ABG pH 7.50 H ABG pCO2 29 L ABG pO2 57 L* ABG O2 Saturation 92.0 L Sodium Potassium Chloride Carbon Dioxide Glucose POC Glucose (mg/dL) 204 H Plasma Lactic Acid Uche Calcium AST ALT Alkaline Phosphatase C-Reactive Protein Total Protein Albumin Procalcitonin Urine Protein Urine Glucose (UA) Urine Ketones Urine Blood Urine WBC Urine Bacteria Hyaline Casts Urine Mucus 12/18/23 12/18/23 12/18/23 00:35 06:24 06:24 WBC RBC Hgb Hct Neutrophils # Lymphocytes # Monocytes # PT 13.1 H INR 1.2 H APTT 41.5 H 31.7 H ABG pH ABG pCO2 ABG pO2 ABG O2 Saturation Sodium 133 L Potassium 3.3 L Chloride Carbon Dioxide 21 L Glucose 173 H POC Glucose (mg/dL) Plasma Lactic Acid Uche Calcium 8.3 L AST ALT 87 H Alkaline Phosphatase 129 H C-Reactive Protein 35.4 H Total Protein 5.8 L Albumin 2.9 L Procalcitonin Urine Protein Urine Glucose (UA) Urine Ketones Urine Blood Urine WBC Urine Bacteria Hyaline Casts Urine Mucus 12/18/23 12/18/23 06:24 06:24 WBC 25.3 H RBC Hgb 12.5 L Hct 38.5 L Neutrophils # 23.7 H Lymphocytes # 0.3 L Monocytes # PT INR APTT 31.6 H ABG pH ABG pCO2 ABG pO2 ABG O2 Saturation Sodium Potassium Chloride Carbon Dioxide Glucose POC Glucose (mg/dL) Plasma Lactic Acid Uche Calcium AST ALT Alkaline Phosphatase C-Reactive Protein Total Protein Albumin Procalcitonin Urine Protein Urine Glucose (UA) Urine Ketones Urine Blood Urine WBC Urine Bacteria Hyaline Casts Urine Mucus Assessment and Plan Assessment: This is a 78-year-old gentleman with history of throat cancer status post radi ation and permanent tracheostomy who about a week ago had the constriction of the esophagus and had dilation but it seems that the patient's been having difficulty swallowing feeling tired and he presented because of fever with altered mental status and a fall. Blood culture is positive for strep pneumo. Chest x-ray reveals pulmonary vascular congestion most likely related to congestive heart failure with superimposed infection and inflammatory process and there is concern for aspiration pneumonia. Today he was responding to his daughter and following simple commands. Also on my examination the patient was drowsy but is following simple commands. Altered mental status due to multiple factorial: Sepsis and it was felt the patient has an aspiration pneumonia and blood culture is Strep Pneumonia. As well as has component of metabolic encephalopathy. Initial CT of the head is negative for any acute or subacute ischemia---mentation improving. Probable aspiration pneumonia and blood culture is strep pneumo Pulmonary vascular congestion it was felt due to congestive heart failure New onset atrial fibrillation the patient is on heparin drip Slightly elevated ALT more than AST Recent Dilation of espophagus from constriction of espophagus about a week ago Chronic right MCA stroke History of throat cancer status post radiation and permanent tracheostomy about 18-20 years ago. Remote tobacco use Remote alcohol use Plan: I'll get a repeat CT of the head tomorrow. Will consider getting MRI the brain if patient continues to have any confusion or any focal deficits especially with a new onset atrial fibrillation. 2-D echo was ordered the [facility]ology team Sputum cultures ordered and is pending I spoke with the primary team and they're in agreement of holding a lumbar puncture since the patient mentation is improving and they have the underlying source of strep pneumo and felt aspiration pneumonia. Infection disease is on board Patient is on vancomycin and Zosyn. We'll defer the rest of the medical measure the primary and other specialists The plan was discussed with the patient's daughter and son-in-law was at bedside as well as the the primary attending and ICU nurse. Thank you for the consultation. Time with Patient: Greater than 30
--- NOTE | 2023-12-18 14:56 | CA ---
Transthoracic Echo Report Name: Noé Lima Age: 78 Gender: M : 1945 Exam Date: 12/18/2023 13:07 Exam Location: [facility] Ht (in): 68 Wt (lb): 173 Ordering Physician: Leigha Santa MD ([id number]) Attending/Referring Phys: [facility] Amaya Lyn RDCS Procedure CPT: Indications: afib Cardiac Hx: Technical Quality: Fair Contrast 1: Total Dose (mL): Contrast 2: Total Dose (mL): MEASUREMENTS (Male / Female) Normal Values 2D ECHO LV Diastolic Diameter PLAX 4.7 cm 4.2 - 5.9 / 3.9 - 5.3 cm LV Systolic Diameter PLAX 4.0 cm IVS Diastolic Thickness 1.1 cm 0.6 - 1.0 / 0.6 - 0.9 cm LVPW Diastolic Thickness 1.5 cm 0.6 - 1.0 / 0.6 - 0.9 cm LV Relative Wall Thickness 0.5 RV Internal Dim ED PLAX 2.5 cm LA Volume 88.1 cm??? 18 - 58 / 22 - 52 cm??? LA Volume Index 45.1 cm???/m??? 16 - 28 cm???/m??? M-MODE Aortic Root Diameter MM 2.2 cm LA Systolic Diameter MM 3.2 cm LA Ao Ratio MM 1.4 DOPPLER AV Peak Velocity 94.8 cm/s AV Peak Gradient 3.6 mmHg AV Mean Velocity 60.3 cm/s AV Mean Gradient 1.7 mmHg AV Velocity Time Integral 11.7 cm LVOT Peak Velocity 66.6 cm/s LVOT Peak Gradient 1.8 mmHg LVOT Velocity Time Integral 9.7 cm MV Area PHT 4.9 cm??? Mitral E Point Velocity 74.9 cm/s Mitral A Point Velocity 0.7 cm/s Mitral E to A Ratio 112.2 MV Deceleration Time 153.6 ms MV E' Velocity 8.3 cm/s Mitral E to MV E' Ratio 9.0 TR Peak Velocity 220.0 cm/s TR Peak Gradient 19.4 mmHg Right Atrial Pressure 15.0 mmHg Pulmonary Artery Systolic Pressu 34.4 mmHg Right Ventricular Systolic Press 34.4 mmHg FINDINGS Left Ventricle Left ventricular wall thickness normal. Reduced global left ventricular systolic function. Left ventricular ejection fraction is estimated at 30-35 %. Right Ventricle Normal right ventricular size and function. Right Atrium Normal right atrial size. Left Atrium Severely increased left atrial volume. Mildly increased left atrial area. Mitral Valve Structurally normal mitral valve. Moderate mitral annular calcification. Moderate mitral regurgitation. Aortic Valve Trileaflet aortic valve. No aortic valve stenosis or regurgitation. Mild aortic Sclerosis Tricuspid Valve Structurally normal tricuspid valve. Mild tricuspid regurgitation. Pulmonic Valve Pulmonic valve not well visualized. Pericardium Small to moderate pericardial effusion. Pericardial effusion located posteriorly. Aorta Normal size aortic root and proximal ascending aorta. CONCLUSIONS Technically difficult study. Definity ECHO contrast used for improved visualization of the endocardial borders (inadequate visualization of two or more contiguous segments). Moderate severe global hypokinesis Moderate mitral regurgitation with mild tricuspid regurgitation [id number] pericardial effusion Previewed by: Dr. Leigha Santa MD (Electronically Signed) Final Date: 18 December 2023 14:55
--- NOTE | 2023-12-18 15:36 | P.PN ---
Subjective Progress Note Date: 12/18/23 Principal diagnosis: Reason for follow-up with sepsis pneumonia and bacteremia Patient is a 78-year-old male with a past medical history significant for hypertension hypothyroidism, diabetes mellitus did have a history of throat cancer status post pulmonary tracheostomy tube placement and recently did have dilatation of his esophageal sphincter presented to hospital with multiple falls and weakness patient was febrile and now with evidence of strep pneumo bacteremi a. On today's evaluation that is 12/18/2023, the patient have improvement in his fever pattern last temperature has been 99.9 F around 4 AM no fever since then patient is hemodynamically stable not requiring pressor support is currently on a trach collar 90% FiO2 patient is sleepy and did not answer any question no vomiting diarrhea no changes reported by the nursing staff. Patient white count is 25.3 creatinine 0.90 blood culture with Streptococcus pneumoniae Objective - Vital Signs Vital signs: Vital Signs Temp 98.2 F 12/18/23 08:00 Pulse 109 H 12/18/23 13:00 Resp 28 H 12/18/23 13:00 BP 107/82 12/18/23 13:00 Pulse Ox 90 L 12/18/23 13:00 FiO2 90 12/18/23 13:00 Intake & Output 12/17/23 12/18/23 12/18/23 18:59 06:59 18:59 Intake Total 265.003 754.010 Output Total 200 1650 210 Balance -200 -1384.997 544.010 Weight 63.503 kg 78.9 kg Intake: IV 160 40 IV Fluid 160 40 Intake, IV Titration 105.003 714.010 Amount Diltiazem 125 mg In 81 Sodium Chloride 0.9% 100 ml @ 10 MG/HR 10 mls/hr IV .[id number] [facility] Rx#: [id number] Heparin Sod,Pork in 0.45% 24.003 114.010 NaCl 25,000 unit In 0.45 % NaCl 1 250ml.bag @ 12 UNITS/KG/HR 7.62 mls/hr IV .Q24H [facility] Rx#: [id number] Magnesium Sulfate-D5w Pmx 200 1 gm In Dextrose/Water 1 100ml.bag @ 100 mls/hr IVPB Q1H [facility] Rx#: [id number] Piperacillin-Tazobactam 3 100 .375 gm In Sodium Chloride 0.9% 100 ml @ 25 mls/hr IVPB Q8HR [facility] Rx# :[id number] Potassium Chloride 10 meq 300 In Water For Injection 1 100ml.bag @ 100 mls/hr IVPB Q1H [facility] Rx#: [id number] Output: Urine 200 1650 210 Uretheral (Rizzo) 200 Other: Voiding Method Indwelling Catheter Indwelling Catheter Indwelling Catheter - Exam GENERAL DESCRIPTION: An elderly male lying in bed in no distress RESPIRATORY SYSTEM: Unlabored breathing , decreased breath sounds at bases HEART: S1 S2 regular rate and rhythm , ABDOMEN: Soft , no tenderness EXTREMITIES: No edema feet - Labs CBC & Chem 7: 12/18/23 06:24 12/18/23 06:24 Labs: Abnormal Lab Results - Last 24 Hours (Table) 12/17/23 12/17/23 12/17/23 Range/Units 09:33 15:18 15:31 WBC (3.8-10.6) k/uL Hgb (13.0-17.5) gm/dL Hct (39.0-53.0) % Neutrophils # (1.3-7.7) k/uL Lymphocytes # (1.0-4.8) k/uL Monocytes # (0-1.0) k/uL PT (10.0-12.5) sec INR (<1.2) APTT (22.0-30.0) sec ABG pH (7.35-7.45) ABG pCO2 (35-45) mmHg ABG pO2 (83-108) mmHg ABG O2 Saturation (94-97) % Sodium (137-145) mmol/L Potassium (3.5-5.1) mmol/L Carbon Dioxide (22-30) mmol/L Glucose (74-99) mg/dL POC Glucose (mg/dL) 189 H 184 H (70-110) mg/dL Calcium (8.4-10.2) mg/dL ALT (4-49) U/L Alkaline Phosphatase (38-126) U/L C-Reactive Protein (<1.0) mg/dL Total Protein (6.3-8.2) g/dL Albumin (3.5-5.0) g/dL Procalcitonin 0.43 H (0.02-0.09) ng/mL 12/17/23 12/17/23 12/17/23 Range/Units 15:51 20:07 20:28 WBC (3.8-10.6) k/uL Hgb (13.0-17.5) gm/dL Hct (39.0-53.0) % Neutrophils # (1.3-7.7) k/uL Lymphocytes # (1.0-4.8) k/uL Monocytes # (0-1.0) k/uL PT (10.0-12.5) sec INR (<1.2) APTT (22.0-30.0) sec ABG pH 7.48 H 7.50 H (7.35-7.45) ABG pCO2 31 L 29 L (35-45) mmHg ABG pO2 67 L 57 L* (83-108) mmHg ABG O2 Saturation 92.0 L (94-97) % Sodium (137-145) mmol/L Potassium (3.5-5.1) mmol/L Carbon Dioxide (22-30) mmol/L Glucose (74-99) mg/dL POC Glucose (mg/dL) 173 H (70-110) mg/dL Calcium (8.4-10.2) mg/dL ALT (4-49) U/L Alkaline Phosphatase (38-126) U/L C-Reactive Protein (<1.0) mg/dL Total Protein (6.3-8.2) g/dL Albumin (3.5-5.0) g/dL Procalcitonin (0.02-0.09) ng/mL 12/17/23 12/18/23 12/18/23 Range/Units 21:14 00:35 00:35 WBC 26.6 H (3.8-10.6) k/uL Hgb (13.0-17.5) gm/dL Hct (39.0-53.0) % Neutrophils # 24.4 H (1.3-7.7) k/uL Lymphocytes # 0.6 L (1.0-4.8) k/uL Monocytes # 1.2 H (0-1.0) k/uL PT 13.1 H (10.0-12.5) sec INR 1.2 H (<1.2) APTT 41.5 H (22.0-30.0) sec ABG pH (7.35-7.45) ABG pCO2 (35-45) mmHg ABG pO2 (83-108) mmHg ABG O2 Saturation (94-97) % Sodium (137-145) mmol/L Potassium (3.5-5.1) mmol/L Carbon Dioxide (22-30) mmol/L Glucose (74-99) mg/dL POC Glucose (mg/dL) 204 H (70-110) mg/dL Calcium (8.4-10.2) mg/dL ALT (4-49) U/L Alkaline Phosphatase (38-126) U/L C-Reactive Protein (<1.0) mg/dL Total Protein (6.3-8.2) g/dL Albumin (3.5-5.0) g/dL Procalcitonin (0.02-0.09) ng/mL 12/18/23 12/18/23 12/18/23 Range/Units 06:24 06:24 06:24 WBC 25.3 H (3.8-10.6) k/uL Hgb 12.5 L (13.0-17.5) gm/dL Hct 38.5 L (39.0-53.0) % Neutrophils # 23.7 H (1.3-7.7) k/uL Lymphocytes # 0.3 L (1.0-4.8) k/uL Monocytes # (0-1.0) k/uL PT (10.0-12.5) sec INR (<1.2) APTT 31.7 H (22.0-30.0) sec ABG pH (7.35-7.45) ABG pCO2 (35-45) mmHg ABG pO2 (83-108) mmHg ABG O2 Saturation (94-97) % Sodium 133 L (137-145) mmol/L Potassium 3.3 L (3.5-5.1) mmol/L Carbon Dioxide 21 L (22-30) mmol/L Glucose 173 H (74-99) mg/dL POC Glucose (mg/dL) (70-110) mg/dL Calcium 8.3 L (8.4-10.2) mg/dL ALT 87 H (4-49) U/L Alkaline Phosphatase 129 H (38-126) U/L C-Reactive Protein 35.4 H (<1.0) mg/dL Total Protein 5.8 L (6.3-8.2) g/dL Albumin 2.9 L (3.5-5.0) g/dL Procalcitonin (0.02-0.09) ng/mL 12/18/23 12/18/23 Range/Units 06:24 12:22 WBC (3.8-10.6) k/uL Hgb (13.0-17.5) gm/dL Hct (39.0-53.0) % Neutrophils # (1.3-7.7) k/uL Lymphocytes # (1.0-4.8) k/uL Monocytes # (0-1.0) k/uL PT (10.0-12.5) sec INR (<1.2) APTT 31.6 H 37.0 H (22.0-30.0) sec ABG pH (7.35-7.45) ABG pCO2 (35-45) mmHg ABG pO2 (83-108) mmHg ABG O2 Saturation (94-97) % Sodium (137-145) mmol/L Potassium (3.5-5.1) mmol/L Carbon Dioxide (22-30) mmol/L Glucose (74-99) mg/dL POC Glucose (mg/dL) (70-110) mg/dL Calcium (8.4-10.2) mg/dL ALT (4-49) U/L Alkaline Phosphatase (38-126) U/L C-Reactive Protein (<1.0) mg/dL Total Protein (6.3-8.2) g/dL Albumin (3.5-5.0) g/dL Procalcitonin (0.02-0.09) ng/mL Microbiology - Last 24 Hours (Table) 12/17/23 03:05 Blood Culture Gram Stain - Preliminary Blood Blood Culture - Preliminary Streptococcus pneumoniae Assessment and Plan (1) Sepsis Current Visit: Yes Status: Acute Code(s): A41.9 - SEPSIS, UNSPECIFIED ORGANISM SNOMED Code(s): 14948146 (2) Pneumonia Current Visit: Yes Status: Acute Code(s): J18.9 - PNEUMONIA, UNSPECIFIED ORGANISM SNOMED Code(s): 929046038 (3) Bacteremia Current Visit: Yes Status: Acute Code(s): R78.81 - BACTEREMIA SNOMED Code(s): 9348170 Plan: 1patient presented to hospital with sepsis in this patient who did have a fever tachycardia elevated white count source is likely pneumonia concerning for possible aspiration pneumonitis in this patient recently did esophageal dilatation for stricture the initial chest x-ray reported no significant normality patient abdominal was soft on examination and urine was not significantly positive 2-patient did have Streptococcus pneumonia bacteremia source likely pneumonia 3blood cultures will be repeated document clearance of bacteremia 4continue vancomycin while waiting for sensitivity however discontinue Zosyn and start the patient on Rocephin Family at bedside multiple questions answered Dictation was produced using [employer] dictation software. please excuse any grammatical, word or spelling errors. Time with Patient: Less than 30
[2023-12-18 17:12] LABS: Glucose,Whole Blood 131 mg/dL (70-110)
[2023-12-18] MEDS: FUROSEMIDE 10 MG/ML 4 ML VIAL IV SCH (20:26)
[2023-12-19 02:29] LABS: HCT 37.1 % (39.0-53.0); HGB 12.2 gm/dL (13.0-17.5); MCH 29.1 pg (25.0-35.0); MCHC 32.9 g/dL (31.0-37.0); MCV 88.5 fL (80.0-100.0); Mean Platelet Volume 7.8; Platelet Count 355 k/uL (150-450); RBC 4.19 m/uL (4.30-5.90); RDW 13.2 % (11.5-15.5); WBC 24.9 k/uL (3.8-10.6)
[2023-12-19 02:36] LABS: African American GFR (CKD) >90 (>60 ml/min/1.73 sqM); Anion Gap 11 mmol/L; Blood Urea Nitrogen 21 mg/dL (9-20); Calcium 8.1 mg/dL (8.4-10.2); Carbon Dioxide 21 mmol/L (22-30); Chloride 103 mmol/L (98-107); Glucose 147 mg/dL (74-99); Non-African American GFR(CKD) 84 (>60 ml/min/1.73 sqM); Potassium 3.3 mmol/L (3.5-5.1); Sodium 135 mmol/L (137-145)
[2023-12-19] MEDS: POTASSIUM CHLORIDE 10 MEQ in WATER FOR INJECTION 1 100ML.BAG IVPB SCH ×3 (02:51→20:07)
[2023-12-19 04:13] LABS: Glucose,Whole Blood 156 mg/dL (70-110)
--- NOTE | 2023-12-19 06:43 | CT ---
EXAMINATION TYPE: CT brain wo con CT DLP: 1242.3 mGycm, Automated exposure control for dose reduction was used. DATE OF EXAM: 12/19/2023 6:28 AM COMPARISON: 01/28/1620 12/17/2023.. CLINICAL INDICATION:Male, 78 years old with history of Lethargy, LETHARGY. PT AMS TECHNIQUE: Brain: Axial CT images of the brain were obtained with coronal and sagittal reformats created and rev iewed. Contrast used: None. Oral contrast used: None. FINDINGS: Brain: Extra-axial spaces: No abnormal extra-axial fluid collections. Ventricular system: Dilatation in proportion to cerebral atrophy. Cerebral parenchyma: More prominent lower density area within the left basal ganglia Encephalomalacia of the right frontal lobe and temporal lobe from prior injury. Cerebral atrophy. No acute intraparen chymal hemorrhage or mass effect. The cortes-white junction is well differentiated. Cerebellum: Unremarkable. Mass effect: No evidence of midline shift. Intracranial vasculature: unremarkable Soft tissues: Normal. Calvarium/osseous structures: No depressed skull fracture. Paranasal sinuses and mastoid air cells: Moderate left paranasal sinus disease with air-fluid level a gain seen. Scattered other paranasal sinus disease. Visualized orbits: Bilateral aphakia IMPRESSION: 1. More prominence of the white matter changes in left basal ganglia. Correlate with MRI for acute/s ubacute CVA. 2. Prior injury of the right MCA territory.
[2023-12-19] MEDS: VANCOMYCIN TROUGH DUE 1 EACH MISC MISCELLANE ONE (06:44)
--- NOTE | 2023-12-19 06:50 | XR ---
EXAMINATION TYPE: XR chest 1V DATE OF EXAM: 12/19/2023 5:44 AM CLINICAL INDICATION:Male, 78 years old with history of pneumonia; COMPARISON: Chest radiographs from 12/18/2023. TECHNIQUE: XR chest 1V Frontal view of the chest. FINDINGS: Lungs/Pleura: Multifocal airspace opacities. No evidence of pneumothorax or pleural effusion. Pulmonary vascularity: Unremarkable. Heart/mediastinum: Cardiomediastinal silhouette is unremarkable. Musculoskeletal: Degenerative changes of the shoulder joints. IMPRESSION: Multifocal airspace opacities concerning for pneumonia.
--- NOTE | 2023-12-19 08:25 | P.PN ---
Subjective Progress Note Date: 12/19/23 PROGRESS NOTE The patient is a 78-year-old male status post tracheostomy with a history of hypertension, diabetes, prior throat malignancy who underwent esophageal stricture dilatation recently and presented to the hospital with symptoms of progressive fatigue having problem with his bowel movement. Yesterday he went in atrial fibrillation with rapid ventricle response, became less responsive and was transferred to the ICU. He continues to be in atrial fibrillation with controlled ventricular response at this time. His chest x-ray is suggestive of aspiration pneumonia. According to the note he was awake and alert on presentation, is quite somnolent not answering questions at this time. Review ing his records he has a prior history of hypertension and diabetes. His procalcitonin is elevated and he has significant leukocytosis. He had an echocardiogram in 2016 that showed a preserved systolic function with mild mitral and tricuspid regurgitation. He has a history of hypertension, he is nondiabetic December 18 The patient is somnolent, continues to be in atrial fibrillation with predomina ntly controlled ventricular response. His echocardiogram showed impairment in the left ventricle systolic function. He is less responsive today. His chest x-ray continues to show signs of pneumonia probably aspiration pneumonia. He continues to be on IV Cardizem and IV heparin. He is receiving IV metoprolol. His urine output is stable. Medications: IV Cardizem, ceftriaxone, furosemide 40 mg twice daily, IV heparin, metoprolol 5 mg IV as needed PHYSICAL EXAMINATION: Not responsive to verbal stimuli blood pressure 145/100 heart rate 90 LUNGS: Bilateral rhonchi, tracheostomy HEART: Irregular rate and rhythm, S1, S2. No S3. Systolic ejection murmur ABDOMEN: Soft, nontender, no organomegaly EXTREMETIES: No edema LAB: WBC 24.9, hemoglobin 12.2, potassium 3.3, BUN 21, creatinine 0.88 IMPRESSION: 1. Sepsis with pneumonia and possible aspiration pneumonia 2. Atrial fibrillation, rate controlled 3. Change in mental status probably related to the infectious process 4. Cardiomyopathy, new since 2016 could be worsened by the infection 5. History of throat malignancy and permanent tracheostomy 6. Status post recent esophageal dilatation PLAN: 1. Continue IV heparin and beta-henri in addition to calcium show henri IV 2. Treatment of his pneumonia 3. Depending on his blood pressure consider adding AUTUMN inhibitor 4. Prognosis is guarded Objective - Vital Signs Vital signs: Vital Signs Temp 99.6 F 12/19/23 04:00 Pulse 92 12/19/23 07:00 Resp 12 12/19/23 07:00 BP 145/103 12/19/23 07:00 Pulse Ox 91 L 12/19/23 07:37 FiO2 90 12/19/23 07:37 Intake & Output 12/18/23 12/19/23 12/19/23 18:59 06:59 18:59 Intake Total 1076.177 423.706 10 Output Total 1100 1010 30 Balance -23.823 -586.294 -20 Weight 82.5 kg Intake: IV 100 120 10 IV Fluid 100 120 10 Intake, IV Titration 976.177 303.706 Amount Diltiazem 125 mg In 112.167 121.5 Sodium Chloride 0.9% 100 ml @ 10 MG/HR 10 mls/hr IV .[id number] [facility] Rx#: [id number] Heparin Sod,Pork in 0.45% 114.010 182.206 NaCl 25,000 unit In 0.45 % NaCl 1 250ml.bag @ 12 UNITS/KG/HR 7.62 mls/hr IV .Q24H [facility] Rx#: [id number] Magnesium Sulfate-D5w Pmx 200 1 gm In Dextrose/Water 1 100ml.bag @ 100 mls/hr IVPB Q1H [facility] Rx#: [id number] Piperacillin-Tazobactam 3 100 .375 gm In Sodium Chloride 0.9% 100 ml @ 25 mls/hr IVPB Q8HR [facility] Rx# :[id number] Potassium Chloride 10 meq 400 In Water For Injection 1 100ml.bag @ 100 mls/hr IVPB Q1H [facility] Rx#: [id number] 2 gm In 50 Sodium Chloride 0.9% 50 ml @ 100 mls/hr IVPB Q24HR [facility] Rx#:[id number] Output: Urine 1100 1010 30 Other: Voiding Method Indwelling Catheter Indwelling Catheter - Labs CBC & Chem 7: 12/19/23 02:03 12/19/23 02:03 Labs: Abnormal Lab Results - Last 24 Hours (Table) 12/18/23 12/18/23 12/18/23 Range/Units 06:24 12:22 17:10 WBC (3.8-10.6) k/uL RBC (4.30-5.90) m/uL Hgb (13.0-17.5) gm/dL Hct (39.0-53.0) % APTT 37.0 H (22.0-30.0) sec Sodium (137-145) mmol/L Potassium (3.5-5.1) mmol/L Carbon Dioxide (22-30) mmol/L BUN (9-20) mg/dL Glucose (74-99) mg/dL POC Glucose (mg/dL) 131 H (70-110) mg/dL Calcium (8.4-10.2) mg/dL Procalcitonin 0.84 H (0.02-0.09) ng/mL 12/18/23 12/18/23 12/19/23 Range/Units 19:18 19:18 02:03 WBC (3.8-10.6) k/uL RBC (4.30-5.90) m/uL Hgb (13.0-17.5) gm/dL Hct (39.0-53.0) % APTT 35.2 H (22.0-30.0) sec Sodium 135 L (137-145) mmol/L Potassium 3.1 L 3.3 L (3.5-5.1) mmol/L Carbon Dioxide 21 L (22-30) mmol/L BUN 21 H (9-20) mg/dL Glucose 147 H (74-99) mg/dL POC Glucose (mg/dL) (70-110) mg/dL Calcium 8.1 L (8.4-10.2) mg/dL Procalcitonin (0.02-0.09) ng/mL 12/19/23 12/19/23 12/19/23 Range/Units 02:03 02:03 04:11 WBC 24.9 H (3.8-10.6) k/uL RBC 4.19 L (4.30-5.90) m/uL Hgb 12.2 L (13.0-17.5) gm/dL Hct 37.1 L (39.0-53.0) % APTT 36.1 H (22.0-30.0) sec Sodium (137-145) mmol/L Potassium (3.5-5.1) mmol/L Carbon Dioxide (22-30) mmol/L BUN (9-20) mg/dL Glucose (74-99) mg/dL POC Glucose (mg/dL) 156 H (70-110) mg/dL Calcium (8.4-10.2) mg/dL Procalcitonin (0.02-0.09) ng/mL Microbiology - Last 24 Hours (Table) 12/18/23 17:00 Gram Stain - Preliminary Sputum 12/17/23 03:05 Blood Culture Gram Stain - Preliminary Blood Blood Culture - Preliminary Streptococcus pneumoniae
--- NOTE | 2023-12-19 09:29 | P.PN ---
Subjective Progress Note Date: 12/19/23 Principal diagnosis: Fever, weakness. This is a 78-year-old male patient with a known history of hypertension, hypothyroidism, diabetes mellitus and previous throat cancer status post permanent tracheostomy tube placement. Proximally 1 week ago at [facility] he had undergone dilatation for esophageal stricture. Since that time he has not had a bowel movement and has had difficulty in urination. Yesterday he was having significant weakness and felt 2 times. He also was found to have a fever. Was brought in to the hospital here early this morning. White count 13.8. Hemoglobin 12.2. Sodium 130. Potassium 4.4. Bicarb 21. BUN 16. Creatinine 0.81. Glucose 223. Initial lactic acid 3.2, currently 1.5. AST 88. ALT 135. Urinalysis with trace protein 1+ glucose. 1+ ketones high WBCs and rare bacteria. Viral screen was negative. Chest x-ray revealed cardiomegaly but no acute cardiopulmonary process. He is seen today in consultation in the emergency department. He is currently sitting up on the stretcher. Awake and alert. Denies any worsening shortness of breath, cough or congestion. His main complaint was of a headache which seems to have improved. He has been initiated on ceftriaxone and azithromycin. Normal saline at 130 MLS per hour. He received 1500 mL of fluid resuscitation with normal saline. He received Tylenol for his fever and is currently afebrile. Hemodynamically stable. Maintaining O2 saturation in the 90s on room air. The patient is seen today December 18, 2023 in follow-up in the intensive care unit. Yesterday, as the day progressed, he became more obtunded and unresponsive. CT scan of the brain revealed no acute intracranial abnormality. There is evidence of atrophy and chronic microvascular ischemic white matter changes. Remote right MCA territory infarct. Air-fluid level in the left maxillary sinus, possible acute versus chronic sinus disease. CT scan of the chest and abdomen revealed a nonobstructing left intrarenal calculi. Mild hepatomegaly. Cholelithiasis. Tracheostomy tube in place. Mucus in the distal trachea. Possible aspiration. Mild cardiomegaly with lung findings suggesting of moderate congestive heart failure. Cannot rule out underlying infection. White count 25.3. Hemoglobin 12.5. Platelets 391. Sodium 133. Potassium 3.3. Bicarb 21. BUN 19. Creatinine 0.90. Glucose 173. Arterial blood gases revealed a PaO2 of 57, pCO2 of 29 and a pH of 7.50 on 60% FiO2. He is currently on trach collar at 90% FiO2. Today's chest x-ray reveals cardiomegaly with worsening pulmonary vascular congestion, bilateral perihilar and diffuse bilateral pulmonary interstitial and airspace opacities. Suggestive of moderate to severe CHF with superimposed infectious/inflammatory process. Small to moderate right pleural effusion. Small left pleural effusion. Blood cultures positive for Streptococcus pneumoniae. He is currently on vancomycin and Zosyn. He is also in atrial fibrillation with a rapid ventricular response. He is on a Cardizem drip at 10 mg/h. Heparin drip per weight-based protocol. Normal saline at 20 mL/h. He received Lasix 40 mg IVP x 1. Currently in a -1.5 L balance. Progress note dated December 19, 2023. The patient is seen in follow-up, in room 260. The patient had a change in his mental status, and had another CT scan of the brain, showing a possible acute/subacute, CVA. Neurology is seeing this patient. He does remain in atrial fibrillation. The patient is on a trach collar at 90%, Cardizem at 10 mg an hour, IV heparin, and saline at 10 cc an hour. He continues on Rocephin and vancomycin. Current laboratory data includes a white count 24.9, hemoglobin 12.2, hematocrit 37.1, and a platelet count of 355,000. His PTT is 36.1. Sod ium 135, potassium 3.3, chlorides 103, CO2 21, anion gap 11, BUN 21, and creatinine 0.88. Glucose is 156. His calcium is 8.1. Blood cultures are positive for Streptococcus pneumoniae. The chest x-ray shows bilateral patchy airspace disease, and fluid in the minor fissure. The patient's procalcitonin level was 0.84. The N-terminal proBNP was 29,800. Objective - Vital Signs Vital signs: Vital Signs Temp 98.5 F 12/19/23 08:00 Pulse 96 12/19/23 08:30 Resp 21 12/19/23 08:30 BP 115/89 12/19/23 08:30 Pulse Ox 89 L 12/19/23 08:30 FiO2 90 12/19/23 08:00 Intake & Output 12/18/23 12/19/23 12/19/23 18:59 06:59 18:59 Intake Total 1076.177 423.706 10 Output Total 1100 1010 30 Balance -23.823 -586.294 -20 Weight 82.5 kg Intake: IV 100 120 10 IV Fluid 100 120 10 Intake, IV Titration 976.177 303.706 Amount Diltiazem 125 mg In 112.167 121.5 Sodium Chloride 0.9% 100 ml @ 10 MG/HR 10 mls/hr IV .[id number] [facility] Rx#: [id number] Heparin Sod,Pork in 0.45% 114.010 182.206 NaCl 25,000 unit In 0.45 % NaCl 1 250ml.bag @ 12 UNITS/KG/HR 7.62 mls/hr IV .Q24H [facility] Rx#: [id number] Magnesium Sulfate-D5w Pmx 200 1 gm In Dextrose/Water 1 100ml.bag @ 100 mls/hr IVPB Q1H [facility] Rx#: [id number] Piperacillin-Tazobactam 3 100 .375 gm In Sodium Chloride 0.9% 100 ml @ 25 mls/hr IVPB Q8HR [facility] Rx# :[id number] Potassium Chloride 10 meq 400 In Water For Injection 1 100ml.bag @ 100 mls/hr IVPB Q1H [facility] Rx#: [id number] cefTRIAXone 2 gm In 50 Sodium Chloride 0.9% 50 ml @ 100 mls/hr IVPB Q24HR [facility] Rx#:[id number] Output: Urine 1100 1010 30 Other: Voiding Method Indwelling Catheter Indwelling Catheter Indwelling Catheter - Exam No acute distress, poorly responsive. In no acute distress. No respiratory distress. HEENT examination is grossly unremarkable. Neck supple. Full range of motion. No adenopathy thyromegaly or neck vein distention. A tracheotomy is noted. Trach collar is noted as well. Cardiovascular examination reveals an irregular rhythm and rate. S1-S2 normal. No S3 or S4. No discernible murmur noted. Heart sounds are distant. Heart rate 96 bpm. The patient continues in atrial fibrillation. Lungs reveal scattered bilateral rhonchi and crackles. There are no wheezes. Breath sounds are equal bilaterally. Saturations are in the 90 to 91% range, on the 90% trach collar. Abdomen soft and without bowel sounds. No masses or tenderness. Extremities are intact. No cyanosis clubbing or edema. Skin is without rash or lesion. Neurologic examination reveals the patient to be poorly responsive. - Labs CBC & Chem 7: 12/19/23 02:03 12/19/23 02:03 Labs: Abnormal Lab Results - Last 24 Hours (Table) 12/18/23 12/18/23 12/18/23 Range/Units 06:24 12:22 17:10 WBC (3.8-10.6) k/uL RBC (4.30-5.90) m/uL Hgb (13.0-17.5) gm/dL Hct (39.0-53.0) % APTT 37.0 H (22.0-30.0) sec Sodium (137-145) mmol/L Potassium (3.5-5.1) mmol/L Carbon Dioxide (22-30) mmol/L BUN (9-20) mg/dL Glucose (74-99) mg/dL POC Glucose (mg/dL) 131 H (70-110) mg/dL Calcium (8.4-10.2) mg/dL Procalcitonin 0.84 H (0.02-0.09) ng/mL 12/18/23 12/18/23 12/19/23 Range/Units 19:18 19:18 02:03 WBC (3.8-10.6) k/uL RBC (4.30-5.90) m/uL Hgb (13.0-17.5) gm/dL Hct (39.0-53.0) % APTT 35.2 H (22.0-30.0) sec Sodium 135 L (137-145) mmol/L Potassium 3.1 L 3.3 L (3.5-5.1) mmol/L Carbon Dioxide 21 L (22-30) mmol/L BUN 21 H (9-20) mg/dL Glucose 147 H (74-99) mg/dL POC Glucose (mg/dL) (70-110) mg/dL Calcium 8.1 L (8.4-10.2) mg/dL Procalcitonin (0.02-0.09) ng/mL 12/19/23 12/19/23 12/19/23 Range/Units 02:03 02:03 04:11 WBC 24.9 H (3.8-10.6) k/uL RBC 4.19 L (4.30-5.90) m/uL Hgb 12.2 L (13.0-17.5) gm/dL Hct 37.1 L (39.0-53.0) % APTT 36.1 H (22.0-30.0) sec Sodium (137-145) mmol/L Potassium (3.5-5.1) mmol/L Carbon Dioxide (22-30) mmol/L BUN (9-20) mg/dL Glucose (74-99) mg/dL POC Glucose (mg/dL) 156 H (70-110) mg/dL Calcium (8.4-10.2) mg/dL Procalcitonin (0.02-0.09) ng/mL Microbiology - Last 24 Hours (Table) 12/18/23 17:00 Gram Stain - Preliminary Sputum 12/17/23 03:05 Blood Culture Gram Stain - Preliminary Blood Blood Culture - Preliminary Streptococcus pneumoniae Assessment and Plan Assessment: Altered mental status secondary to bacteremia and possible acute/subacute CVA. Bacteremia secondary to Streptococcus pneumoniae. Febrile illness secondary to above. Acute hypoxemic respiratory failure secondary to suspected systolic versus diastolic congestive heart failure, and possible aspiration pneumonia. Respiratory alkalosis secondary to above. Atrial fibrillation with rapid ventricular response. Recent esophageal dilatation at [facility] 1 week ago. History of throat cancer, remains with tracheotomy. Hypothyroidism. Hypertension. Diabetes mellitus. Former cigar smoker. Plan: Plan dated December 19, 2023. The patient's blood cultures were positive for Streptococcus pneumoniae. The patient had an elevated N-terminal proBNP, and elevated procalcitonin level. His acute hypoxemic respiratory failure, is likely multifactorial, part related to fluid overload/CHF, as well as bilateral pneumonia. The patient continues on Rocephin and vancomycin. Labs, x-rays and medications are reviewed. The patient remains on Cardizem at 10 mg an hour for his atrial fibrillation, as well as IV heparin. Neurology is seeing this patient as well. We will continue to follow make recommendations along the way. Prognosis is guarded. CODE STATUS has been addressed. Time with Patient: Greater than 30
[2023-12-19] MEDS: levETIRAcetam IV 500 MG/5 ML VIAL IVP STA (09:37)
[2023-12-19] MEDS: LORazepam 2 MG/ML INJ ONE (10:46)
[2023-12-19] MEDS: LORazepam 2 MG/ML INJ IV STA ×2 (10:46→11:16)
--- NOTE | 2023-12-19 13:26 | P.PN ---
Subjective Progress Note Date: 12/19/23 The patient mentation declined overnight. The patient had CT head whichs revealed more prominence of white matter changes in left basal ganglia. Correlate with MRI for acute/subacte CVA. Today in the morning, the nurse notified me that patient had fixed left gaze preference and severely confused. There no jerking of extremities per nurse or any clinical seizure activity. He was given as result Keppra 1500mg IV once. Objective - Vital Signs Vital signs: Vital Signs Temp 98.5 F 12/19/23 12:00 Pulse 112 H 12/19/23 12:00 Resp 18 12/19/23 12:00 BP 130/65 12/19/23 12:00 Pulse Ox 91 L 12/19/23 12:00 FiO2 90 12/19/23 12:00 Intake & Output 12/18/23 12/19/23 12/19/23 18:59 06:59 18:59 Intake Total 1076.177 423.706 199.788 Output Total 1100 1010 470 Balance -23.823 -586.294 -270.212 Weight 82.5 kg Intake: IV 100 120 40 IV Fluid 100 120 40 Intake, IV Titration 976.177 303.706 159.788 Amount Diltiazem 125 mg In 112.167 121.5 Sodium Chloride 0.9% 100 ml @ 10 MG/HR 10 mls/hr IV .[id number] [facility] Rx#: [id number] Heparin Sod,Pork in 0.45% 114.010 182.206 109.788 NaCl 25,000 unit In 0.45 % NaCl 1 250ml.bag @ 12 UNITS/KG/HR 7.62 mls/hr IV .Q24H [facility] Rx#: [id number] Magnesium Sulfate-D5w Pmx 200 1 gm In Dextrose/Water 1 100ml.bag @ 100 mls/hr IVPB Q1H [facility] Rx#: [id number] Piperacillin-Tazobactam 3 100 .375 gm In Sodium Chloride 0.9% 100 ml @ 25 mls/hr IVPB Q8HR [facility] Rx# :[id number] Potassium Chloride 10 meq 400 In Water For Injection 1 100ml.bag @ 100 mls/hr IVPB Q1H [facility] Rx#: [id number] cefTRIAXone 2 gm In 50 50 Sodium Chloride 0.9% 50 ml @ 100 mls/hr IVPB Q24HR [facility] Rx#:[id number] Output: Urine 1100 1010 470 Other: Voiding Method Indwelling Catheter Indwelling Catheter Indwelling Catheter - Exam General: Lying in bed and is not in acute distress. HENT: Has trach Neuro: Very limited. The patient is stupor. Not following commands or verbalizing. Has eyes closed. The primary gaze is left gaze preference but was breakable to head movement but would return back. No facial weakness. Motor: Strength is unable to assess individual muscle strength because of his overall condition. At time he would has left hand movement spontaneously or proximally right upper extremity. Some of the work-up during this hospital visit consisted of: On initial presentation temperature is 101.6F and currently it was controlled. White blood cell on initial presentation was 13.8 and the is trended up most recent is 25.3 predominantly neutrophilic. Ammonia level is 9 TSH is 1.090 Sodium is 133, calcium is 8.3, phosphorus 3.2 magnesium 2.0 Blood cultures positive for strep pneumo. Chest x-rays reported as cardiomegaly. Worsening pulmonary vascular congestion, bilateral peripheral and diffuse bilateral pulmonary interstitial and airspace opacity may relate to moderate to severe congestive heart failure was superimposed infection/inflammatory process also considered CT of the head is reported as no CT evidence of acute intracranial abnormality. Atrophy and chronic microvascular ischemic white matter changes. Remote right MCA infarct. Air-fluid level left maxillary sinus correlates for acute or chronic sinus disease. Repeat CT head: revealed more prominence of white matter changes in left basal ganglia. Correlate with MRI for acute/subacte CVA.Prior injury of the right MCA territory. 2D echo: It is reported as technically difficult study. Definity ECho contrast used for improved visualization of the endocardial borders. Moderate severe global hypokinesis. Moderate mitral regurgitation with mild tricuspid regurgitation. [id number] pericardial effusion. - Labs CBC & Chem 7: 12/19/23 02:03 12/19/23 09:52 Labs: Abnormal Lab Results - Last 24 Hours (Table) 12/18/23 12/18/23 12/18/23 Range/Units 06:24 12:22 17:10 WBC (3.8-10.6) k/uL RBC (4.30-5.90) m/uL Hgb (13.0-17.5) gm/dL Hct (39.0-53.0) % APTT 37.0 H (22.0-30.0) sec Sodium (137-145) mmol/L Potassium (3.5-5.1) mmol/L Carbon Dioxide (22-30) mmol/L BUN (9-20) mg/dL Glucose (74-99) mg/dL POC Glucose (mg/dL) 131 H (70-110) mg/dL Calcium (8.4-10.2) mg/dL Procalcitonin 0.84 H (0.02-0.09) ng/mL 12/18/23 12/18/23 12/19/23 Range/Units 19:18 19:18 02:03 WBC (3.8-10.6) k/uL RBC (4.30-5.90) m/uL Hgb (13.0-17.5) gm/dL Hct (39.0-53.0) % APTT 35.2 H (22.0-30.0) sec Sodium 135 L (137-145) mmol/L Potassium 3.1 L 3.3 L (3.5-5.1) mmol/L Carbon Dioxide 21 L (22-30) mmol/L BUN 21 H (9-20) mg/dL Glucose 147 H (74-99) mg/dL POC Glucose (mg/dL) (70-110) mg/dL Calcium 8.1 L (8.4-10.2) mg/dL Procalcitonin (0.02-0.09) ng/mL 12/19/23 12/19/23 12/19/23 Range/Units 02:03 02:03 04:11 WBC 24.9 H (3.8-10.6) k/uL RBC 4.19 L (4.30-5.90) m/uL Hgb 12.2 L (13.0-17.5) gm/dL Hct 37.1 L (39.0-53.0) % APTT 36.1 H (22.0-30.0) sec Sodium (137-145) mmol/L Potassium (3.5-5.1) mmol/L Carbon Dioxide (22-30) mmol/L BUN (9-20) mg/dL Glucose (74-99) mg/dL POC Glucose (mg/dL) 156 H (70-110) mg/dL Calcium (8.4-10.2) mg/dL Procalcitonin (0.02-0.09) ng/mL 12/19/23 12/19/23 Range/Units 09:52 09:52 WBC (3.8-10.6) k/uL RBC (4.30-5.90) m/uL Hgb (13.0-17.5) gm/dL Hct (39.0-53.0) % APTT 41.1 H (22.0-30.0) sec Sodium (137-145) mmol/L Potassium 3.4 L (3.5-5.1) mmol/L Carbon Dioxide (22-30) mmol/L BUN (9-20) mg/dL Glucose (74-99) mg/dL POC Glucose (mg/dL) (70-110) mg/dL Calcium (8.4-10.2) mg/dL Procalcitonin (0.02-0.09) ng/mL Microbiology - Last 24 Hours (Table) 12/18/23 17:00 Gram Stain - Preliminary Sputum 12/17/23 03:05 Blood Culture Gram Stain - Preliminary Blood Blood Culture - Preliminary Streptococcus pneumoniae Assessment and Plan Assessment: This is a 78-year-old gentleman with history of throat cancer status post radiation and permanent tracheostomy who about a week ago had the constriction of the esophagus and had dilation but it seems that the patient's been having difficulty swallowing feeling tired and he presented because of fever with altered mental status and a fall. Blood culture is positive for strep pneumo. Chest x-ray reveals pulmonary vascular congestion most likely related to congestive heart failure with superimposed infection and inflammatory process and there is concern for aspiration pneumonia. Today mentation is worse with left gaze prerence. Altered mental status due to multiple factorial: Sepsis and it was felt the patient has an aspiration pneumonia and blood culture is Strep Pneumonia. As well as has component of metabolic encephalopathy. Possible has acute/subacute CVA on repeat CT head and felt left basal ganglia. Rule out seizure vs stroke in different territory resulting in left gaze preference. Probable aspiration pneumonia and blood culture is strep pneumo Pulmonary vascular congestion it was felt due to congestive heart failure New onset atrial fibrillation the patient is on heparin drip Slightly elevated ALT more than AST Moderate to severe global hypokinesis on 2D echo Recent Dilation of espophagus from constriction of espophagus about a week ago Chronic right MCA stroke History of throat cancer status post radiation and permanent tracheostomy about 18-20 years ago. Remote tobacco use Remote alcohol use Plan: I ordered an MRI Brain STAT but will not be completed until tomorrow A.M. For his concern for his acute/subacute CVA, he is currently on heparin drip. I started Lipitor 40mg qhs. Ordered carotid duplex and lipid panel. Continue neuro checks PT, OT and FACTORY HELPER are consulted. I ordered a STAT EEG Patient is given Keppra 1500mg IV once in morning for concern of seizure (left gaze preference with some body jerk). Infection disease is on board. Patient is on vancomycin and Ceftriaxone 2gm every 24 hours. I changed Ceftriaxone to 2gm every 12 hours for meningencephatic coverage. I spoke with I.D. and recommend no need for additional antibiotic or viral since know source of infection (Strep pneumo). Unable to obtain immediate lumbar puncture since patient is on heparin drip. Will defer modification of medication to I.D. team. We'll defer the rest of the medical measure the primary and other specialists UPDATE: An EEG was obtain and patient showed sharply contoured activity over the right temporal that was 8-9 hertz and time faster frequency that was constant throughout the study. At time it seems semirhythmic. It was suppressed briefly with Ativan 2mg then reappered within 2 minutes and then patient was given 2mg of Ativan and it resolved. Otherwise, background is slow. Regarding sharply contoured activity over the right temporal that was constant but no evolution, I am concerned about focal status epilepticus. I started the patient on Keppra 1gm IV every 12 hours I recommend transfer for escalation of care for prolonged EEG to assess if patient has subclinical seizures. But if family declines will get a prolonged EEG tomorrow. If patient does not get transferred then will get a prolonged EEG in our facility. I had lengthy discussion with patient's son (Tin) and patient's ENT via phone and they decided for patient to be transferred for escalation of care. I had multiple conversation with primary and ICU nurse. I have spend a total of 90 minute on care. Time with Patient: Greater than 30
--- NOTE | 2023-12-19 13:26 | P.PN ---
Subjective Progress Note Date: 12/19/23 * 78 year old male with PMH of hypertension, hypothyroidism, diabetes mellitus and previous throat cancer s/p radiation and permanent tracheostomy. * Approximately 1 week ago at [facility] he underwent EGD with dilation for his longstanding esophageal stricture. He has been constipated since this procedure and had been having difficulty urinating, but denies any fevers or respiratory issues earlier in the week. Pt's reports she noticed he fell two times and hit his head and was noted with fever at home so was brought in to the hospital. * On presentation WBC 13.8 Hemoglobin 12.2, Na 130 K 4.4. BUN 16. Creatinine 0.81. Glucose 223. Initial lactic acid 3.2, currently 1.5. LFTs are u nremarkable. Urinalysis with trace protein 1+ glucose. 1+ ketones high WBCs and rare bacteria. * Viral screen was negative. Chest x-ray revealed cardiomegaly, no acute cardiopulmonary process. Pt with increasing O2 requirements subsequently with 40% FiO2 via trach collar in addition to tachycardia. * 12/18/2023. Patient seen and evaluated bedside, patient in medical ICU, patient on oxygen through trach collar 90% FiO2 10 L * 12/18: Patient seen and evaluated bedside, care plan discussed with neurology at bedside, EEG noted epileptiform activity noted patient was given loading dose of Keppra and was given Ativan, concern for recurrent seizure hence requested to transfer to [facility], transfer center contacted at [facility] patient was noted to go to medical ICU. Will coordinate regarding transfer, and for excepting physician. Continue patient on IV Rocephin dose increased to 2 g twice daily. PHYSICAL EXAMINATION: GENERAL: The patient is alert and oriented x 0 , ill appearance, trach in place HEENT: Pupils constricted, eyes left-sided deviation, suspect neglect CARDIOVASCULAR: S1 and S2 present. Irregular tachycardia noted PULMONARY: Creased breath sounds bilateral laterally, trach mask in place ABDOMEN: Soft, nontender, nondistended, normoactive bowel sounds. No palpable organomegaly. MUSCULOSKELETAL: No joint swelling or deformity. EXTREMITIES: No cyanosis, clubbing, or pedal edema. NEUROLOGICAL: DISoriented, neurological exam limited Assessment and plan * Acute hypoxemic respiratory failure with aspiration pneumonia * Sepsis secondary to pneumonia * Strep Pneumonia bacteremia * SuspecT acute CVA involving left basal ganglia * Acute encephalopathy multifactorial ischemic, metabolic * New onset seizure * Atrial fibrillation with rapid ventricle response * History of throat cancer s/p tracheostomy in place * Acute metabolic encephalopathy * esophageal stricture s/p dilatation prior to admission 1 week ago * In regards to sepsis from pneumonia continue patient on Rocephin and vancomycin continue management and medical ICU. She has disease consulted. Escalated started on IV acyclovir as well prophylactically * Regards to atrial fibrillation with rapid monitor response continue Cardizem drip continue patient on IV heparin cardiology following * Regards to acute CVA, MRI brain requested neurology consulted continue patient on IV heparin. Patient will need to be transferred to tertiary center [facility] called per neurology request * In regards to new onset seizure, continue patient on Keppra 1 g twice daily Ativan as needed for tonic-clonic seizures * In regards to sepsis blood cultures show up to coccus pneumonia. * In regards to history of hypertension continue to hold lisinopril , hydrochlorothiazide * Regards to acute encephalopathy, likely metabolic in origin however will need to rule out CVA, neurology on consult * Remains n.p.o. secondary to encephalopathy * Care plan discussed with neurology, patient will need to be transferred, transfer process initiated [facility] called at [phone], facesheet faxed for patient information. Will coordinate with medical ICU team waiting for callback as of 1:24 PM 12/19/2023 Objective - Vital Signs Vital signs: Vital Signs Temp 98.5 F 12/19/23 12:00 Pulse 114 H 12/19/23 13:00 Resp 20 12/19/23 13:00 BP 135/80 12/19/23 13:00 Pulse Ox 94 L 12/19/23 13:00 FiO2 90 12/19/23 12:00 Intake & Output 12/18/23 12/19/23 12/19/23 18:59 06:59 18:59 Intake Total 1076.177 423.706 429.788 Output Total 1100 1010 755 Balance -23.823 -586.294 -325.212 Weight 82.5 kg Intake: IV 100 120 70 IV Fluid 100 120 70 Intake, IV Titration 976.177 303.706 359.788 Amount Diltiazem 125 mg In 112.167 121.5 Sodium Chloride 0.9% 100 ml @ 10 MG/HR 10 mls/hr IV .[id number] [facility] Rx#: [id number] Heparin Sod,Pork in 0.45% 114.010 182.206 109.788 NaCl 25,000 unit In 0.45 % NaCl 1 250ml.bag @ 12 UNITS/KG/HR 7.62 mls/hr IV .Q24H [facility] Rx#: [id number] Magnesium Sulfate-D5w Pmx 200 1 gm In Dextrose/Water 1 100ml.bag @ 100 mls/hr IVPB Q1H [facility] Rx#: [id number] Piperacillin-Tazobactam 3 100 .375 gm In Sodium Chloride 0.9% 100 ml @ 25 mls/hr IVPB Q8HR [facility] Rx# :[id number] Potassium Chloride 10 meq 400 In Water For Injection 1 100ml.bag @ 100 mls/hr IVPB Q1H [facility] Rx#: [id number] Potassium Chloride 10 meq 200 In Water For Injection 1 100ml.bag @ 100 mls/hr IVPB Q1HR [facility] Rx#: [id number] cefTRIAXone 2 gm In 50 50 Sodium Chloride 0.9% 50 ml @ 100 mls/hr IVPB Q24HR [facility] Rx#:[id number] Output: Urine 1100 1010 755 Other: Voiding Method Indwelling Catheter Indwelling Catheter Indwelling Catheter - Labs CBC & Chem 7: 12/19/23 02:03 12/19/23 09:52 Labs: Abnormal Lab Results - Last 24 Hours (Table) 12/18/23 12/18/23 12/18/23 Range/Units 06:24 17:10 19:18 WBC (3.8-10.6) k/uL RBC (4.30-5.90) m/uL Hgb (13.0-17.5) gm/dL Hct (39.0-53.0) % APTT 35.2 H (22.0-30.0) sec Sodium (137-145) mmol/L Potassium (3.5-5.1) mmol/L Carbon Dioxide (22-30) mmol/L BUN (9-20) mg/dL Glucose (74-99) mg/dL POC Glucose (mg/dL) 131 H (70-110) mg/dL Calcium (8.4-10.2) mg/dL Procalcitonin 0.84 H (0.02-0.09) ng/mL 12/18/23 12/19/23 12/19/23 Range/Units 19:18 02:03 02:03 WBC 24.9 H (3.8-10.6) k/uL RBC 4.19 L (4.30-5.90) m/uL Hgb 12.2 L (13.0-17.5) gm/dL Hct 37.1 L (39.0-53.0) % APTT (22.0-30.0) sec Sodium 135 L (137-145) mmol/L Potassium 3.1 L 3.3 L (3.5-5.1) mmol/L Carbon Dioxide 21 L (22-30) mmol/L BUN 21 H (9-20) mg/dL Glucose 147 H (74-99) mg/dL POC Glucose (mg/dL) (70-110) mg/dL Calcium 8.1 L (8.4-10.2) mg/dL Procalcitonin (0.02-0.09) ng/mL 12/19/23 12/19/23 12/19/23 Range/Units 02:03 04:11 09:52 WBC (3.8-10.6) k/uL RBC (4.30-5.90) m/uL Hgb (13.0-17.5) gm/dL Hct (39.0-53.0) % APTT 36.1 H 41.1 H (22.0-30.0) sec Sodium (137-145) mmol/L Potassium (3.5-5.1) mmol/L Carbon Dioxide (22-30) mmol/L BUN (9-20) mg/dL Glucose (74-99) mg/dL POC Glucose (mg/dL) 156 H (70-110) mg/dL Calcium (8.4-10.2) mg/dL Procalcitonin (0.02-0.09) ng/mL 12/19/23 Range/Units 09:52 WBC (3.8-10.6) k/uL RBC (4.30-5.90) m/uL Hgb (13.0-17.5) gm/dL Hct (39.0-53.0) % APTT (22.0-30.0) sec Sodium (137-145) mmol/L Potassium 3.4 L (3.5-5.1) mmol/L Carbon Dioxide (22-30) mmol/L BUN (9-20) mg/dL Glucose (74-99) mg/dL POC Glucose (mg/dL) (70-110) mg/dL Calcium (8.4-10.2) mg/dL Procalcitonin (0.02-0.09) ng/mL Microbiology - Last 24 Hours (Table) 12/17/23 03:05 Blood Culture Gram Stain - Final Blood Blood Culture - Final Streptococcus pneumoniae 12/18/23 17:00 Gram Stain - Preliminary Sputum
--- NOTE | 2023-12-19 14:20 | P.DS ---
Providers Date of admission: 12/17/23 06:05 Expected date of discharge: 12/19/23 Attending physician: James Betancur MD Consults: 12/17/23 06:12 Consult Physician Routine Consulting Provider: Cornelius Noel Consult Reason/Comments: copd Do you want consulting provider notified?: Yes 12/17/23 09:20 Consult Physician Routine Consulting Provider: Angela Anaya Consult Reason/Comments: sepsis,recent esoph dilation Do you want consulting provider notified?: Yes 12/17/23 18:09 Consult Physician Routine Consulting Provider: Lior Noel Consult Reason/Comments: AMS Do you want consulting provider notified?: Yes 12/17/23 19:44 Consult Physician Urgent Consulting Provider: Leigha Santa Consult Reason/Comments: new onset afib rvr Do you want consulting provider notified?: Yes Primary care physician: James Betancur MD Hospital Course: 78 year old male with PMH of hypertension, hypothyroidism, diabetes mellitus and previous throat cancer s/p radiation and permanent tracheostomy. * Approximately 1 week ago at [facility] he underwent EGD with dilation for his longstanding esophageal stricture. He has been constipated since this procedure and had been having difficulty urinating, but denies any fevers or respiratory issues earlier in the week. Pt's reports she noticed he fell two times and hit his head and was noted with fever at home so was brought in to the hospital. * On presentation WBC 13.8 Hemoglobin 12.2, Na 130 K 4.4. BUN 16. Creatinine 0.81. Glucose 223. Initial lactic acid 3.2, currently 1.5. LFTs are unremarkable. Urinalysis with trace protein 1+ glucose. 1+ ketones high WBCs and rare bacteria. * Viral screen was negative. Chest x-ray revealed cardiomegaly, no acute cardiopulmonary process. Pt with increasing O2 requirements subsequently with 40% FiO2 via trach collar in addition to tachycardia. * 12/18/2023. Patient seen and evaluated bedside, patient in medical ICU, patient on oxygen through trach collar 90% FiO2 10 L * 12/18: Patient seen and evaluated bedside, care plan discussed with neurology at bedside, EEG noted epileptiform activity noted patient was given loading dose of Keppra and was given Ativan, concern for recurrent seizure hence requested to transfer to [facility], transfer center contacted at [facility] patient was noted to go to medical ICU. Will coordinate regarding transfer, and for excepting physician. Continue patient on IV Rocephin dose increased to 2 g twice daily. * Discussed with [facility] patient will go to medical ICU accepting physician as damon sands. Waiting for bed PHYSICAL EXAMINATION: GENERAL: The patient is alert and oriented x 0 , ill appearance, trach in place HEENT: Pupils constricted, eyes left-sided deviation, suspect neglect CARDIOVASCULAR: S1 and S2 present. Irregular tachycardia noted PULMONARY: Creased breath sounds bilateral laterally, trach mask in place ABDOMEN: Soft, nontender, nondistended, normoactive bowel sounds. No palpable organomegaly. MUSCULOSKELETAL: No joint swelling or deformity. EXTREMITIES: No cyanosis, clubbing, or pedal edema. NEUROLOGICAL: DISoriented, neurological exam limited Assessment and plan * Acute hypoxemic respiratory failure with aspiration pneumonia * Sepsis secondary to pneumonia * Strep Pneumonia bacteremia * SuspecT acute CVA involving left basal ganglia * Acute encephalopathy multifactorial ischemic, metabolic * New onset seizure * Atrial fibrillation with rapid ventricle response * History of throat cancer s/p tracheostomy in place * Acute metabolic encephalopathy * esophageal stricture s/p dilatation prior to admission 1 week ago * In regards to sepsis from pneumonia continue patient on Rocephin and vancomycin continue management and medical ICU. She has disease consulted. Escalated started on IV acyclovir as well prophylactically * Regards to atrial fibrillation with rapid monitor response continue Cardizem drip continue patient on IV heparin cardiology following * Regards to acute CVA, MRI brain requested neurology consulted continue patient on IV heparin. Patient will need to be transferred to tertiary center [facility] called per neurology request * In regards to new onset seizure, continue patient on Keppra 1 g twice daily Ativan as needed for tonic-clonic seizures * In regards to sepsis blood cultures show up to coccus pneumonia. * In regards to history of hypertension continue to hold lisinopril , hydrochlorothiazide * Regards to acute encephalopathy, likely metabolic in origin however will need to rule out CVA, neurology on consult * Remains n.p.o. secondary to encephalopathy * Care plan discussed with neurology, patient will need to be transferred, transfer process initiated [facility] called at [phone], facesheet faxed for patient information. Will coordinate with medical ICU team waiting for callback as of 1:24 PM 12/19/2023 * Patient accepted for transfer to 2: 19PM accepting physician as damon sands. Waiting for bed micu Patient Condition at Discharge: Fair Plan - Discharge Summary New Discharge Prescriptions: No Action amLODIPine [Norvasc] 5 mg PO DAILY Levothyroxine Sodium [Synthroid] 88 mcg PO DAILY Aspirin EC [Ecotrin Low Dose] 81 mg PO DAILY #30 tablet. Glycopyrrolate [Robinul] 2 mg PO TID Lisinopril/Hydrochlorothiazide [Zestoretic 20-25] 1 tab PO DAILY Cholecalciferol [Vitamin D3 (25 Mcg = 1000 Iu)] 25 mcg PO DAILY Ibuprofen [Motrin] 600 mg PO TID Hydrocodone/Acetaminophen [Hydrocodone/Acetaminophen 7.5-325/15 ML] 15 ml PO Q6H Omeprazole [PriLOSEC] 40 mg PO DAILY Cyclobenzaprine [Flexeril] 5 mg PO TID Discharge Medication List Levothyroxine Sodium [Synthroid] 88 mcg PO DAILY 01/27/16 [History] amLODIPine [Norvasc] 5 mg PO DAILY 01/27/16 [History] Aspirin EC [Ecotrin Low Dose] 81 mg PO DAILY #30 tablet. 01/30/16 [Rx] Glycopyrrolate [Robinul] 2 mg PO TID 04/12/19 [History] Cholecalciferol [Vitamin D3 (25 Mcg = 1000 Iu)] 25 mcg PO DAILY 12/17/23 [History] Cyclobenzaprine [Flexeril] 5 mg PO TID 12/17/23 [History] Hydrocodone/Acetaminophen [Hydrocodone/Acetaminophen 7.5-325/15 ML] 15 ml PO Q6H 12/17/23 [History] Ibuprofen [Motrin] 600 mg PO TID 12/17/23 [History] Lisinopril/Hydrochlorothiazide [Zestoretic 20-25] 1 tab PO DAILY 12/17/23 [History] Omeprazole [PriLOSEC] 40 mg PO DAILY 12/17/23 [History] Follow up Appointment(s)/Referral(s): James Betancur MD [Primary Care Provider] - 1-2 days
--- NOTE | 2023-12-19 14:23 | P.DS ---
Providers Date of admission: 12/17/23 06:05 Expected date of discharge: 12/19/23 Attending physician: James Betancur MD Consults: 12/17/23 06:12 Consult Physician Routine Consulting Provider: Cornelius Noel Consult Reason/Comments: copd Do you want consulting provider notified?: Yes 12/17/23 09:20 Consult Physician Routine Consulting Provider: Angela Anaya Consult Reason/Comments: sepsis,recent esoph dilation Do you want consulting provider notified?: Yes 12/17/23 18:09 Consult Physician Routine Consulting Provider: Liro Noel Consult Reason/Comments: AMS Do you want consulting provider notified?: Yes 12/17/23 19:44 Consult Physician Urgent Consulting Provider: Leigha Santa Consult Reason/Comments: new onset afib rvr Do you want consulting provider notified?: Yes Primary care physician: James Betancur MD Hospital Course: Hospital Course: 78 year old male with PMH of hypertension, hypothyroidism, diabetes mellitus and previous throat cancer s/p radiation and permanent tracheostomy. * Approximately 1 week ago at [facility] he underwent EGD with dilation for his longstanding esophageal stricture. He has been constipated since this procedure and had been having difficulty urinating, but denies any fevers or respiratory issues earlier in the week. Pt's reports she noticed he fell two times and hit his head and was noted with fever at home so was brought in to the hospital. * On presentation WBC 13.8 Hemoglobin 12.2, Na 130 K 4.4. BUN 16. Creatinine 0.81. Glucose 223. Initial lactic acid 3.2, currently 1.5. LFTs are unremarkable. Urinalysis with trace protein 1+ glucose. 1+ ketones high WBCs and rare bacteria. * Viral screen was negative. Chest x-ray revealed cardiomegaly, no acute cardiopulmonary process. Pt with increasing O2 requirements subsequently with 40% FiO2 via trach collar in addition to tachycardia. * 12/18/2023. Patient seen and evaluated bedside, patient in medical ICU, tegan tatum on oxygen through trach collar 90% FiO2 10 L * 12/18: Patient seen and evaluated bedside, care plan discussed with neurology at bedside, EEG noted epileptiform activity noted patient was given loading dose of Keppra and was given Ativan, concern for recurrent seizure hence requested to transfer to [facility], transfer center contacted at [facility] patient was noted to go to medical ICU. Will coordinate regarding transfer, and for excepting physician. Continue patient on IV Rocephin dose increased to 2 g twice daily. * Discussed with [facility] patient will go to medical ICU accepting physician as damon sands. Waiting for bed PHYSICAL EXAMINATION: GENERAL: The patient is alert and oriented x 0 , ill appearance, trach in place HEENT: Pupils constricted, eyes left-sided deviation, suspect neglect CARDIOVASCULAR: S1 and S2 present. Irregular tachycardia noted PULMONARY: Creased breath sounds bilateral laterally, trach mask in place ABDOMEN: Soft, nontender, nondistended, normoactive bowel sounds. No palpable organomegaly. MUSCULOSKELETAL: No joint swelling or deformity. EXTREMITIES: No cyanosis, clubbing, or pedal edema. NEUROLOGICAL: DISoriented, neurological exam limited Assessment and plan * Acute hypoxemic respiratory failure with aspiration pneumonia * Sepsis secondary to pneumonia * Strep Pneumonia bacteremia * SuspecT acute CVA involving left basal ganglia * Acute encephalopathy multifactorial ischemic, metabolic * New onset seizure * Atrial fibrillation with rapid ventricle response * History of throat cancer s/p tracheostomy in place * Acute metabolic encephalopathy * esophageal stricture s/p dilatation prior to admission 1 week ago * In regards to sepsis from pneumonia continue patient on Rocephin and vancomycin continue management and medical ICU. She has disease consulted. Escalated started on IV acyclovir as well prophylactically * Regards to atrial fibrillation with rapid monitor response continue Cardizem drip continue patient on IV heparin cardiology following * Regards to acute CVA, MRI brain requested neurology consulted continue patient on IV heparin. Patient will need to be transferred to tertiary center [facility] called per neurology request * In regards to new onset seizure, continue patient on Keppra 1 g twice daily Ativan as needed for tonic-clonic seizures * In regards to sepsis blood cultures show up to coccus pneumonia. * In regards to history of hypertension continue to hold lisinopril , hydrochlorothiazide * Regards to acute encephalopathy, likely metabolic in origin however will need to rule out CVA, neurology on consult * Remains n.p.o. secondary to encephalopathy * Care plan discussed with neurology, patient will need to be transferred, transfer process initiated [facility] called at [phone], facesheet faxed for patient information. Will coordinate with medical ICU team waiting for callback as of :24 PM 12/19/2023 * Patient accepted for transfer to 2: 19PM accepting physician as damon sands. Waiting for bed micu * Patient Condition at Discharge: Guarded Patient Condition at Discharge: Fair Plan - Discharge Summary New Discharge Prescriptions: New cefTRIAXone [Rocephin] 2 gm IVPB Q12HR each Atorvastatin [Lipitor] 40 mg PO HS tab Continue Levothyroxine Sodium [Synthroid] 88 mcg PO DAILY Aspirin EC [Ecotrin Low Dose] 81 mg PO DAILY #30 tablet. Glycopyrrolate [Robinul] 2 mg PO TID Cholecalciferol [Vitamin D3 (25 Mcg = 1000 Iu)] 25 mcg PO DAILY Cyclobenzaprine [Flexeril] 5 mg PO TID Discontinued amLODIPine [Norvasc] 5 mg PO DAILY Lisinopril/Hydrochlorothiazide [Zestoretic 20-25] 1 tab PO DAILY Ibuprofen [Motrin] 600 mg PO TID Hydrocodone/Acetaminophen [Hydrocodone/Acetaminophen 7.5-325/15 ML] 15 ml PO Q6H Omeprazole [PriLOSEC] 40 mg PO DAILY Discharge Medication List Levothyroxine Sodium [Synthroid] 88 mcg PO DAILY 01/27/16 [History] Aspirin EC [Ecotrin Low Dose] 81 mg PO DAILY #30 tablet. 01/30/16 [Rx] Glycopyrrolate [Robinul] 2 mg PO TID 04/12/19 [History] Cholecalciferol [Vitamin D3 (25 Mcg = 1000 Iu)] 25 mcg PO DAILY 12/17/23 [History] Cyclobenzaprine [Flexeril] 5 mg PO TID 12/17/23 [History] Atorvastatin [Lipitor] 40 mg PO HS tab 12/19/23 [Rx] cefTRIAXone [Rocephin] 2 gm IVPB Q12HR each 12/19/23 [Rx] Follow up Appointment(s)/Referral(s): James Betancur MD [Primary Care Provider] - 1-2 days Discharge Disposition: DISCH/TRANS TO A [facility]
--- NOTE | 2023-12-19 14:43 | P.PN ---
Subjective Progress Note Date: 12/19/23 Principal diagnosis: Reason for follow-up with sepsis pneumonia and bacteremia Patient is a 78-year-old male with a past medical history significant for hypertension hypothyroidism, diabetes mellitus did have a history of throat cancer status post pulmonary tracheostomy tube placement and recently did have dilatation of his esophageal sphincter presented to hospital with multiple falls and weakness patient was febrile and now with evidence of strep pneumo bacteremi a. On today's evaluation that is 12/19/2023, the patient did have resolution of his fever and is afebrile this morning low-grade fever 100.5 last evening patient is currently unresponsive is hemodynamically stable not requiring any pressor support and the patient is currently on trach collar 10 L high flow oxygen no vomiting diarrhea or any other changes reported by the nursing staff. Patient white count is 24.9 creatinine 0.88, blood culture with strep pneumo that is a sensitive pathogen Objective - Vital Signs Vital signs: Vital Signs Temp 98.5 F 12/19/23 12:00 Pulse 114 H 12/19/23 13:00 Resp 20 12/19/23 13:00 BP 135/80 12/19/23 13:00 Pulse Ox 94 L 12/19/23 13:00 FiO2 90 12/19/23 12:00 Intake & Output 12/18/23 12/19/23 12/19/23 18:59 06:59 18:59 Intake Total 1076.177 423.706 526.121 Output Total 1100 1010 755 Balance -23.823 -586.294 -228.879 Weight 82.5 kg Intake: IV 100 120 70 IV Fluid 100 120 70 Intake, IV Titration 976.177 303.706 456.121 Amount Diltiazem 125 mg In 112.167 121.5 96.333 Sodium Chloride 0.9% 100 ml @ 10 MG/HR 10 mls/hr IV .[id number] [facility] Rx#: [id number] Heparin Sod,Pork in 0.45% 114.010 182.206 109.788 NaCl 25,000 unit In 0.45 % NaCl 1 250ml.bag @ 12 UNITS/KG/HR 7.62 mls/hr IV .Q24H [facility] Rx#: [id number] Magnesium Sulfate-D5w Pmx 200 1 gm In Dextrose/Water 1 100ml.bag @ 100 mls/hr IVPB Q1H [facility] Rx#: [id number] Piperacillin-Tazobactam 3 100 .375 gm In Sodium Chloride 0.9% 100 ml @ 25 mls/hr IVPB Q8HR [facility] Rx# :[id number] Potassium Chloride 10 meq 400 In Water For Injection 1 100ml.bag @ 100 mls/hr IVPB Q1H [facility] Rx#: [id number] Potassium Chloride 10 meq 200 In Water For Injection 1 100ml.bag @ 100 mls/hr IVPB Q1HR [facility] Rx#: [id number] cefTRIAXone 2 gm In 50 50 Sodium Chloride 0.9% 50 ml @ 100 mls/hr IVPB Q24HR [facility] Rx#:[id number] Output: Urine 1100 1010 755 Other: Voiding Method Indwelling Catheter Indwelling Catheter Indwelling Catheter - Exam GENERAL DESCRIPTION: An elderly male lying in bed in no distress RESPIRATORY SYSTEM: Unlabored breathing , decreased breath sounds at bases HEART: S1 S2 regular rate and rhythm , ABDOMEN: Soft , no tenderness EXTREMITIES: No edema feet - Labs CBC & Chem 7: 12/19/23 02:03 12/19/23 09:52 Labs: Abnormal Lab Results - Last 24 Hours (Table) 12/18/23 12/18/23 12/18/23 Range/Units 06:24 17:10 19:18 WBC (3.8-10.6) k/uL RBC (4.30-5.90) m/uL Hgb (13.0-17.5) gm/dL Hct (39.0-53.0) % APTT 35.2 H (22.0-30.0) sec Sodium (137-145) mmol/L Potassium (3.5-5.1) mmol/L Carbon Dioxide (22-30) mmol/L BUN (9-20) mg/dL Glucose (74-99) mg/dL POC Glucose (mg/dL) 131 H (70-110) mg/dL Calcium (8.4-10.2) mg/dL Procalcitonin 0.84 H (0.02-0.09) ng/mL 12/18/23 12/19/23 12/19/23 Range/Units 19:18 02:03 02:03 WBC 24.9 H (3.8-10.6) k/uL RBC 4.19 L (4.30-5.90) m/uL Hgb 12.2 L (13.0-17.5) gm/dL Hct 37.1 L (39.0-53.0) % APTT (22.0-30.0) sec Sodium 135 L (137-145) mmol/L Potassium 3.1 L 3.3 L (3.5-5.1) mmol/L Carbon Dioxide 21 L (22-30) mmol/L BUN 21 H (9-20) mg/dL Glucose 147 H (74-99) mg/dL POC Glucose (mg/dL) (70-110) mg/dL Calcium 8.1 L (8.4-10.2) mg/dL Procalcitonin (0.02-0.09) ng/mL 12/19/23 12/19/23 12/19/23 Range/Units 02:03 04:11 09:52 WBC (3.8-10.6) k/uL RBC (4.30-5.90) m/uL Hgb (13.0-17.5) gm/dL Hct (39.0-53.0) % APTT 36.1 H 41.1 H (22.0-30.0) sec Sodium (137-145) mmol/L Potassium (3.5-5.1) mmol/L Carbon Dioxide (22-30) mmol/L BUN (9-20) mg/dL Glucose (74-99) mg/dL POC Glucose (mg/dL) 156 H (70-110) mg/dL Calcium (8.4-10.2) mg/dL Procalcitonin (0.02-0.09) ng/mL 12/19/23 Range/Units 09:52 WBC (3.8-10.6) k/uL RBC (4.30-5.90) m/uL Hgb (13.0-17.5) gm/dL Hct (39.0-53.0) % APTT (22.0-30.0) sec Sodium (137-145) mmol/L Potassium 3.4 L (3.5-5.1) mmol/L Carbon Dioxide (22-30) mmol/L BUN (9-20) mg/dL Glucose (74-99) mg/dL POC Glucose (mg/dL) (70-110) mg/dL Calcium (8.4-10.2) mg/dL Procalcitonin (0.02-0.09) ng/mL Microbiology - Last 24 Hours (Table) 12/17/23 03:05 Blood Culture Gram Stain - Final Blood Blood Culture - Final Streptococcus pneumoniae 12/18/23 17:00 Gram Stain - Preliminary Sputum Assessment and Plan (1) Sepsis Current Visit: Yes Status: Acute Code(s): A41.9 - SEPSIS, UNSPECIFIED ORGANISM SNOMED Code(s): 10553579 (2) Pneumonia Current Visit: Yes Status: Acute Code(s): J18.9 - PNEUMONIA, UNSPECIFIED ORGANISM SNOMED Code(s): 834527358 (3) Bacteremia Current Visit: Yes Status: Acute Code(s): R78.81 - BACTEREMIA SNOMED Code(s): 4124196 Plan: 1patient presented to hospital with sepsis in this patient who did have a fever tachycardia elevated white count source is likely pneumonia concerning for possible aspiration pneumonitis in this patient recently did esophageal dilatation for stricture the initial chest x-ray reported no significant normality patient abdominal was soft on examination and urine was not significantly positive 2-patient did have Streptococcus pneumonia bacteremia source likely pneumonia, underlying [employer] infection less likely but not excluded 3blood cultures has been repeated document clearance of bacteremia 4with a strep toe being a sensitive pathogen continue with Rocephin and discontinue vancomycin Family at bedside multiple questions answered, possible transfer to [facility] concerning for new CVA and seizure activity Case discussed in detail with the admitting team as well as neurologist Dictation was produced using [employer] dictation software. please excuse any grammatical, word or spelling errors. Time with Patient: Less than 30
[2023-12-19] MEDS ORDERED: ACYCLOVIR SODIUM 800 MG in SODIUM CHLORIDE 0.9% 100 ML IVPB SCH (16:00)
--- NOTE | 2023-12-19 16:29 | US ---
EXAMINATION TYPE: US carotid duplex BILAT DATE OF EXAM: 12/19/2023 COMPARISON: None. CLINICAL INDICATION: Male, 78 years old with history of stroke; ICU patient. HX right ICA occlusion. TECHNIQUE: Carotid duplex ultrasound examination. Indirect Doppler criteria was utilized. FINDINGS: EXAM MEASUREMENTS: RIGHT: Peak Systolic Velocity (PSV) cm/sec ----- Right CCA: 26.3 ----- Right ICA: Occluded ----- Right ECA: 93.1 ICA/CCA ratio: N/A due to ICA occluded RIGHT: End Diastole cm/sec ----- Right CCA: 0.0 ----- Right ICA: Occluded, no visualized color Doppler flow. ----- Right ECA: 0.0 LEFT: Peak Systolic Velocity (PSV) cm/sec ----- Left CCA: 64.7 ----- Left ICA: 74.6 ----- Left ECA: 69.1 ICA/CCA ratio: 1.2 LEFT: End Diastole cm/sec ----- Left CCA: 17.5 ----- Left ICA: 32.9 ----- Left ECA: 5.4 VERTEBRALS (direction of flow): Right Vertebral: Unable to visualize Left Vertebral: Antegrade Rhythm: Arrhythmia IMPRESSION: 1. 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 2. Moderate atherosclerotic disease of the left cervical carotid system without severe stenosis. 3. Suspected underlying cardiac arrhythmia detected on Doppler sequences, correlate with EKG results. .
[2023-12-19] MEDS ORDERED: VANCOMYCIN 1,500 MG in SODIUM CHLORIDE 0.9% 500 ML 500 ML IVPB SCH (17:00)
[2023-12-19] MEDS: levETIRAcetam IV 500 MG/5 ML VIAL IVP SCH (19:56)
[2023-12-19] MEDS: ATORVASTATIN 40 MG TAB PO SCH (20:08)
[2023-12-20] MEDS: POTASSIUM CHLORIDE 10 MEQ in WATER FOR INJECTION 1 100ML.BAG IVPB SCH (02:39)
--- NOTE | 2023-12-20 03:43 | EEG ---
ELECTROENCEPHALOGRAM REPORT CLINICAL HISTORY: This is a 78-year-old gentleman with altered mental status with left gaze preference. The video EEG is obtained to evaluate for seizure epileptiform activity. RELEVANT MEDICATIONS: 1. Ativan. 2. Keppra. EEG TYPE: A routine 21-channel EEG with video using the 10/20 electrode placement system. DESCRIPTION: Background consists of [id number] voltage of 5 to 6 Hertz activity intermixed with delta activity. There was no physiological stage 2 sleep architecture. There is no focal slowing. Interictal and ictal, there is a sharply controlled activity that is low voltage over the right temporal region throughout the entire study and is 8 to 9 hertz activity and at times is 11.5 to 12.5 hertz activity. For the most part, it is polymorphic, nonrhythmic. Towards the middle and end, it seems more semirhythmic and there is no evolution with this. It briefly resolved at 28 minutes after 2 mg of Ativan at 28 minutes of the recording of the study, but came back again, then resolved again after another 2 mg of Ativan at around 43 minutes and 30 seconds of the reporting of the study. ACTIVATION PROCEDURE: Photic stimulation did not evoke a posterior driving response. There is no abnormality during the photic stimulation. Hyperventilation is not performed. CLINICAL INTERPRETATION: This is an abnormal routine EEG. The background slowing is suggestive of moderate encephalopathy. During the study, there is continuous sharply contoured activity that seemed semirhythmic over the right temporal and resolved after a total of 4 mg of Ativan. This is concerning for possible focal status. Recommend a prolonged EEG. Clinical correlation is recommended. MMPRAMOD / ASHUTOSHN: [id number] /
[2023-12-20 04:34] LABS: Basophils % (A) 0 %; Eosinophils % (A) 0 %; Lymphocytes # (A) 0.8 k/uL (1.0-4.8); Lymphocytes % (A) 4 %; MCH 28.4 pg (25.0-35.0); MCHC 31.7 g/dL (31.0-37.0); MCV 89.4 fL (80.0-100.0); Mean Platelet Volume 7.8; Monocytes # (A) 0.9 k/uL (0-1.0); Monocytes % (A) 4 %; Neutrophils # (A) 18.1 k/uL (1.3-7.7); Neutrophils % (A) 90 %; Platelet Count 330 k/uL (150-450); RBC 4.58 m/uL (4.30-5.90); RDW 13.3 % (11.5-15.5); WBC 20.1 k/uL (3.8-10.6)
[2023-12-20 04:53] VITALS: TEMP 99.3
[2023-12-20 04:57] LABS: African American GFR (CKD) >90 (>60 ml/min/1.73 sqM); Anion Gap 11 mmol/L; Blood Urea Nitrogen 24 mg/dL (9-20); Calcium 8.3 mg/dL (8.4-10.2); Carbon Dioxide 21 mmol/L (22-30); Chloride 105 mmol/L (98-107); Glucose 134 mg/dL (74-99); Magnesium 2.2 mg/dL (1.6-2.3); Non-African American GFR(CKD) 87 (>60 ml/min/1.73 sqM); Sodium 137 mmol/L (137-145)
[2023-12-20 05:51] LABS: Glucose,Whole Blood 124 mg/dL (70-110)
[2023-12-20 07:41] VITALS: BP 128/68; PULSE 120; RESP 17
[2023-12-20 07:50] LABS: Chol/HDL Ratio 3.07 Ratio; LDL Cholesterol,Calculated 60.2 mg/dL (0.0-131.0)
[2023-12-20] MEDS ORDERED: LEVOTHYROXINE IVP 100 MCG/5 ML VIAL IV SCH (09:00)
--- NOTE | 2023-12-20 10:14 | XR ---
EXAMINATION TYPE: XR chest 1V portable DATE OF EXAM: 12/20/2023 5:21 AM CLINICAL INDICATION:Male, 78 years old with history of pneumonia; [facility] COMPARISON: Chest radiograph yesterday TECHNIQUE: XR chest 1V portable Frontal view of the chest. FINDINGS: Lungs/Pleura: Bilateral pleural effusions. Pulmonary vascularity: Widespread bilateral pulmonary venous congestion and mae edema. Heart/mediastinum: Mild cardiac enlargement. Musculoskeletal: No acute osseous pathology. Other findings: None Lines/Tubes: None. IMPRESSION: Constellation of findings suggesting congestive heart failure
== END 2023-12-20 08:56 | disposition short-term general hospital (02) | DRG 871 ==
LOC: EC 01:17 → 6NMEDSUR 06:05 → 5NMEDONC 13:20 → 3SCARD 17:38 → OBSVTOIN 18:30 → 2SICU 21:39
PROVIDERS: ADMIT Family Medicine; ATTEND Family Medicine
DX: A40.3 Sepsis due to Streptococcus pneumoniae (principal); G93.41 Metabolic encephalopathy; I63.9 Cerebral infarction, unspecified; J13 Pneumonia due to Streptococcus pneumoniae; J96.01 Acute respiratory failure with hypoxia; J69.0 Pneumonitis due to inhalation of food and vomit; R65.20 Severe sepsis without septic shock; E87.3 Alkalosis; I42.9 Cardiomyopathy, unspecified; E87.1 Hypo-osmolality and hyponatremia; J44.0 Chronic obstructive pulmonary disease with (acute) lower respiratory infection; I85.00 Esophageal varices without bleeding; I11.0 Hypertensive heart disease with heart failure; E03.9 Hypothyroidism, unspecified; I08.1 Rheumatic disorders of both mitral and tricuspid valves; I48.91 Unspecified atrial fibrillation; I50.9 Heart failure, unspecified; R56.9 Unspecified convulsions; K22.2 Esophageal obstruction; I69.392 Facial weakness following cerebral infarction; Z11.52 Encounter for screening for COVID-19; Z93.0 Tracheostomy status; R33.9 Retention of urine, unspecified; K59.00 Constipation, unspecified; K80.20 Calculus of gallbladder without cholecystitis without obstruction; N20.0 Calculus of kidney; R29.6 Repeated falls; Z79.82 Long term (current) use of aspirin; Z79.84 Long term (current) use of oral hypoglycemic drugs; Z79.890 Hormone replacement therapy; Z79.899 Other long term (current) drug therapy; Z85.819 Personal history of malignant neoplasm of unspecified site of lip, oral cavity, and pharynx; Z87.891 Personal history of nicotine dependence; Z92.3 Personal history of irradiation; Z28.311 Partially vaccinated for COVID-19; I69.30 Unspecified sequelae of cerebral infarction; E11.9 Type 2 diabetes mellitus without complications
CPT/HCPCS: 36415; 36600; 51798; 70450; 71045; 71250; 74150; 80048; 80053; 80061; 80202; 81001; 82140; 82805; 83605; 83735; 83880; 84100; 84132; 84145; 84443; 85025; 85027; 85610; 85730; 86140; 87040; 87070; 87077; 87186; 87205; 87636; 93306; 93880; 95816; 96361; 96365; 96367; 96368; 96375; 99291